=== PATIENT | female | born 1950 | race Caucasian/White ===

== ENCOUNTER → 2017-06-05 | Outpatient (CLI) | payer BC | END | disposition home or self-care (01) | LOC: C.PAPS 10:52 | PROVIDERS: ATTEND Obstetrics & Gynecology | DX: Z01.419 Encounter for gynecological examination (general) (routine) without abnormal findings (principal) ==

== ENCOUNTER → 2017-07-12 | Outpatient (CLI) | payer BC ==
[2017-07-12 18:49] LABS: URINE APPEARANCE CLOUDY (CLEAR); URINE BILIRUBIN NEG (NEG); URINE COLOR YELLOW; URINE NITRITE NEG (NEG); URINE SPECIFIC GRAVITY 1.021 (1.000-1.030); UROBILINOGEN NEG (NEG)
[2017-07-12 19:00] LABS: MANUAL MICROSCOPIC REQUIRED? NO; REVIEW REQ? NO
== END | disposition home or self-care (01) ==
LOC: C.LAB 17:37
PROVIDERS: ATTEND Obstetrics & Gynecology
DX: R39.9 Unspecified symptoms and signs involving the genitourinary system (principal); A49.8 Other bacterial infections of unspecified site

== ENCOUNTER → 2017-08-21 | Outpatient (CLI) | payer BC ==
[2017-08-21 13:03] LABS: MANUAL MICROSCOPIC REQUIRED? YES; REVIEW REQ? NO; URINE COLOR ORANGE
[2017-08-21 13:04] LABS: URINE SPECIFIC GRAVITY 1.014 (1.000-1.030)
[2017-08-21 13:12] LABS: SULFASALICYLIC ACID NEG (NEG); URINE APPEARANCE CLEAR (CLEAR)
[2017-08-21 13:32] LABS: URINE BACTERIA 1+ (NEG); URINE RBC 0-4 /hpf (0-4); URINE WBC >30 /hpf (0-5)
== END | disposition home or self-care (01) ==
LOC: C.LAB1850 11:22
PROVIDERS: ATTEND Obstetrics & Gynecology
DX: R39.9 Unspecified symptoms and signs involving the genitourinary system (principal)

== ENCOUNTER → 2017-09-20 | Outpatient (CLI) | payer BC ==
[2017-09-20 12:51] LABS: CHOLESTEROL/HDL RATIO 4.3; THYROID STIMULATING HORMONE 2.28 uIu/ml (0.300-4.500)
== END | disposition home or self-care (01) ==
LOC: C.LAB1850 11:26
PROVIDERS: ATTEND Physician Assistant
DX: Z00.00 Encounter for general adult medical examination without abnormal findings (principal); E78.5 Hyperlipidemia, unspecified; E03.9 Hypothyroidism, unspecified

== ENCOUNTER → 2017-11-17 | Outpatient (CLI) | payer OTHER ==
--- NOTE | 2017-11-17 15:08 | MAMMOGRAPHY REPORT ---
BILATERAL DIGITAL SCREENING MAMMOGRAM TOMOSYNTHESIS WITH CAD: 11/17/2017 CLINICAL HISTORY: Routine screening. Patient has no complaints. TECHNIQUE: Breast tomosynthesis in addition to standard 2D mammography was performed. Current study was also evaluated with a Computer Aided Detection (CAD) system. COMPARISON: Comparison is made to exams dated: 10/07/2016 mammogram, 07/14/2015 mammogram, 03/19/2013 ma mmogram, 07/27/2011 mammogram, 09/04/2009 mammogram - [facility], and 06/05/2008. BREAST COMPOSITION: There are scattered areas of fibroglandular density in both breasts. FINDINGS: No suspicious masses, calcifications, or areas of architectural distortion are noted in ei ther breast. There has been no significant interval change compared to prior exams. A biopsy marker clip is again noted within the left central breast from prior benign stereotactic biopsy of grouped c alcifications. Other scattered bilateral benign-appearing calcifications are not significantly parnell ed. Small circumscribed benign-appearing masses are again noted bilaterally, best seen on the tomosy nthesis images, which are considered benign given the multiplicity and bilaterality and likely repres ent cysts. IMPRESSION: ACR BI-RADS CATEGORY 2: BENIGN There is no mammographic evidence of malignancy. A 1 year screening mammogram is recommended. The pa tient will receive written notification of the results. Approximately 10% of breast cancers are not detected with mammography. A negative mammographic report should not delay biopsy if a clinically suggestive mass is present. Fernanda Tang M.D. /:11/17/2017 13:54:45 Gastroenterology Professor: Annmarie NGUYỄN(R)(M), [facility] letter sent: Normal 1/2 BI-RADS Code: ACR BI-RADS Category 2: Benign
== END | disposition home or self-care (01) ==
LOC: C.MAMM 13:06
PROVIDERS: ATTEND Obstetrics & Gynecology
DX: Z12.31 Encounter for screening mammogram for malignant neoplasm of breast (principal)

== ENCOUNTER → 2017-11-30 | Outpatient (CLI) | payer OTHER | END | disposition home or self-care (01) | LOC: C.LAB1850 10:54 | PROVIDERS: ATTEND Internal Medicine Endocrinology, Diabetes & Metabolism | DX: E11.9 Type 2 diabetes mellitus without complications (principal) ==

== ENCOUNTER → 2017-12-06 | Outpatient (CLI) | payer OTHER | END | disposition home or self-care (01) | LOC: C.LABSPEC 17:30 | PROVIDERS: ATTEND Urology | DX: R30.0 Dysuria (principal); R31.29 Other microscopic hematuria ==

== ENCOUNTER → 2017-12-18 | Outpatient (CLI) | payer OTHER ==
[~2017-12-18] MED LIST: ASPCH81X PO; LEVO100T7 PO; LOSA1TAB PO; METF-384 PO; MULT-1092 PO; VITAMIN D2 PO; WHEAPOW13 PO
[2017-12-18 12:07] LABS: HEMOGLOBIN 15.4 g/dL (12.0-16.0); MEAN CELL VOLUME 90.7 fL (80-100); MEAN CORPUSCULAR HEMOGLOBIN 31.8 pg (25-34); MEAN PLATELET VOLUME 12.5 fL (7.4-10.4); PLATELET COUNT 244 K/uL (130-400); RED CELL DISTRIBUTION WIDTH SD 43.3 fL (36.4-46.3); WHITE BLOOD COUNT 6.59 K/uL (4.8-10.8)
[2017-12-18 12:22] LABS: ALBUMIN 3.8 gm/dl (3.4-5.0); ALT/SGPT 26 U/L (12-78); BLOOD UREA NITROGEN 25 mg/dl (7-18); CALCIUM 9.9 mg/dl (8.5-10.1); CARBON DIOXIDE 25 mmol/L (21-32); CREATININE 0.67 mg/dl (0.60-1.20); GLUCOSE 148 mg/dl (70-99); POTASSIUM 4.4 mmol/L (3.5-5.1); SODIUM 137 mmol/L (136-145)
[2017-12-18 12:25] LABS: ALKALINE PHOSPHATASE 72 U/L (45-117); AST/SGOT 16 U/L (15-37); TOTAL PROTEIN 7.4 gm/dl (6.4-8.2)
[2017-12-18 12:38] LABS: HEMOGLOBIN A1C 6.2 % (4.5-5.6)
== END | disposition home or self-care (01) ==
LOC: C.LAB1850 09:41
PROVIDERS: ATTEND Urology
DX: E11.9 Type 2 diabetes mellitus without complications (principal); R30.0 Dysuria; R31.29 Other microscopic hematuria

== ENCOUNTER → 2017-12-25 | Outpatient (CLI) | payer OTHER ==
[~2017-12-25] MED LIST changes: +OPTIRAY 320 IV PRN
--- NOTE | 2017-12-25 09:50 | DIAGNOSTIC IMAGING REPORT ---
CT OF THE ABDOMEN AND PELVIS WITH AND WITHOUT CONTRAST HEMATURIA PROTOCOL CLINICAL HISTORY: Microscopic hematuria. Dysuria. COMPARISON STUDY: None. TECHNIQUE: Unenhanced and split bolus phase imaging of the abdomen and pelvis was performed. Injection of 93 cc Optiray 320 IV was uneventful. A dose lowering technique was utilized adhering to the principles of ALARA. CT DOSE: 1530.28 mGycm FINDINGS: Lung bases are unremarkable. The liver, spleen, adrenal glands and pancreas are normal. There is no biliary or pancreatic ductal dilatation. There is no peripancreatic or pericholecystic infiltration. There is no abdominal or pelvic lymphadenopathy. There is colonic diverticulosis without evidence for acute diverticulitis. No suspicious osseous lesions are present. An apparent 3.7 cm round left uterine lesion likely reflects a fibroid. There is a suspected smaller right uterine fibroid. No renal, ureteral or bladder calculi are present. There is no hydronephrosis or hydroureter. No upper tract urothelial lesions are identified. There are no solid renal lesions. Bladder is incompletely opacified but no discrete bladder mass is identified. Mild bladder wall thickening is accentuated by underdistention. IMPRESSION: 1. No CT findings to explain hematuria. No urinary calculi or upper tract urothelial lesions. No hydronephrosis. 2. Incomplete opacification of the bladder but no discrete bladder mass identified. 3. Colonic diverticulosis without evidence for acute diverticulitis. 4. Several suspected uterine fibroids. Electronically signed by: Khari Tsai M.D. 12/25/2017 9:49 AM Dictated Date/Time: 12/25/2017 9:11 AM
== END | disposition home or self-care (01) ==
LOC: C.CTS 08:30
PROVIDERS: ATTEND Urology
DX: R30.0 Dysuria (principal); R31.29 Other microscopic hematuria

== ENCOUNTER → 2017-12-27 | Outpatient (CLI) | payer OTHER ==
[~2017-12-27] MED LIST changes: -OPTIRAY 320 IV PRN
[2017-12-27 12:33] LABS: BLOOD UREA NITROGEN 25 mg/dl (7-18); CREATININE 0.73 mg/dl (0.60-1.20)
== END | disposition home or self-care (01) ==
LOC: C.LAB1850 10:16
PROVIDERS: ATTEND Internal Medicine Endocrinology, Diabetes & Metabolism
DX: R31.29 Other microscopic hematuria (principal)

== ENCOUNTER → 2018-01-08 | Day surgery (SDC) | payer BC, OTHER ==
[2017-12-27 12:00] VITALS: Ht 170.2 cm; Wt 80.9 kg
[~2018-01-08] VITALS: Ht 170.2 cm; Wt 80.9 kg
[~2018-01-08] MED LIST changes: +LIDOCAINE HCL 2% 2 ML VIAL (20MG/ML) ONE; +MIDAZOLAM HCL 1 MG/ML 2ML VIAL ONE; +PROPOFOL IV EMULSION 10 MG/ML 20 ML VIAL IV ONE; +SODIUM CHLORIDE 0.9% 500ML 500 ML IV ONE
--- NOTE | 2018-01-08 13:58 | Endo History and Physical ---
History & Physical Date of Service: Jan 08, 2018. Chief Complaint: Screening Referring Physician: Dr. Martin History of Present Illness 67 yo CF who presents for screening colonoscopy. Past Surgical History Hx Cardiac Surgery: No Hx Internal Defibrillator: No Hx Pacemaker: No Hx Abdominal Surgery: No Hx of Implantable Prosthesis: No Hx Post-Op Nausea and Vomiting: No Hx Cancer Surgery: No Hx Thoracic Surgery: No Hx Orthopedic: No Hx Urinary Tract Surgery: No Family History IBD Social History Smoking Status: Former Smoker Hx Substance Use: No Hx Alcohol Use: Yes ("A COUPLE OF GLASSES OF WINE WEEKLY") Allergies Coded Allergies: NO KNOWN DRUG ALLERGIES (Verified Allergy, Unknown, ., 12/27/17) Current Medications Reported Home Medications Medications Dose Route/Sig Max Daily Dose Days Date Category Benefiber (Wheat Dextrin) 1 Pow Pow 2 Tbs PO DAILY 12/27/17 Reported Centrum Silver 50+Women (Multiple Vitamins W/ Minerals) 1 Tab Tab 1 Tab PO DAILY 12/27/17 Reported Aspirin Chewable (Aspirin) 81 Mg Chew 81 Mg PO DAILY 12/27/17 Reported [Vitamin D2] 1.25 Mg PO WK 12/27/17 Reported Cozaar (Losartan Potassium) 25 Mg Tab 25 Mg PO QPM 12/27/17 Reported Glucophage (Metformin Hcl) 1,000 Mg Tab 1,000 Mg PO BID 12/27/17 Reported Levothyroxine Sodium 100 Mcg Tab 1 Tab PO QAM 12/27/17 Reported Vital Signs Weight (Kilograms): 80.91 Height (Feet): 5 Height (Inches): 7 Date Time Temp Pulse Resp B/P (MAP) Pulse Ox O2 Delivery O2 Flow Rate FiO2 01/08/18 13:30 36.4 70 18 168/93 (118) 100 Room Air Physical Exam General Appearance: WD/WN, no apparent distress Respiratory/Chest: Auscultation: breath sounds normal Cardiovascular: Heart Auscultation: RRR Abdomen: Bowel Sounds: normal Inspection & Palpation: soft, non-distended, no tenderness, guarding & rebound Assessment and Plan Assessment: 67 yo CF who presents for screening colonoscopy. Plan: Proceed with colonoscopy.
--- NOTE | 2018-01-08 14:41 | Discharge Instructions ---
Endoscopy Patient Instructions Date / Procedure(s) Performed Jan 08, 2018. Colonoscopy Allergy Information Coded Allergies: NO KNOWN DRUG ALLERGIES (Verified Allergy, Unknown, ., 12/27/17) Discharge Date / Findings Jan 08, 2018. Diverticulosis Internal hemorrhoids Medication Instructions Stopped Medication(s): Patient was told to stop her metformin on Monday. OK to resume all medications today as prescribed Reported Home Medications Medications Dose Route/Sig Max Daily Dose Days Date Category Benefiber (Wheat Dextrin) 1 Pow Pow 2 Tbs PO DAILY 12/27/17 Reported Centrum Silver 50+Women (Multiple Vitamins W/ Minerals) 1 Tab Tab 1 Tab PO DAILY 12/27/17 Reported Aspirin Chewable (Aspirin) 81 Mg Chew 81 Mg PO DAILY 12/27/17 Reported [Vitamin D2] 1.25 Mg PO WK 12/27/17 Reported Cozaar (Losartan Potassium) 25 Mg Tab 25 Mg PO QPM 12/27/17 Reported Glucophage (Metformin Hcl) 1,000 Mg Tab 1,000 Mg PO BID 12/27/17 Reported Levothyroxine Sodium 100 Mcg Tab 1 Tab PO QAM 12/27/17 Reported Provider Instructions Activity Restrictions - No exercising or heavy lifting for 24 hours. - Do not drink alcohol the day of the procedure. - Do not drive a car or operate machinery until the day after the procedure. - Do not make any important decisions or sign important papers in 24 hours after the procedure. Following Day: - Return to full activity which may include returning to work/school. Diet Start your diet with liquids and light foods (jello, soup, juice, toast). Then eat your usual diet if not nauseated. Treatment For Common After Affects For mild abdominal pain, bloating, or excessive gas: - Rest - Eat lightly - Lie on right side Follow-Up Information Follow-up with Dr. Martin as scheduled Anesthesia Information What You Should Know You have had a procedure that required some medicine to reduce anxiety and discomfort. This treatment is called moderate sedation. After receiving the treatment, you may be sleepy, but you will be able to breathe on your own. The effects of the treatment may last for several hours. Follow these instructions along with Activity/Diet recommendations noted above: * Do NOT do anything where dizziness or clumsiness would be dangerous. * Rest quietly at home today, then you can be up and about tomorrow. * Have a responsible person stay with you the rest of today. * You may have had an I.V. today. If so, you may take the dressing off later today. Recommendations Call your doctor if: * Trouble breathing * Continuous vomiting for more than 24 hours * Temperature above 101 degrees * Severe abdominal pain or bloating * Pain not relieved by pain medicine ordered * There is increased drainage or redness from any incision * A large amount of rectal bleeding greater than 2-3 tablespoons. (If you had a polyp/s removed or have hemorrhoids, a small amount of blood - from the rectum is to be expected.) * You have any unanswered questions or concerns. IN THE EVENT OF A SERIOUS EMERGENCY, GO TO THE NEAREST EMERGENCY ROOM Your discharge instructions were prepared by provider Vish Orozco. Patient Instructions Signature Page Annmarie Maurice Patient (or Guardian) Signature/Date: I have read and understand the instructions given to me by my caregivers. Caregiver/RN/Doctor Signature/Date: The above-named patient and/or guardian has received patient instructions on this date. + Original Patient Signature Page (only) stays with chart. Please make copy for patient.
--- NOTE | 2018-01-08 14:49 | GI REPORT ---
Procedure Date: 01/08/2018 1:42 PM Procedure: Colonoscopy Indications: Screening for colorectal malignant neoplasm Medicines: Monitored Anesthesia Care Complications: No immediate complications. Estimated Blood Loss: Estimated blood loss: none. Procedure: Pre-Anesthesia Assessment: - Prior to the procedure, a History and Physical was performed, and patient medications and allergies were reviewed. The patient's tolerance of previous anesthesia was also reviewed. The risks and benefits of the procedure and the sedation options and risks were discussed with the patient. All questions were answered, and informed consent was obtained. Prior Anticoagulants: The patient has taken aspirin, last dose was day of procedure. ASA Grade Assessment: II - A patient with mild systemic disease. After reviewing the risks and benefits, the patient was deemed in satisfactory condition to undergo the procedure. After I obtained informed consent, the scope was passed under direct vision. Throughout the procedure, the patient's blood pressure, pulse, and oxygen saturations were monitored continuously. The scope was introduced through the anus and advanced to the terminal ileum. The colonoscopy was performed without difficulty. The patient tolerated the procedure well. The quality of the bowel preparation was good. The terminal ileum, ileocecal valve, appendiceal orifice, and rectum were photographed. Findings: The perianal and digital rectal examinations were normal. Multiple small-mouthed diverticula were found in the sigmoid colon and descending colon. Non-bleeding internal hemorrhoids were found during retroflexion. The hemorrhoids were small. Impression: - Diverticulosis in the sigmoid colon and in the descending colon. - Non-bleeding internal hemorrhoids. - No specimens collected. Recommendation: - Resume previous diet. - Continue present medications. - Repeat colonoscopy in 10 years for surveillance. - Return to primary care physician as previously scheduled. Vish Orozco DO 01/08/2018 2:48:38 PM This report has been signed electronically. Note Initiated On: 01/08/2018 1:42 PM I attest to the content of the Intraoperative Record and orders documented therein, exceptions below
[2018-01-08 14:57] VITALS: BP 147/74; PULSE 62; O2SAT 100
--- NOTE | 2018-01-08 15:05 | Anesthesiology Progress Note ---
Anesthesia Post Op Note Date & Time Jan 08, 2018 at 15:04 Vital Signs Pain Intensity: 0 Vital Signs Past 12 Hours Date Time Temp Pulse Resp B/P (MAP) Pulse Ox O2 Delivery O2 Flow Rate FiO2 01/08/18 14:42 66 16 134/86 (102) 98 Room Air 01/08/18 14:27 68 16 124/67 (86) 96 Room Air 01/08/18 13:30 36.4 70 18 168/93 (118) 100 Room Air Notes Mental Status: alert / awake / arousable, participated in evaluation Pt Amnestic to Procedure: Yes Nausea / Vomiting: adequately controlled Pain: adequately controlled Airway Patency, RR, SpO2: stable & adequate BP & HR: stable & adequate Hydration State: stable & adequate Anesthetic Complications: no major complications apparent
== END | disposition home or self-care (01) ==
LOC: C.GI 12:55
PROVIDERS: ATTEND Internal Medicine
DX: Z12.11 Encounter for screening for malignant neoplasm of colon (principal); K57.30 Diverticulosis of large intestine without perforation or abscess without bleeding; K64.8 Other hemorrhoids; E11.9 Type 2 diabetes mellitus without complications; E03.9 Hypothyroidism, unspecified; I10 Essential (primary) hypertension; E78.5 Hyperlipidemia, unspecified; I48.91 Unspecified atrial fibrillation; Z87.891 Personal history of nicotine dependence; Z79.82 Long term (current) use of aspirin; Z79.84 Long term (current) use of oral hypoglycemic drugs

== ENCOUNTER → 2018-02-22 | Outpatient (CLI) | payer OTHER ==
[~2018-02-22] MED LIST changes: -LIDOCAINE HCL 2% 2 ML VIAL (20MG/ML) ONE; -MIDAZOLAM HCL 1 MG/ML 2ML VIAL ONE; -PROPOFOL IV EMULSION 10 MG/ML 20 ML VIAL IV ONE; -SODIUM CHLORIDE 0.9% 500ML 500 ML IV ONE
[2018-02-22 11:01] LABS: ALBUMIN 3.8 gm/dl (3.4-5.0); ALT/SGPT 27 U/L (12-78); AST/SGOT 15 U/L (15-37); BLOOD UREA NITROGEN 27 mg/dl (7-18); CALCIUM 10.1 mg/dl (8.5-10.1); CARBON DIOXIDE 25 mmol/L (21-32); CHOLESTEROL 116 mg/dl (0-200); CREATININE 0.72 mg/dl (0.60-1.20); GLUCOSE 137 mg/dl (70-99); POTASSIUM 4.6 mmol/L (3.5-5.1); SODIUM 136 mmol/L (136-145)
[2018-02-22 11:04] LABS: ALKALINE PHOSPHATASE 78 U/L (45-117); LDL CHOLESTEROL CALCULATED 57 mg/dl; TOTAL PROTEIN 7.4 gm/dl (6.4-8.2)
== END | disposition home or self-care (01) ==
LOC: C.LAB1850 09:56
PROVIDERS: ATTEND Internal Medicine
DX: E78.5 Hyperlipidemia, unspecified (principal); E11.9 Type 2 diabetes mellitus without complications

== ENCOUNTER → 2018-02-26 | Outpatient (CLI) | payer OTHER | END | disposition home or self-care (01) | LOC: C.LAB1850 15:42 | PROVIDERS: ATTEND Internal Medicine Endocrinology, Diabetes & Metabolism | DX: E03.9 Hypothyroidism, unspecified (principal) ==

== ENCOUNTER → 2018-06-20 | Outpatient (CLI) | payer OTHER ==
[2018-06-20 10:02] LABS: HEMATOCRIT 42.8 % (37-47); HEMOGLOBIN 14.9 g/dL (12.0-16.0); MEAN CELL VOLUME 90.9 fL (80-100); MEAN CORPUSCULAR HEMOGLOBIN 31.6 pg (25-34); MEAN CORPUSCULAR HGB CONC 34.8 g/dl (32-36); MEAN PLATELET VOLUME 12.6 fL (7.4-10.4); PLATELET COUNT 224 K/uL (130-400); RED CELL DISTRIBUTION WIDTH CV 13.7 % (11.5-14.5); RED CELL DISTRIBUTION WIDTH SD 45.6 fL (36.4-46.3); WHITE BLOOD COUNT 7.27 K/uL (4.8-10.8)
[2018-06-20 10:25] LABS: HEMOGLOBIN A1C 5.6 % (4.5-5.6)
[2018-06-20 10:53] LABS: ALBUMIN 3.9 gm/dl (3.4-5.0); ALKALINE PHOSPHATASE 65 U/L (45-117); ALT/SGPT 24 U/L (12-78); AST/SGOT 16 U/L (15-37); BLOOD UREA NITROGEN 31 mg/dl (7-18); CALCIUM 9.6 mg/dl (8.5-10.1); CARBON DIOXIDE 24 mmol/L (21-32); CHOLESTEROL 127 mg/dl (0-200); CREATININE 0.71 mg/dl (0.60-1.20); GLUCOSE 91 mg/dl (70-99); LDL CHOLESTEROL CALCULATED 60 mg/dl; POTASSIUM 4.3 mmol/L (3.5-5.1); SODIUM 136 mmol/L (136-145); TOTAL PROTEIN 7.7 gm/dl (6.4-8.2)
== END | disposition home or self-care (01) ==
LOC: C.LAB1850 09:06
PROVIDERS: ATTEND Internal Medicine
DX: Z00.00 Encounter for general adult medical examination without abnormal findings (principal); E03.9 Hypothyroidism, unspecified; E11.9 Type 2 diabetes mellitus without complications; E78.5 Hyperlipidemia, unspecified

== ENCOUNTER 2023-06-01 10:21 | Inpatient (IN) ==
--- NOTE | 2023-06-01 10:55 | Emergency Department Note ---
History of Present Illness General Chief complaint: Wound Stated complaint: WOUND ON BACK Time Seen by Provider: 06/01/23 10:42 Source: patient Mode of arrival: ambulatory Limitations: no limitations History of Present Illness Maximum Pain Intensity: 2 This patient 73-year-old female history of breast cancer with chemo last 3 weeks ago comes in after having issues with the wound. She is currently in [facility] where she is getting skilled wound care they were concerned about her wounds they sent her here she does not have any systemic complaints has been off for a month and a half. She is on antibiotics but is not sure which one no fever. No numbness or weakness. No chest pain or shortness of breath. She did have a mastectomy on the left side and does have a port on the right. She is on no blood thinners. Home Medications Medication Instructions Recorded Confirmed Type cholecalciferol (vitamin D3) 50 2,000 units PO .COMPLEX #1 tab 11/25/19 06/01/23 Rx mcg (2,000 unit) tablet cyanocobalamin (vitamin B-12) 1,000 mcg PO DAILY #30 caps 11/25/19 06/01/23 Rx 1,000 mcg capsule telmisartan 80 mg tablet 80 mg PO DAILY 09/12/22 06/01/23 History carvedilol 12.5 mg tablet 12.5 mg PO BID #180 tabs 09/16/22 06/01/23 Rx blood-glucose meter (Accu-Chek #1 ea 09/26/22 04/23/23 Rx Guide Glucose Meter) blood sugar diagnostic (Accu-Chek #100 ea 11/14/22 03/17/23 Rx Guide test strips) torsemide 10 mg tablet 10 mg PO DAILY #30 tabs 11/28/22 06/01/23 Rx empagliflozin 10 mg tablet 10 mg PO DAILY #90 tabs 01/12/23 06/01/23 Rx (Jardiance) lancets (Accu-Chek Fastclix Lancet #100 ea 02/10/23 04/23/23 Rx Drum) diphenoxylate-atropine 2.5 2 tab PO QID PRN diarrhea #60 tabs 04/23/23 06/01/23 Rx mg-0.025 mg tablet (Lomotil) levothyroxine 150 mcg tablet 150 mcg PO DAILY #90 tabs 05/22/23 06/01/23 Rx amlodipine 5 mg tablet 5 mg PO BID #60 tabs 05/24/23 06/01/23 Rx metformin 500 mg tablet,extended 1,000 mg PO BID #360 tabs 05/24/23 06/01/23 Rx release 24 hr alendronate 70 mg tablet See Rx Instructions .Route 05/25/23 06/01/23 Rx .COMPLEX #12 tabs atorvastatin 10 mg tablet 10 mg PO HS 06/01/23 06/01/23 History Allergies Allergy/AdvReac Type Severity Reaction Status Date / Time No Known Drug Allergies Allergy Unknown Verified 03/17/23 11:02 lactose AdvReac Verified 06/01/23 12:15 Past Med/Surg History Medical History Chronic Kidney Disease History of hyperthyroidism HTN (hypertension) Hypothyroidism Left knee DJD Osteoporosis Surgical History H/O mastectomy 01/30/23 History of tonsillectomy S/P breast biopsy S/P breast lumpectomy S/P cataract surgery Family History Mother Breast cancer Pure hypercholesterolemia Grandmother Liver cancer Father , Age 55 Acute myocardial infarction Pure hypercholesterolemia Myocardial infarction Denies family history of Ovarian cancer Prostate cancer Colorectal cancer Social History Smoking Status: Former smoker Age Quit Using Tobacco: 32; Second Hand Exposure: No; Do You Dip or Chew Tobacco: No; Hx Alcohol Use: Yes (Occasional glass of wine) Alcohol type: wine Alcohol Intake Frequency: 4 or More x per/Week Hx Substance Use: No Preferred Language: [place] Communication Ability: Effective Visual Impairment: Partially Limited Hearing Ability: Normal marital status: Single Current Living Situation: Alone current occupational status: retired current occupation: [employer] How many Children do You have: 0 Feels Safe at Home: Yes Childhood Exposure to Second-Hand Smoke: No caffeine: Yes (tea and coffee) Dental Care, Regularly: Yes Physical Activity Frequency: 5-6 Times per Week Physical Activity Frequency Comment: stopped at this moment due to new medication Seatbelt Use: always Sunscreen Use: No (doesn't go out in sun ) Review of Systems A total of 10 systems reviewed and were otherwise negative Physical Exam Vital Signs Vital Signs - 24 hr 06/01/23 10:37 06/01/23 10:52 06/01/23 11:07 Temperature 35.8 C L Temperature Source Temporal Artery Scan Pulse Rate 68 Pulse Rate [Apical] 64 Pulse Rhythm Regular Respiratory Rate 20 18 Respiratory Effort / Characteristics Non-Labored Spontaneous Respiratory Depth Normal Blood Pressure 121/61 Blood Pressure [Right Arm] 141/78 H Blood Pressure Mean 81 Blood Pressure Mean [Right Arm] 99 Pulse Oximetry 97 99 Oxygen Delivery Method Room Air Room Air Sepsis Recent Fever Within 48 Hours No Sepsis New/Unexplained Change in Mental Status No Sepsis Action Taken by Nursing No Action Required 06/01/23 12:28 06/01/23 12:30 Temperature Temperature Source Pulse Rate 63 Pulse Rate [Apical] 63 Pulse Rhythm Respiratory Rate 14 Respiratory Effort / Characteristics Respiratory Depth Blood Pressure Blood Pressure [Right Arm] 120/71 Blood Pressure Mean Blood Pressure Mean [Right Arm] 87 Pulse Oximetry 98 Oxygen Delivery Method Room Air Sepsis Recent Fever Within 48 Hours Sepsis New/Unexplained Change in Mental Status Sepsis Action Taken by Nursing General: Well developed well nourished older female who appears in no acute distress, breathing comfortably on room air. Normal speech HEENT: Normal cephalic atraumatic. Pupils are equal round and reactive to light. Extraocular movements are intact. Oropharynx is pink with moist mucous membranes. No swelling of the mouth lips or tongue. Neck: Supple with a midline trachea. No meningeal signs or stiffness, no JVD or bruits. No Stridor. Chest: Clear to auscultation bilaterally. No wheezes or rhonchi. No increased work of breathing. A port in right chest Heart: Regular rate and rhythm without murmurs or gallops. Abdomen: Soft nontender, nondistended without rebound guarding or rigidity. Rectal:( performed in the presence of female nurse continuous absorption process operator): There is a moderate to large decubitus ulcer which appears about a centimeter deep. There is no purulence, its not significantly red. Extremities: No cyanosis clubbing or edema. No calf tenderness or assymetry Spine/Back. Non tender to palpation. No CVA tenderness Skin: Good turgor without rashes. Neurologic exam: Cranial nerves two through 12 are intact. Motor and sensation are intact and symmetrical throughout. Course Administered Medications Daptomycin 225 mg/ Syringe 4.5 mls @ 2.25 mls/min IV Q24H NILDA; Protocol Stop: 06/08/23 13:59 Last Admin: 06/01/23 15:06 Dose: 2.25 mls/min Documented By: ENMANUEL Insulin Aspart (Insulin Aspart Per Unit Charge) 0 units SC ACHS NILDA; Protocol Stop: 07/01/23 12:59 Last Admin: 06/01/23 15:03 Dose: 6 units Documented By: ENMANUEL Co-signed By: LAUREANO Discontinued Medications Cefepime HCl 2,000 mg/ Syringe 20 mls @ 5 mls/min IV NOW STA; Protocol Stop: 06/01/23 12:10 Last Admin: 06/01/23 12:38 Dose: 5 mls/min Documented By: ENMANUEL Sodium Chloride (Nss 1000ml) 1,000 mls @ 999 mls/hr IV .Q1H1M ONE Stop: 06/01/23 13:07 Last Infusion: 06/01/23 14:10 Dose: 0 mls/hr Documented By: Admin: 06/01/23 12:27 Dose: 999 mls/hr Documented By: ENMANUEL Metronidazole (Flagyl) 500 mg in 100 mls @ 100 mls/hr IV NOW STA; Protocol Stop: 06/01/23 14:51 Last Admin: 06/01/23 15:05 Dose: 100 mls/hr Documented By: ENMANUEL Insulin Glargine (Lantus Per Unit Charge) 10 units SQ ONE ONE; Protocol Stop: 06/01/23 13:16 Last Admin: 06/01/23 15:05 Dose: 10 units Documented By: ENMANUEL Co-signed By: LAUREANO Insulin Human Regular (Novolin-R Insulin Per Unit Charge) 5 units IV NOW STA Stop: 06/01/23 12:27 Last Admin: 06/01/23 12:46 Dose: 5 units Documented By: ENMANUEL Co-signed By: MAUREEN Ioversol (Optiray 320 100ml) 93 ml IV ONCE ONE Stop: 06/01/23 14:29 Last Admin: 06/01/23 14:28 Dose: 93 ml Documented By: JANKI Medical Decision Making Differential Diagnosis Decubitus ulcer, sepsis, electrolyte or metabolic abnormality, complication related to cancer Medical Records Attestation: I reviewed the patient's medical records. Home Medications Current Medication List: was personally reviewed by me Laboratory Data Attestation: I reviewed the patient's lab results. 06/01/23 11:06 06/01/23 14:44 Lab Results 06/01/23 06/01/23 06/01/23 Range/Units 11:06 11:06 11:06 WBC 14.32 H (4.8-10.8) K/ul RBC 2.61 L (4.20-5.40) M/uL Hgb 8.1 L (12.0-16.0) g/dl Hct 23.5 L (37.0-47.0) % MCV 90.0 (80.0-100.0) fL MCH 31.0 (25.0-34.0) pg MCHC 34.5 (32.0-36.0) g/dL RDW Std Deviation 51.5 H (36.4-46.3) fL RDW Coeff of Donny 15.8 H (11.5-14.5) % Plt Count 324 (130-400) K/uL MPV 11.4 (9.4-12.4) fL Immature Gran % (Auto) 1.0 % Neut % (Auto) 92.5 % Lymph % (Auto) 3.3 % [place] % (Auto) 3.1 % Eos % (Auto) 0.0 % Baso % (Auto) 0.1 % Neut # (Auto) 13.26 H (1.40-6.50) K/uL Lymph # (Auto) 0.47 L (1.2-3.4) K/uL [place] # (Auto) 0.44 (0.11-0.59) K/uL Eos # (Auto) 0.00 (0-0.50) K/uL Baso # (Auto) 0.01 (0-0.2) K/uL Immature Gran # (Auto) 0.14 (0.01-0.20) K/uL ESR (0-30) mm/hr Sodium 124 L (136-145) mmol/L Potassium 5.9 H (3.5-5.1) mmol/L Chloride 97 L (98-107) mmol/L Carbon Dioxide 21 (21-32) mmol/L Anion Gap 6 (3-11) BUN 41 H (6-23) mg/dl Creatinine 1.58 H (0.6-1.2) mg/dl Est Cr Clr Drug Dosing Not Reportable Est GFR ( Amer) 37.8 ml/min Est GFR (Non-Af Amer) 32.6 ml/min BUN/Creatinine Ratio 25.9 H (10-20) Glucose 375 H* (70-99(Fasting)) mg/dl Osmolality (280-300) mOsm/kg Lactate 1.3 (0.4-2.0) mmol/L Calcium 8.2 L (8.6-10.3) mg/dl Magnesium 1.2 L (1.7-2.4) mg/dl Total Bilirubin 0.3 (0.2-1.0) mg/dl Direct Bilirubin 0.1 (0-0.2) mg/dl AST 11 L (13-39) U/L ALT 19 (7-52) U/L Alkaline Phosphatase 104 (34-104) U/L Troponin I High Sens 9.0 (0-14) pg/ml Total Protein 6.1 (6.0-8.3) gm/dl Albumin 3.0 L (3.4-5.0) gm/dl Procalcitonin (0-0.5) ng/ml SARS-CoV-2, RNA, NAAT (NEGATIVE) 06/01/23 06/01/23 06/01/23 Range/Units 11:06 11:06 11:06 WBC (4.8-10.8) K/ul RBC (4.20-5.40) M/uL Hgb (12.0-16.0) g/dl Hct (37.0-47.0) % MCV (80.0-100.0) fL MCH (25.0-34.0) pg MCHC (32.0-36.0) g/dL RDW Std Deviation (36.4-46.3) fL RDW Coeff of Donny (11.5-14.5) % Plt Count (130-400) K/uL MPV (9.4-12.4) fL Immature Gran % (Auto) % Neut % (Auto) % Lymph % (Auto) % [place] % (Auto) % Eos % (Auto) % Baso % (Auto) % Neut # (Auto) (1.40-6.50) K/uL Lymph # (Auto) (1.2-3.4) K/uL [place] # (Auto) (0.11-0.59) K/uL Eos # (Auto) (0-0.50) K/uL Baso # (Auto) (0-0.2) K/uL Immature Gran # (Auto) (0.01-0.20) K/uL ESR 55 H (0-30) mm/hr Sodium (136-145) mmol/L Potassium (3.5-5.1) mmol/L Chloride (98-107) mmol/L Carbon Dioxide (21-32) mmol/L Anion Gap (3-11) BUN (6-23) mg/dl Creatinine (0.6-1.2) mg/dl Est Cr Clr Drug Dosing Est GFR ( Amer) ml/min Est GFR (Non-Af Amer) ml/min BUN/Creatinine Ratio (10-20) Glucose (70-99(Fasting)) mg/dl Osmolality 292 (280-300) mOsm/kg Lactate (0.4-2.0) mmol/L Calcium (8.6-10.3) mg/dl Magnesium (1.7-2.4) mg/dl Total Bilirubin (0.2-1.0) mg/dl Direct Bilirubin (0-0.2) mg/dl AST (13-39) U/L ALT (7-52) U/L Alkaline Phosphatase (34-104) U/L Troponin I High Sens (0-14) pg/ml Total Protein (6.0-8.3) gm/dl Albumin (3.4-5.0) gm/dl Procalcitonin 0.12 (0-0.5) ng/ml SARS-CoV-2, RNA, NAAT (NEGATIVE) 06/01/23 Range/Units 12:33 WBC (4.8-10.8) K/ul RBC (4.20-5.40) M/uL Hgb (12.0-16.0) g/dl Hct (37.0-47.0) % MCV (80.0-100.0) fL MCH (25.0-34.0) pg MCHC (32.0-36.0) g/dL RDW Std Deviation (36.4-46.3) fL RDW Coeff of Donny (11.5-14.5) % Plt Count (130-400) K/uL MPV (9.4-12.4) fL Immature Gran % (Auto) % Neut % (Auto) % Lymph % (Auto) % [place] % (Auto) % Eos % (Auto) % Baso % (Auto) % Neut # (Auto) (1.40-6.50) K/uL Lymph # (Auto) (1.2-3.4) K/uL [place] # (Auto) (0.11-0.59) K/uL Eos # (Auto) (0-0.50) K/uL Baso # (Auto) (0-0.2) K/uL Immature Gran # (Auto) (0.01-0.20) K/uL ESR (0-30) mm/hr Sodium (136-145) mmol/L Potassium (3.5-5.1) mmol/L Chloride (98-107) mmol/L Carbon Dioxide (21-32) mmol/L Anion Gap (3-11) BUN (6-23) mg/dl Creatinine (0.6-1.2) mg/dl Est Cr Clr Drug Dosing Est GFR ( Amer) ml/min Est GFR (Non-Af Amer) ml/min BUN/Creatinine Ratio (10-20) Glucose (70-99(Fasting)) mg/dl Osmolality (280-300) mOsm/kg Lactate (0.4-2.0) mmol/L Calcium (8.6-10.3) mg/dl Magnesium (1.7-2.4) mg/dl Total Bilirubin (0.2-1.0) mg/dl Direct Bilirubin (0-0.2) mg/dl AST (13-39) U/L ALT (7-52) U/L Alkaline Phosphatase (34-104) U/L Troponin I High Sens (0-14) pg/ml Total Protein (6.0-8.3) gm/dl Albumin (3.4-5.0) gm/dl Procalcitonin (0-0.5) ng/ml SARS-CoV-2, RNA, NAAT NEGATIVE (NEGATIVE) Imaging Data Attestation: I personally reviewed and interpreted this imaging study as follows: My Impression: Chest x-rayno acute infiltrate, failure, pneumothorax seen Radiologist's Impression: Chest X-Ray 06/01/23 10:52 XR chest 1V portable HISTORY: Sepsis COMPARISON: Chest 04/23/2023. FINDINGS: No pneumothorax. No pleural effusions. There are low lung volumes. A f ew bibasilar linear densities favor subsegmental atelectasis or scarring. Otherwise, no focal lung consolidations to suggest a pneumonia. No evidence for pulmonary edema. The cardiac silhouette is top normal in size. A right jugular Port-A-Cath terminates in the SVC. There are surgical clips within the left axilla/chest wall. There are healing left lower lateral rib fractures. IMPRESSION: 1. Healing left lateral rib fractures. No pneumothorax. 2. Bibasilar linear densities are nonspecific but favor subsegmental atelectasis or scarring. ACT 112: Negative or not required by law. Electronically signed by: Owen Cabral M.D. 06/01/2023 11:28 AM ECG Data Attestation: I personally reviewed and interpreted this ECG as follows: Indication: + weakness Rate (beats per minute): 65 Rhythm: + normal sinus ECG Intervals/blocks: + Normal QRS, + Normal QT and + Normal ND ECG [place]: + Normal ECG ST segments: + Normal ST segments ECG Findings: + LVH; no PACs or no PVCs Comparison ECG Date: from (04/23/23) Change: the following changes noted (ST and T waves are improved) MDM Narrative This patient comes in described above. She was placed on a residential monitor in room B9. She is here for treatment and evaluation of the decubitus ulcer. Her a port was accessed blood work was obtained including blood cultures she was reassessed frequently. Her decubitus ulcer is moderate to large it appears fairly deep but not significantly red and there is no purulence. Blood work was obtained including blood cultures lactic acid was normal however white count is elevated at 14. She does have baseline anemia with a hemoglobin of 8.1 sodium was low at 124 oh and some this may be pseudohyponatremia secondary to blood sugar of 375 she does not appear to be acidotic or in DKA but her BUN and creatinine are also elevated at 41 and 1.58 she is likely dehydrated she was given normal saline 1 L normal saline in addition to IV cefepime 2 g for antibiotic coverage. COVID testing was negative. I do think she needs to be admitted for further treatment evaluation of her decubitus ulcer as well as her metabolic derangements. I have discussed the case at length with the [facility] hospitalists, Dr. Carpio and Luis M Carrion. The patient will be admitted/observed Continuous cardiac monitoring: Orders placed in EMR for continuous cardiac monitoring: Upon my evaluation patient was noted be in normal sinus rhythm with a rate of 65 Impression & Plan Acute hyponatremia, Decubitus ulcer, Hyperglycemia, Acute dehydration, Acute renal insufficiency, Lab test negative for COVID-19 virus Discharge Plan Visit Data Chief Complaint: Wound Stated Complaint: WOUND ON BACK ED Provider: Musa Burrell Discharge Problem: Acute hyponatremia, Decubitus ulcer, Hyperglycemia, Acute dehydration, Acute renal insufficiency, Lab test negative for COVID-19 virus Discharge Instructions Interventions: ED Discharge Assessment Last Done: 06/01/23 15:11
--- NOTE | 2023-06-01 11:29 | XRay Report ---
XR chest 1V portable HISTORY: Sepsis COMPARISON: Chest 04/23/2023. FINDINGS: No pneumothorax. No pleural effusions. There are low lung volumes. A few bibasilar linear d ensities favor subsegmental atelectasis or scarring. Otherwise, no focal lung consolidations to sugge st a pneumonia. No evidence for pulmonary edema. The cardiac silhouette is top normal in size. A righ t jugular Port-A-Cath terminates in the SVC. There are surgical clips within the left axilla/chest wa ll. There are healing left lower lateral rib fractures. IMPRESSION: 1. Healing left lateral rib fractures. No pneumothorax. 2. Bibasilar linear densities are nonspecific but favor subsegmental atelectasis or scarring. ACT 112: Negative or not required by law. Electronically signed by: Owen Cabral M.D. 06/01/2023 11:28 AM
[2023-06-01 11:49] LABS: Hematocrit (blood only) 23.5 % (37.0-47.0); Hemoglobin 8.1 g/dl (12.0-16.0); Mean Corpuscular Hgb Conc 34.5 g/dL (32.0-36.0); Mean Platelet Volume 11.4 fL (9.4-12.4); Platelet Count 324 K/uL (130-400); RDW Coefficient of Variation 15.8 % (11.5-14.5); RDW Standard Deviation 51.5 fL (36.4-46.3); Red Blood Count 2.61 M/uL (4.20-5.40); White Blood Count 14.32 K/ul (4.8-10.8)
[2023-06-01 12:03] LABS: Alanine Aminotransferase 19 U/L (7-52); Alkaline Phosphatase 104 U/L (34-104); Anion Gap 6 (3-11); Aspartate Aminotransferase 11 U/L (13-39); BUN Creatinine Ratio 25.9 (10-20); Bilirubin Direct 0.1 mg/dl (0-0.2); Bilirubin,Total 0.3 mg/dl (0.2-1.0); Blood Urea Nitrogen 41 mg/dl (6-23); Calcium 8.2 mg/dl (8.6-10.3); Carbon Dioxide 21 mmol/L (21-32); Chloride 97 mmol/L (98-107); Est GFR (African American) 37.8 ml/min; Est GFR (Non-African American) 32.6 ml/min; Glucose 375 mg/dl (70-99(Fasting)); Magnesium 1.2 mg/dl (1.7-2.4); Potassium 5.9 mmol/L (3.5-5.1); Sodium 124 mmol/L (136-145); Total Protein 6.1 gm/dl (6.0-8.3)
[2023-06-01] MEDS ORDERED: SODIUM CHLORIDE 0.9% 1000ML 1,000 ML IV ONE (12:07)
[2023-06-01] MEDS ORDERED: CEFEPIME 2,000 MG in SYRINGE 0 ML IV STA (12:07)
[2023-06-01 12:14] LABS: Basophils # (auto) 0.01 K/uL (0-0.2); Basophils % (auto) 0.1 %; Immature Granulocytes # (auto) 0.14 K/uL (0.01-0.20); Lymphocytes # (auto) 0.47 K/uL (1.2-3.4); Lymphocytes % (auto) 3.3 %; Monocytes # (auto) 0.44 K/uL (0.11-0.59); Monocytes % (auto) 3.1 %; Neutrophils # (auto) 13.26 K/uL (1.40-6.50); Neutrophils % (auto) 92.5 %
[2023-06-01] MEDS ORDERED: NovoLIN-R INSULIN PER UNIT CHARGE IV STA (12:26)
--- NOTE | 2023-06-01 12:53 | History & Physical Report ---
Date of Service June 01, 2023 Assessment & Plan (1) Hyperkalemia: Plan: -Admit to the PCU on tele -Currently stable -Found to be hyperkalemic at 5.9 in the ED -Likely multifactorial including mild PAM and continued KCL ER supplementation at [facility] with last dose this am -No acute ECG changes in the ED -Was give 1L NSS in the ED and 5 units IV insulin on admission -Will hold potassium chloride today for now -Continue to monitor on tele -Will repeat STAT CMP, Mag, and phos after initial treatment in the ED and on admission -SQ heparin for DVT PPX -DMII diet, No free water due to hyponatremia -AM CBC, CMP, Mag (2) Hyponatremia: Plan: -Corrected sodium of 128 in the ED, was noted to be similar per labs from [facility] Yesterday -Patient is asymptomatic -Unsure of the exact etiology at this time, per her MAR from [facility] she has not had a dose of Torsemide since 05/26. She appears slightly dehydrated on exam and her appetite has been poor since starting chemotherapy so malnutrition and dehydration are likely contributing. She is high risk for SIADH with he r active cancer, recent chemotherapy, sacral ulcer, and possible UTI -S/P 1L NSS in the ED -Will obtain serum and urine osmolality, urine sodium and urine potassium for further evaluation -Hold diuretics and further IV fluids for now -Free water restriction added to diet order and explained to nursing staff and patient. She can have liquids with electrolytes -Will monitor repeat labs this afternoon and will determine the need for trending labs based on results -Monitor daily renal function and electrolytes (3) Sacral decubitus ulcer: Plan: -Patient with large and deep sacral decubitus ulcer which has been present for the past month -Ulcer is draining pus on exam -Culture results from [facility] as per HPI -Had been on Augmentin and Flagyl -Will continue with Cefepime, Daptomycin, and flagyl for now -Will obtain repeat wound culture, obtain CT of the abd/pelvis w/IV con, and consult general surgery for evaluation -Follow blood and wound cultures -Turn and position q2h (4) PAM (acute kidney injury): Plan: -Cr today is 1.58, baseline appears near 1.1-1.2 -Likely due to dehydration, infections, and possibly chemotherapy -Obtaining CT of the abd/pelvis w/IV con as we need to obtain more details regarding her sacral ulcer, presence of any abscess, and bone involvement -Avoid Nephrotoxic agents -Hold Telmisartan for now -Monitor daily renal function and electrolytes (5) UTI (urinary tract infection): Plan: -Patient was being treated for possible UTI at [facility], no UA or urine cultures available at this time -Will repeat UA and urine culture on admission -Continue Cefepime for now (6) Hypomagnesemia: Plan: -Mag at 1.2 today -Has been a chronic issue for her -Likely due to malnutrition, diuretic use, and recent bout of diarrheal illness -Waiting for repeat labs to replete as we need to stabilize her potassium first -Continue to monitor on tele -Monitor am renal function and electrolytes (7) Breast cancer: Plan: -S/P left total mastectomy in January of this year -Follows with Dr. Escoto -Had been on weekly Paclitaxel and trastuzumab therapy but has been on a 3 week break due to clinical decline -Patient will stop Paclitaxel but continue trastuzumab per her discussions with Dr. Escoto yesterday -If she has a prolonged admission would consult Dr. Ecsoto to follow to help with coordination of care on discharge as next treatment is scheduled for next (8) HTN (hypertension): Plan: -Stable -Can continue amlodipine and carvedilol but will hold Telmisartan and torsemide for now (9) Hypothyroidism: Plan: -Continue levothyroxine (10) Diabetes type 2, controlled: Plan: -Noted to be hyperglycemic at 375 on arrival -Per [facility] JAN, metformin had been held since last week due to Diarrhea, patient was still on Jardiance -S/P 5 units IV insulin for hyperkalemia on admission -Will hold oral agents -Monitor BSg q4h until glucose and electrolytes are stable -Start 5 units lantus BID and CF of 50 q4h for now -Pharmacy glycemic consult placed -DMII diet (11) Dyslipidemia: Plan: -Continue statin Plan The patient was discussed with Dr. Carpio at the time of the admission History of Present Illness Chief Complaint: Abnormal labs Primary Care Provider: Luna Adamson PA-C Annmarie is a 73 year old female resident of [facility] with a PMH significant for left invasive ductal carcinoma S/P left mastectomy currently on Paclitaxel and trastuzumab therapy , atrial fibrillation in the setting of hyperthyroidism S/P thyroid ablation, hypothyroidism, HTN, and DM II who presented to the [facility] ED via EMS on 06/01 due to abnormal outpatient labs. In the ED the patient was noted to be hypothermic at 35.8C but otherwise stable. Labs were significant for a leukocytosis of 14 with left shift of 13, hgb of 8.1, lymphopenia of 0.47, cr of 1.58 (baseline is near 1.1-1.2), BUN of 41, glucose of 375, corrected sodium of 128, potassium of 5.9, chloride of 97, mag of 1.2. Chest xray was read as "1. Healing left lateral rib fractures. No pneumothorax. 2. Bibasilar linear densities are nonspecific but favor subsegmental atelectasis or scarring.". Prior to admission the patient was given 1L NSS and a dose of cefepime. At the time of the exam the exam the patient was sitting in bed in no acute distress. She states that she was moved into the longterm facility at [facility] last as she was requiring more assistance than was provided at the assisted living section. Prior to the move she had been dealing with frequent diarrhea due to her chemotherapy, this has resolved since last . She states that she had a visit with Dr. Escoto yesterday to discuss further treatment plans. She will no longer be taking the Paclitaxel as the side effects have been too severe. She will continue taking weekly trastuzumab with her next appointment scheduled for next . She tells me that she was started on antibiotics at [facility] both for her sacral wound and for a possible UTI, she is unsure of the antibiotics she has been on recently. She states that she was sent to the ED both for her worsening sacral wound and for her abnormal labs this am. She wishes to be a full code. Per her transfer documentation from [facility], the patient was given one dose of Ceftriaxone on 05/29, has been on Augmentin and Flagyl since 05/30, the description states that these antibiotics are for UTI and her Sacral wound. Her last dose of torsemide and telmisartan was given on 05/26. The patient has also been on Potassium Chloride ER tabs, 20 mg daily with her last dose being this am. Wound cultures were obtained at [facility], collection date of 05/27 with report date of 05/31. Per the provided records the patient's wound has grown Staph Aureus, Bacteroides Fragilis, and Clostridium Perfringens. Please refer to Dr. Carpio's attestation for any changes to the treatment Allergies Allergy/AdvReac Type Severity Reaction Status Date / Time No Known Drug Allergies Allergy Unknown Verified 03/17/23 11:02 lactose AdvReac Verified 06/01/23 12:15 Home Medications Medication Instructions Recorded Confirmed Type cholecalciferol (vitamin D3) 50 2,000 units PO .COMPLEX #1 tab 11/25/19 06/01/23 Rx mcg (2,000 unit) tablet cyanocobalamin (vitamin B-12) 1,000 mcg PO DAILY #30 caps 11/25/19 06/01/23 Rx 1,000 mcg capsule telmisartan 80 mg tablet 80 mg PO DAILY 09/12/22 06/01/23 History carvedilol 12.5 mg tablet 12.5 mg PO BID #180 tabs 09/16/22 06/01/23 Rx blood-glucose meter (Accu-Chek #1 ea 09/26/22 04/23/23 Rx Guide Glucose Meter) blood sugar diagnostic (Accu-Chek #100 ea 11/14/22 03/17/23 Rx Guide test strips) torsemide 10 mg tablet 10 mg PO DAILY #30 tabs 11/28/22 06/01/23 Rx empagliflozin 10 mg tablet 10 mg PO DAILY #90 tabs 01/12/23 06/01/23 Rx (Jardiance) lancets (Accu-Chek Fastclix Lancet #100 ea 02/10/23 04/23/23 Rx Drum) diphenoxylate-atropine 2.5 2 tab PO QID PRN diarrhea #60 tabs 04/23/23 06/01/23 Rx mg-0.025 mg tablet (Lomotil) levothyroxine 150 mcg tablet 150 mcg PO DAILY #90 tabs 05/22/23 06/01/23 Rx amlodipine 5 mg tablet 5 mg PO BID #60 tabs 05/24/23 06/01/23 Rx metformin 500 mg tablet,extended 1,000 mg PO BID #360 tabs 05/24/23 06/01/23 Rx release 24 hr alendronate 70 mg tablet See Rx Instructions .Route 05/25/23 06/01/23 Rx .COMPLEX #12 tabs atorvastatin 10 mg tablet 10 mg PO HS 06/01/23 06/01/23 History Past Med/Surg History Medical History Chronic Kidney Disease History of hyperthyroidism HTN (hypertension) Hypothyroidism Left knee DJD Osteoporosis Surgical History H/O mastectomy 01/30/23 History of tonsillectomy S/P breast biopsy S/P breast lumpectomy S/P cataract surgery Family History Mother Breast cancer Pure hypercholesterolemia Grandmother Liver cancer Father , Age 55 Acute myocardial infarction Pure hypercholesterolemia Myocardial infarction Denies family history of Ovarian cancer Prostate cancer Colorectal cancer Social History Smoking Status: Former smoker Age Quit Using Tobacco: 32; Second Hand Exposure: No; Do You Dip or Chew Tobacco: No; Hx Alcohol Use: Yes Alcohol type: wine Alcohol Intake Frequency: 4 or More x per/Week Hx Substance Use: No Preferred Language: [place] Citizen Communication Ability: Effective Visual Impairment: Partially Limited Hearing Ability: Normal Neonatal Intensive Care Nurse Required: No Beliefs That Will Affect Care: Spiritual marital status: Single Current Living Situation: Care Home current occupational status: retired current occupation: [employer] How many Children do You have: 0 Other Information That Helps Us Care for You: No Feels Safe at Home: Yes Safety Concerns: Feels Safe At This Time Childhood Exposure to Second-Hand Smoke: No caffeine: Yes (tea and coffee) Dental Care, Regularly: Yes Physical Activity Frequency: 5-6 Times per Week Physical Activity Frequency Comment: stopped at this moment due to new medication Seatbelt Use: always Sunscreen Use: No (doesn't go out in sun ) Assistive Devices: Cane Physical Exam Physical Exam: Physical Exam: General: In no acute distress, stated age, chronically ill-appearing but non-toxic HEENT: Normocephalic, atraumatic, no scleral icterus, pupils around round, symmetrical, and reactive to light, moist mucus membranes, trachea midline, no thyromegaly Chest/Pulm: No respiratory distress, symmetrical chest expansion, clear breath sounds throughout Cardiac: RRR, no murmurs noted Abdomen: Negative for ascites and bruising, normoactive bowel sounds, soft, non-tender to palpation throughout Musculoskeletal: Symmetrical and without signs of acute trauma, upper and lower extremities with full ROM, no atrophy, spasticity, or flaccidity Extremities: Radial, dorsalis pedis, and posterior tibial pulses are intact and symmetrical, no edema noted in the BL LE's Skin: patient with an approximately 4cm x 4 cm circular sacral ulcer with surrounding erythema and pustulous drainage Neuro: Alert and oriented to person, place, month, year, and president, no focal defects, no tremors noted Psych: No acute distress, calm and cooperative during the exam Results & Data Results & Data Vital Signs (Past 12 Hours) Vital Signs Temp Pulse Pulse Resp BP BP Pulse Ox 06/01/23 12:30 63 06/01/23 12:28 63 14 120/71 98 06/01/23 11:07 64 18 141/78 H 99 06/01/23 10:52 06/01/23 10:37 35.8 C L 68 20 121/61 97 O2 Del Method 06/01/23 12:30 06/01/23 12:28 Room Air 06/01/23 11:07 06/01/23 10:52 Room Air 06/01/23 10:37 Room Air Laboratory Results Abnormal lab results 06/01/23 06/01/23 Range/Units 11:06 11:06 WBC 14.32 H (4.8-10.8) K/ul RBC 2.61 L (4.20-5.40) M/uL Hgb 8.1 L (12.0-16.0) g/dl Hct 23.5 L (37.0-47.0) % RDW Std Deviation 51.5 H (36.4-46.3) fL RDW Coeff of Donny 15.8 H (11.5-14.5) % Neut # (Auto) 13.26 H (1.40-6.50) K/uL Lymph # (Auto) 0.47 L (1.2-3.4) K/uL Sodium 124 L (136-145) mmol/L Potassium 5.9 H (3.5-5.1) mmol/L Chloride 97 L (98-107) mmol/L BUN 41 H (6-23) mg/dl Creatinine 1.58 H (0.6-1.2) mg/dl BUN/Creatinine Ratio 25.9 H (10-20) Glucose 375 H* (70-99(Fasting)) mg/dl Calcium 8.2 L (8.6-10.3) mg/dl Magnesium 1.2 L (1.7-2.4) mg/dl AST 11 L (13-39) U/L Albumin 3.0 L (3.4-5.0) gm/dl Diagnostic Findings Chest X-Ray 06/01/23 10:52 XR chest 1V portable HISTORY: Sepsis COMPARISON: Chest 04/23/2023. FINDINGS: No pneumothorax. No pleural effusions. There are low lung volumes. A few bibasilar linear densities favor subsegmental atelectasis or scarring. Otherwise, no focal lung consolidations to suggest a pneumonia. No evidence for pulmonary edema. The cardiac silhouette is top normal in size. A right jugular Port-A-Cath terminates in the SVC. There are surgical clips within the left axilla/chest wall. There are healing left lower lateral rib fractures. IMPRESSION: 1. Healing left lateral rib fractures. No pneumothorax. 2. Bibasilar linear densities are nonspecific but favor subsegmental atelectasis or scarring. ACT 112: Negative or not required by law. Electronically signed by: Owen Cabral M.D. 06/01/2023 11:28 AM ECG Additional Comments: Normal sinus rhythm Minimal voltage criteria for LVH, may be normal variant ( R in aVL ) Borderline ECG When compared with ECG of 23-APR-2023 07:08, ST no longer depressed in Anterior leads T wave inversion no longer evident in Anterior leads Code Status & VTE Plan Code Status Full code VTE Prophylaxis Plan VTE Prophylaxis will be ordered: Yes Supervising Physician Co-Signing Physician Notes I personally saw and examined the patient. I verified all jackson points and agree with Luis M Carrion PA-C with the following exceptions and/or additions: 73 year old female presents to the ER due to abnormal outpatient labs with sacral ulcer. O/E A&Ox3, no acute distress, Chest CTAB, HS RRR, no murmurs, Abdo SNT, 3cm circumference unstageable sacral ulcer without surrounding erythema A/P Hyperkalemia - suspect due to APM, potassium supplementation. Suspect will resolve with just holding supplementation Hyponatremia - serum osm, urine osm/Na, free water restrict PAM - suspect mainly pre-renal, continue to trend with IV fluids, agree with holding telmisartan Unstageable pressure sacral ulcer - CT without abscess, no surrounding cellulitis on exam but getting worse with some pus therefore will treat with broad spectrum IV antibiotics (daptomycin, cefepime, metronidazole) pending rep eat wound cultures, consult wound care nurse to consider wound vac, consult surgery to consider debridement. Otherwise as above PG Care Time/CCT Total # of Minutes Spent Total Time Spent with Patient: Total time spent is greater than 50% in coordination of care (as documented) at patient's floor/unit and/or counseling patient: C[place] [address] INT INP/OBS CARE 3/75MIN Patient Type Established Medical Decision Making High Complexity Diagnoses Hyperkalemia E87.5 Hyponatremia E87.1 Sacral decubitus ulcer L89.159 PAM (acute kidney injury) N17.9 UTI (urinary tract infection) N39.0 Hypomagnesemia E83.42 Breast cancer C50.919 HTN (hypertension) I10 Hypothyroidism E03.9 Diabetes type 2, controlled E11.9 Dyslipidemia E78.5
[2023-06-01] MEDS ORDERED: CARBOHYDRATES FOR HYPOGLYCEMIA PO PRN (12:54)
[2023-06-01] MEDS ORDERED: PHARMACY GLYCEMIC MGMT CONSULT PRN (12:54)
[2023-06-01] MEDS ORDERED: GLUCAGON FOR INJ 1 MG VIAL SQ PRN (12:54)
[2023-06-01] MEDS ORDERED: DEXTROSE 50% 50 ML SYRINGE IV PRN (12:54)
[2023-06-01] MEDS ORDERED: GLUCOSE 40% GEL 15 GM TUBE PO PRN (12:54)
[2023-06-01] MEDS ORDERED: GLUCOSE 10 TAB/TUBE PO PRN (12:54)
--- NOTE | 2023-06-01 12:57 | Electrocardiogram Report ---
Test Reason : Blood Pressure : / mmHG Vent. Rate : 063 BPM Atrial Rate : 063 BPM P-R Int : 182 ms QRS Dur : 086 ms QT Int : 396 ms P-R-T Axes : 006 -07 024 degrees QTc Int : 405 ms Normal sinus rhythm Left ventricular hypertrophy Borderline ECG When compared with ECG of 23-APR-2023 07:08, ST no longer depressed in Anterior leads T wave inversion no longer evident in Anterior leads Confirmed by Canelo Pascual ([id number]) on 06/01/2023 12:56:28 PM Referred By: Confirmed By:Canelo Pascual
[2023-06-01] MEDS ORDERED: LANTUS PER UNIT CHARGE SQ ONE (13:15)
--- NOTE | 2023-06-01 13:31 | Pharmacy Report ---
Pharmacy Glycemic Short Note 2 - Date of Service June 01, 2023 - Glycemic Short BSG Results (Last 24 hours): 06/01/23 11:06 Glucose 375 H* 01/25/23 06/01/23 14:27 14:16 POC Glucose 300 H Hemoglobin A1c 5.8 H OUTPATIENT ANTIDIABETIC REGIMEN: * Metformin 1g PO BID * Jardiance 10mg PO daily ASSESSMENT: * 73 yo female, resident of [facility], PMH left invasive ductal carcinoma S/P left mastectomy currently on Paclitaxel and trastuzumab therapy, AFib, hyperthyroidism S/P thyroid ablation, hypothyroidism, HTN, and DM II who presented to the [facility] ED via EMS on 06/01 due to abnormal outpatient labs. * BSG 375mg/dl on admission, given 5 units of regular insulin IV, BSG down to 300mg/dl after, starting NovoLog and Lantus in ED. * Pt is maintained on oral antidiabetic agents as an outpatient * Oral agents are not recommended for inpatient use d/t drug interactions, changing PO intake, and difficulty titrating for acute hyper/hypoglycemia. ADA recommends re-initiating outpatient oral agents 1-2 days prior to discharge if/when appropriate if they were held on admission. * Will hold oral agents for admission and utilize SQ basal bolus insulin regimen which is the recommended regimen for inpatient glycemic control. * Will initiate weight based insulin dosing for insulin kamille patient and titrate based on BSG trends. PLAN FOR INPATIENT GLYCEMIC CONTROL: * Hold outpatient oral diabetes medications * Basal insulin * Lantus 10 units SQ x 1 now, 10 units HS for BSG > 180mg/dl, further dosing in AM * Bolus insulin * NovoLog per scale ACHS or Q6hrs while NPO * Goal Range: Low 110 mg/dL - High 140 mg/dL * Correction Factor: 30 mg/dL/unit * Nutritional / Prandial insulin per carb ratio of 1 unit per 10 grams CHO consumed
[2023-06-01] MEDS ORDERED: metroNIDAZOLE 500 MG/100 ML BAG IV STA (13:52)
[2023-06-01] MEDS ORDERED: OPTIRAY 320 100ml IV ONE (14:28)
[2023-06-01] MEDS: INSULIN ASPART PER UNIT CHARGE SC SCH ×3 (15:03→21:40)
--- NOTE | 2023-06-01 15:04 | CT Scan Report ---
ABDOMEN AND PELVIS CT WITH IV CONTRAST CT DOSE: 1076.59 mGy.cm HISTORY: Follow-up study in a patient with history of reported cubitus ulcer large sacral ulcer, nee d to monitor depth/severity TECHNIQUE: Multiaxial CT images of the abdomen and pelvis were performed following the IV administrat ion of 93 cc of Optiray, A dose lowering technique was utilized adhering to the principles of ALARA. COMPARISON STUDY: None FINDINGS: Partially imaged catheter is in the SVC. Coronary artery calcifications. Mild right hemidia phragmatic elevation. Subsegmental bibasilar atelectasis. No pneumatosis or pneumoperitoneum. Unremar kable spleen. Mildly atrophic pancreas with a few scattered coarse calcifications. 5 mm cystic focus of the pancreatic tail is likely benign. Thickening of the adrenal glands suggestive of hyperplasia. Nonspecific wall thickening of the gallbladder. Trace pericholecystic edema. Patent portal vein. Nonspecific mild cortical thinning of the kidneys. No hydronephrosis. Subcentimeter hypodensity of th e inferior pole right kidney, too small to characterize. The urinary bladder is distended measuring u p to 16 cm. Findings suggestive of fibroid uterus. Atherosclerosis of the aorta without aneurysm. No pathologically enlarged lymph nodes are seen. Tiny hiatal hernia suggested. Small bowel air-fluid levels within the mid to lower abdomen measuring up to 3 cm. Colonic diverticulosis. Moderate fecal retention of the cecum and ascending colon. Possib le soft tissue prominence versus stool within the cecum. Narrowing of the terminal ileum. Normal appe ndix. Midline dependent sacral ulcer measures up to approximately 2 cm in length. The depth is approx imately 7 mm from the dorsal cortex of the sacrum. No osseous erosion is identified. Superior endplat e compression at L4 is favored to be chronic. Lumbar levoscoliosis. IMPRESSION: 1. Small sacral decubitus ulcer. No fluid collection or evidence of osteomyelitis. 2. Nonspecific gallbladder wall thickening. Findings could be correlated with right upper quadrant ul trasound. 3. Soft tissue fullness of the cecum may be secondary to intraluminal stool. Findings could be correl ated with colonoscopy to exclude an underlying lesion. 4. Borderline dilated small bowel loops are likely physiologic. 5. Colonic diverticulosis. 6. Additional findings as above. ACT 112: Negative or not required by law. The above report was generated using voice recognition software. It may contain grammatical, syntax o r spelling errors. Electronically signed by: Mariano Shi M.D. 06/01/2023 3:01 PM
[2023-06-01] MEDS: DAPTOmycin 225 MG in SYRINGE 0 ML IV SCH (15:06)
[2023-06-01 15:24] LABS: Albumin Globulin Ratio 0.9 (0.9-2); Albumin Level 2.5 gm/dl (3.4-5.0); BUN Creatinine Ratio 29.5 (10-20); Bilirubin,Total 0.2 mg/dl (0.2-1.0); C Reactive Protein 2.22 mg/dl (0-0.5); Calcium 7.7 mg/dl (8.6-10.3); Creatinine Clr Calc Pharmacy 42.3 ml/min; Est GFR (African American) 48.2 ml/min; Est GFR (Non-African American) 41.6 ml/min; Globulin 2.7 gm/dl (2.5-4.0); Magnesium 1.1 mg/dl (1.7-2.4); Phosphorus 2.1 mg/dl (2.5-4.9); Potassium 5.1 mmol/L (3.5-5.1); Total Protein 5.2 gm/dl (6.0-8.3)
--- NOTE | 2023-06-01 16:20 | Surgery Consultation ---
Date of Consultation June 01, 2023 Assessment & Plan (1) Decubitus ulcer: 73 year-old female with worsening sacral decubitus ulcer presented to ED with abnormal labs and worsening wound [facility]. There is no evidence of abscess or fluid collection on CT scan or examination. There is some fibrinous tissue at wound base but no necrotic tissue. This can likely be treated with dressings +/- chemical debridement. No surgical debridement needed at this time. Would recommend antibiotics, await cultures, and wound care nurse evaluation. Needs air mattress and frequent repositioning turning every 2 hours to off load. We will continue to follow along. Dr. sanderson has seen and examined patient, agrees with above. History of Present Illness Reason for Consultation: Sacral wound Requesting Physician: Luis M Carrion PA-C Attending Physician: Yo Carpio MD History of Present Illness Annmarie is a 73 year old female resident of [facility] with a PMH significant for left invasive ductal carcinoma S/P left mastectomy currently on Paclitaxel and trastuzumab therapy , atrial fibrillation in the setting of hyperthyroidism S/P thyroid ablation, hypothyroidism, HTN, and DM II who presented to the [facility] ED via EMS due to abnormal outpatient labs and worsening sacral wound. She states she has had this wound for about 3 weeks now. States she was unsure how extensive it was. Has some associated discomfort. Was having diarrhea from her chemotherapy however this has since been discontinued. She is unaware of any fevers and denies of any chills. Mild nausea. No vomiting. States she has been on antibiotics for about 3 days but is uncertain of which ones. Allergies Allergy/AdvReac Type Severity Reaction Status Date / Time No Known Drug Allergies Allergy Unknown Verified 03/17/23 11:02 lactose AdvReac Verified 06/01/23 12:15 Home Medications Medication Instructions Recorded Confirmed Type cholecalciferol (vitamin D3) 50 2,000 units PO .COMPLEX #1 tab 11/25/19 06/01/23 Rx mcg (2,000 unit) tablet cyanocobalamin (vitamin B-12) 1,000 mcg PO DAILY #30 caps 11/25/19 06/01/23 Rx 1,000 mcg capsule telmisartan 80 mg tablet 80 mg PO DAILY 09/12/22 06/01/23 History carvedilol 12.5 mg tablet 12.5 mg PO BID #180 tabs 09/16/22 06/01/23 Rx blood-glucose meter (Accu-Chek #1 ea 09/26/22 04/23/23 Rx Guide Glucose Meter) blood sugar diagnostic (Accu-Chek #100 ea 11/14/22 03/17/23 Rx Guide test strips) torsemide 10 mg tablet 10 mg PO DAILY #30 tabs 11/28/22 06/01/23 Rx empagliflozin 10 mg tablet 10 mg PO DAILY #90 tabs 01/12/23 06/01/23 Rx (Jardiance) lancets (Accu-Chek Fastclix Lancet #100 ea 02/10/23 04/23/23 Rx Drum) diphenoxylate-atropine 2.5 2 tab PO QID PRN diarrhea #60 tabs 04/23/23 06/01/23 Rx mg-0.025 mg tablet (Lomotil) levothyroxine 150 mcg tablet 150 mcg PO DAILY #90 tabs 05/22/23 06/01/23 Rx amlodipine 5 mg tablet 5 mg PO BID #60 tabs 05/24/23 06/01/23 Rx metformin 500 mg tablet,extended 1,000 mg PO BID #360 tabs 05/24/23 06/01/23 Rx release 24 hr alendronate 70 mg tablet See Rx Instructions .Route 05/25/23 06/01/23 Rx .COMPLEX #12 tabs atorvastatin 10 mg tablet 10 mg PO HS 06/01/23 06/01/23 History Patient History Medical History Chronic Kidney Disease History of hyperthyroidism HTN (hypertension) Hypothyroidism Left knee DJD Osteoporosis Surgical History H/O mastectomy 01/30/23 History of tonsillectomy S/P breast biopsy S/P breast lumpectomy S/P cataract surgery Family History Mother Breast cancer Pure hypercholesterolemia Grandmother Liver cancer Father , Age 55 Acute myocardial infarction Pure hypercholesterolemia Myocardial infarction Denies family history of Ovarian cancer Prostate cancer Colorectal cancer Social History Smoking Status: Former smoker Age Quit Using Tobacco: 32; Second Hand Exposure: No; Do You Dip or Chew Tobacco: No; Hx Alcohol Use: Yes Alcohol type: wine Alcohol Intake Frequency: 4 or More x per/Week Hx Substance Use: No Preferred Language: Macedonian Communication Ability: Effective Visual Impairment: Partially Limited Hearing Ability: Normal Flap Maker Required: No Beliefs That Will Affect Care: None marital status: Single Current Living Situation: [facility] current occupational status: retired current occupation: [employer] How many Children do You have: 0 Other Information That Helps Us Care for You: No Feels Safe at Home: Yes Safety Concerns: Feels Safe At This Time Childhood Exposure to Second-Hand Smoke: No caffeine: Yes (tea and coffee) Dental Care, Regularly: Yes Physical Activity Frequency: 5-6 Times per Week Physical Activity Frequency Comment: stopped at this moment due to new medication Seatbelt Use: always Sunscreen Use: No (doesn't go out in sun ) Assistive Devices: Glasses, Walker and Wheelchair Physical Exam Constitutional: WD/WN, vitals as above cooperative and comfortable; no acute distress, not ill appearing and not diaphoretic Respiratory: normal respiratory effort; no respiratory distress Gastrointestinal (Abdomen): Sacral wound measuring about 4 x 4 cm with moist fibrinous tissue and one area of dry thick fibrinous tissue that was removed with scissors. THere is no necrotic tissue. No bone exposed. Surrounding erythema present. No palpable abscess/fluctuance. There is some healthy granulation tissue at base. Skin: no rashes, warm and dry Psychiatric: Orientation: alert and oriented x 3 Results & Data Vital Signs (Past 12 Hours) Vital Signs Temp Pulse Pulse Resp BP BP Pulse Ox 06/01/23 12:30 63 06/01/23 12:28 63 14 120/71 98 06/01/23 11:07 64 18 141/78 H 99 06/01/23 10:52 06/01/23 10:37 35.8 C L 68 20 121/61 97 O2 Del Method 06/01/23 12:30 06/01/23 12:28 Room Air 06/01/23 11:07 06/01/23 10:52 Room Air 06/01/23 10:37 Room Air Laboratory Results 06/01/23 06/01/23 06/01/23 Range/Units 14:44 14:16 12:33 WBC (4.8-10.8) K/ul RBC (4.20-5.40) M/uL Hgb (12.0-16.0) g/dl Hct (37.0-47.0) % MCV (80.0-100.0) fL MCH (25.0-34.0) pg MCHC (32.0-36.0) g/dL RDW Std Deviation (36.4-46.3) fL RDW Coeff of Donny (11.5-14.5) % Plt Count (130-400) K/uL MPV (9.4-12.4) fL Immature Gran % (Auto) % Neut % (Auto) % Lymph % (Auto) % Phillips % (Auto) % Eos % (Auto) % Baso % (Auto) % Neut # (Auto) (1.40-6.50) K/uL Lymph # (Auto) (1.2-3.4) K/uL Phillips # (Auto) (0.11-0.59) K/uL Eos # (Auto) (0-0.50) K/uL Baso # (Auto) (0-0.2) K/uL Immature Gran # (Auto) (0.01-0.20) K/uL ESR (0-30) mm/hr Sodium 125 L (136-145) mmol/L Potassium 5.1 (3.5-5.1) mmol/L Chloride 100 (98-107) mmol/L Carbon Dioxide 20 L (21-32) mmol/L Anion Gap 5 (3-11) BUN 38 H (6-23) mg/dl Creatinine 1.29 H (0.6-1.2) mg/dl Est Cr Clr Drug Dosing 42.3 Est GFR ( Amer) 48.2 ml/min Est GFR (Non-Af Amer) 41.6 ml/min BUN/Creatinine Ratio 29.5 H (10-20) Glucose 266 H (70-99(Fasting)) mg/dl POC Glucose 300 H (70-99) mg/dl Osmolality (280-300) mOsm/kg Lactate (0.4-2.0) mmol/L Calcium 7.7 L (8.6-10.3) mg/dl Phosphorus 2.1 L (2.5-4.9) mg/dl Magnesium 1.1 L (1.7-2.4) mg/dl Total Bilirubin 0.2 (0.2-1.0) mg/dl Direct Bilirubin (0-0.2) mg/dl AST 10 L (13-39) U/L ALT 17 (7-52) U/L Alkaline Phosphatase 87 (34-104) U/L Troponin I High Sens (0-14) pg/ml C-Reactive Protein 2.22 H (0-0.5) mg/dl Total Protein 5.2 L (6.0-8.3) gm/dl Albumin 2.5 L (3.4-5.0) gm/dl Globulin 2.7 (2.5-4.0) gm/dl Albumin/Globulin Ratio 0.9 (0.9-2) Procalcitonin (0-0.5) ng/ml SARS-CoV-2, RNA, NAAT NEGATIVE (NEGATIVE) 06/01/23 06/01/23 06/01/23 Range/Units 11:06 11:06 11:06 WBC (4.8-10.8) K/ul RBC (4.20-5.40) M/uL Hgb (12.0-16.0) g/dl Hct (37.0-47.0) % MCV (80.0-100.0) fL MCH (25.0-34.0) pg MCHC (32.0-36.0) g/dL RDW Std Deviation (36.4-46.3) fL RDW Coeff of Donny (11.5-14.5) % Plt Count (130-400) K/uL MPV (9.4-12.4) fL Immature Gran % (Auto) % Neut % (Auto) % Lymph % (Auto) % Phillips % (Auto) % Eos % (Auto) % Baso % (Auto) % Neut # (Auto) (1.40-6.50) K/uL Lymph # (Auto) (1.2-3.4) K/uL Phillips # (Auto) (0.11-0.59) K/uL Eos # (Auto) (0-0.50) K/uL Baso # (Auto) (0-0.2) K/uL Immature Gran # (Auto) (0.01-0.20) K/uL ESR 55 H (0-30) mm/hr Sodium (136-145) mmol/L Potassium (3.5-5.1) mmol/L Chloride (98-107) mmol/L Carbon Dioxide (21-32) mmol/L Anion Gap (3-11) BUN (6-23) mg/dl Creatinine (0.6-1.2) mg/dl Est Cr Clr Drug Dosing Est GFR ( Amer) ml/min Est GFR (Non-Af Amer) ml/min BUN/Creatinine Ratio (10-20) Glucose (70-99(Fasting)) mg/dl POC Glucose (70-99) mg/dl Osmolality 292 (280-300) mOsm/kg Lactate (0.4-2.0) mmol/L Calcium (8.6-10.3) mg/dl Phosphorus (2.5-4.9) mg/dl Magnesium (1.7-2.4) mg/dl Total Bilirubin (0.2-1.0) mg/dl Direct Bilirubin (0-0.2) mg/dl AST (13-39) U/L ALT (7-52) U/L Alkaline Phosphatase (34-104) U/L Troponin I High Sens (0-14) pg/ml C-Reactive Protein (0-0.5) mg/dl Total Protein (6.0-8.3) gm/dl Albumin (3.4-5.0) gm/dl Globulin (2.5-4.0) gm/dl Albumin/Globulin Ratio (0.9-2) Procalcitonin 0.12 (0-0.5) ng/ml SARS-CoV-2, RNA, NAAT (NEGATIVE) 06/01/23 06/01/23 06/01/23 Range/Units 11:06 11:06 11:06 WBC 14.32 H (4.8-10.8) K/ul RBC 2.61 L (4.20-5.40) M/uL Hgb 8.1 L (12.0-16.0) g/dl Hct 23.5 L (37.0-47.0) % MCV 90.0 (80.0-100.0) fL MCH 31.0 (25.0-34.0) pg MCHC 34.5 (32.0-36.0) g/dL RDW Std Deviation 51.5 H (36.4-46.3) fL RDW Coeff of Donny 15.8 H (11.5-14.5) % Plt Count 324 (130-400) K/uL MPV 11.4 (9.4-12.4) fL Immature Gran % (Auto) 1.0 % Neut % (Auto) 92.5 % Lymph % (Auto) 3.3 % Phillips % (Auto) 3.1 % Eos % (Auto) 0.0 % Baso % (Auto) 0.1 % Neut # (Auto) 13.26 H (1.40-6.50) K/uL Lymph # (Auto) 0.47 L (1.2-3.4) K/uL Phillips # (Auto) 0.44 (0.11-0.59) K/uL Eos # (Auto) 0.00 (0-0.50) K/uL Baso # (Auto) 0.01 (0-0.2) K/uL Immature Gran # (Auto) 0.14 (0.01-0.20) K/uL ESR (0-30) mm/hr Sodium 124 L (136-145) mmol/L Potassium 5.9 H (3.5-5.1) mmol/L Chloride 97 L (98-107) mmol/L Carbon Dioxide 21 (21-32) mmol/L Anion Gap 6 (3-11) BUN 41 H (6-23) mg/dl Creatinine 1.58 H (0.6-1.2) mg/dl Est Cr Clr Drug Dosing Not Reportable Est GFR ( Amer) 37.8 ml/min Est GFR (Non-Af Amer) 32.6 ml/min BUN/Creatinine Ratio 25.9 H (10-20) Glucose 375 H* (70-99(Fasting)) mg/dl POC Glucose (70-99) mg/dl Osmolality (280-300) mOsm/kg Lactate 1.3 (0.4-2.0) mmol/L Calcium 8.2 L (8.6-10.3) mg/dl Phosphorus (2.5-4.9) mg/dl Magnesium 1.2 L (1.7-2.4) mg/dl Total Bilirubin 0.3 (0.2-1.0) mg/dl Direct Bilirubin 0.1 (0-0.2) mg/dl AST 11 L (13-39) U/L ALT 19 (7-52) U/L Alkaline Phosphatase 104 (34-104) U/L Troponin I High Sens 9.0 (0-14) pg/ml C-Reactive Protein (0-0.5) mg/dl Total Protein 6.1 (6.0-8.3) gm/dl Albumin 3.0 L (3.4-5.0) gm/dl Globulin (2.5-4.0) gm/dl Albumin/Globulin Ratio (0.9-2) Procalcitonin (0-0.5) ng/ml SARS-CoV-2, RNA, NAAT (NEGATIVE) Diagnostic Findings ABDOMEN AND PELVIS CT WITH IV CONTRAST CT DOSE: 1076.59 mGy.cm HISTORY: Follow-up study in a patient with history of reported cubitus ulcer large sacral ulcer, need to monitor depth/severity TECHNIQUE: Multiaxial CT images of the abdomen and pelvis were performed following the IV administration of 93 cc of Optiray, A dose lowering technique was utilized adhering to the principles of ALARA. COMPARISON STUDY: None FINDINGS: Partially imaged catheter is in the SVC. Coronary artery calcifications. Mild right hemidiaphragmatic elevation. Subsegmental bibasilar atelectasis. No pneumatosis or pneumoperitoneum. Unremarkable spleen. Mildly atrophic pancreas with a few scattered coarse calcifications. 5 mm cystic focus of the pancreatic tail is likely benign. Thickening of the adrenal glands suggestive of hyperplasia. Nonspecific wall thickening of the gallbladder. Trace pericholecystic edema. Patent portal vein. Nonspecific mild cortical thinning of the kidneys. No hydronephrosis. Subcentimeter hypodensity of the inferior pole right kidney, too small to characterize. The urinary bladder is distended measuring up to 16 cm. Findings suggestive of fibroid uterus. Atherosclerosis of the aorta without aneurysm. No pathologically enlarged lymph nodes are seen. Tiny hiatal hernia suggested. Small bowel air-fluid levels within the mid to lower abdomen measuring up to 3 cm. Colonic diverticulosis. Moderate fecal retention of the cecum and ascending colon. Possible soft tissue prominence versus stool within the cecum. Narrowing of the terminal ileum. Normal appendix. Midline dependent sacral ulcer measures up to approximately 2 cm in length. The depth is approximately 7 mm from the dorsal cortex of the sacrum. No osseous erosion is identified. Superior endplate compression at L4 is favored to be chronic. Lumbar levoscoliosis. IMPRESSION: 1. Small sacral decubitus ulcer. No fluid collection or evidence of osteomyelitis. 2. Nonspecific gallbladder wall thickening. Findings could be correlated with right upper quadrant ultrasound. 3. Soft tissue fullness of the cecum may be secondary to intraluminal stool. Findings could be correlated with colonoscopy to exclude an underlying lesion. 4. Borderline dilated small bowel loops are likely physiologic. 5. Colonic diverticulosis. 6. Additional findings as above. (1) Decubitus ulcer Laterality: unspecified laterality Pressure injury location: buttock Pressure injury stage: unspecified pressure injury stage Qualified Code(s): L89.309 - Pressure ulcer of unspecified buttock, unspecified stage
[2023-06-01 17:11] LABS: Potassium Random Urine 27.3 mmol/L
[2023-06-01] MEDS: MAGNESIUM SULFATE / D5W 1 GM/100 ML BAG IV SCH ×3 (17:30→21:41)
[2023-06-01 17:35] LABS: Appearance Urine Clear (Clear); Bacteria Urine Automated Negative (Negative); Bilirubin Urine Negative (Negative); Blood Urine Negative (Negative); Color Urine Yellow; Glucose Urine UA 3+ (Negative); Ketones Urine Negative (Negative); Leukocyte Esterase Urine Negative (Negative); Nitrite Urine Negative (Negative); Protein Urine Trace (Negative); RBC Urine Automated 0-4 /hpf (0-4); Specific Gravity Urine 1.029 (1.000-1.030); Urobilinogen Urine Negative (Negative); pH Urine 5.5 (4.5-7.5)
[2023-06-01] MEDS ORDERED: ONDANSETRON INJ 2 MG/ML 2 ML VIAL ONE (18:13)
[2023-06-01] MEDS: ONDANSETRON INJ 2 MG/ML 2 ML VIAL IV PRN (18:20)
[2023-06-01] MEDS ORDERED: LACTATED RINGER'S 1,000 ML IV SCH (20:15)
[2023-06-01 20:32] LABS: Magnesium 1.9 mg/dl (1.7-2.4)
[2023-06-01 20:40] LABS: BUN Creatinine Ratio 25.2 (10-20); Calcium 8.1 mg/dl (8.6-10.3); Creatinine Clr Calc Pharmacy 38.2 ml/min; Est GFR (African American) 42.6 ml/min; Est GFR (Non-African American) 36.8 ml/min
[2023-06-01] MEDS ORDERED: INSULIN ASPART PER UNIT CHARGE SC SCH (21:00)
[2023-06-01] MEDS: LANTUS PER UNIT CHARGE SC SCH (21:40)
[2023-06-01] MEDS: carvediloL 12.5 MG TAB PO SCH (21:41)
[2023-06-01] MEDS: amLODIPine BESYLATE 5 MG TAB PO SCH (21:41)
[2023-06-01] MEDS: SODIUM CHLORIDE 0.9% 1000ML 1,000 ML IV SCH (21:41)
[2023-06-01] MEDS: PANTOprazole 40 MG in SYRINGE 0 ML IV SCH (21:45)
[2023-06-02] MEDS: MAGNESIUM SULFATE / D5W 1 GM/100 ML BAG IV SCH ×2 (00:52→01:58)
[2023-06-02] MEDS: metroNIDAZOLE 500 MG/100 ML BAG IV SCH ×4 (00:53→22:58)
[2023-06-02] MEDS ORDERED: CEFEPIME 2,000 MG/20 ML VIAL ONE (01:49)
[2023-06-02] MEDS: INSULIN ASPART PER UNIT CHARGE SC SCH ×6 (01:58→20:42)
[2023-06-02] MEDS: CEFEPIME 2,000 MG in SYRINGE 0 ML IV SCH ×2 (01:59→14:22)
[2023-06-02] MEDS: HEPARIN SOD 5,000 UNIT/0.5 ML VIAL SQ SCH ×3 (03:27→20:25)
[2023-06-02] MEDS: ATORVASTATIN 10 MG TAB PO SCH ×2 (03:27→20:20)
[2023-06-02] MEDS ORDERED: Nursing to Pharmacy Communication SCH (03:30)
[2023-06-02 05:44] LABS: Albumin Level 2.4 gm/dl (3.4-5.0); BUN Creatinine Ratio 25.4 (10-20); Bilirubin,Total 0.3 mg/dl (0.2-1.0); Calcium 7.9 mg/dl (8.6-10.3); Creatinine Clr Calc Pharmacy 44.7 ml/min; Est GFR (African American) 51.6 ml/min; Est GFR (Non-African American) 44.5 ml/min; Globulin 2.5 gm/dl (2.5-4.0); Magnesium 2.1 mg/dl (1.7-2.4); Potassium 4.8 mmol/L (3.5-5.1); Total Protein 4.9 gm/dl (6.0-8.3)
[2023-06-02 05:56] LABS: Prothrombin Time 11.1 Seconds (9.0-12.0)
[2023-06-02 06:01] LABS: Ferritin 265.6 ng/ml (8-388)
[2023-06-02 06:04] LABS: Folate (Folic Acid),Ser orPlas 3.46 ng/ml (>5.38)
[2023-06-02 06:05] LABS: Vitamin B12 > 1500 pg/ml (180-914)
[2023-06-02] MEDS: LEVOTHYROXINE SODIUM 150 MCG TABLET PO SCH (07:54)
[2023-06-02] MEDS: carvediloL 12.5 MG TAB PO SCH ×2 (09:21→20:20)
[2023-06-02] MEDS: CYANOCOBALAMIN (B-12) 500 MCG TABLET PO SCH (09:24)
[2023-06-02] MEDS: amLODIPine BESYLATE 5 MG TAB PO SCH ×2 (09:25→20:21)
[2023-06-02 09:47] LABS: Hematocrit (blood only) 20.2 % (37.0-47.0); Mean Corpuscular Hemoglobin 31.3 pg (25.0-34.0); Mean Corpuscular Hgb Conc 34.7 g/dL (32.0-36.0); Mean Corpuscular Volume 90.2 fL (80.0-100.0); Mean Platelet Volume 11.5 fL (9.4-12.4); Platelet Count 290 K/uL (130-400); RDW Coefficient of Variation 15.6 % (11.5-14.5); RDW Standard Deviation 50.2 fL (36.4-46.3); Red Blood Count 2.24 M/uL (4.20-5.40); White Blood Count 13.36 K/ul (4.8-10.8)
[2023-06-02] MEDS ORDERED: NovoLIN-R INSULIN PER UNIT CHARGE ONE (09:47)
[2023-06-02 09:48] LABS: Echinocytes 1+; Immature Granulocytes # (auto) 0.26 K/uL (0.01-0.20); Immature Granulocytes % (auto) 1.9 %; Lymphocytes # (auto) 0.73 K/uL (1.2-3.4); Lymphocytes % (auto) 5.5 %; Monocytes # (auto) 0.73 K/uL (0.11-0.59); Monocytes % (auto) 5.5 %; Neutrophils # (auto) 11.64 K/uL (1.40-6.50); Neutrophils % (auto) 87.1 %; Ovalocytes 1+; Reticulocytes # 0.07 10^6/uL (0.02-0.10)
[2023-06-02] MEDS: SODIUM CHLORIDE 0.9% 1000ML 1,000 ML IV SCH (10:48)
[2023-06-02] MEDS: PANTOprazole 40 MG in SYRINGE 0 ML IV SCH (12:18)
[2023-06-02] MEDS: DAPTOmycin 225 MG in SYRINGE 0 ML IV SCH (14:22)
--- NOTE | 2023-06-02 16:37 | Surgery Progress Note ---
Date of Service June 02, 2023 Assessment & Plan (1) Decubitus ulcer: Plan: 73 year-old female with worsening sacral decubitus ulcer presented to ED with abnormal labs and worsening wound from [facility]. There is no evidence of abscess or fluid collection on CT scan or examination. There is some fibrinous tissue at wound base but no necrotic tissue. This can likely be treated with dressings +/- chemical debridement. No surgical debridement needed at this time. Would recommend antibiotics, await cultures, and wound care nurse evaluation. Needs air mattress and frequent repositioning turning every 2 hours to off load. Will follow along periperally , please call with any questions/concerns. Admission and Anticipated Discharge Date Admission Date: June 01, 2023 Subjective feeling better today not having much pain at site of wound no fevers or chills Physical Exam 2 Constitutional: WD/WN, vitals as above cooperative and comfortable; no acute distress and not ill appearing Gastrointestinal (Abdomen): Sacral wound: 4 cm x 4 cm wound with fibrinous tissue present and some healthy granulation tissue seen at wound base. no signs of surrounding cellulitis or fluctuance to suggest abscess. no tunneling on exam. Psychiatric: Orientation: alert and oriented x 3 Results & Data Vital Signs (Past 12 Hours) Vital Signs Temp Pulse Pulse Resp BP BP Pulse Ox 06/02/23 14:30 62 06/02/23 10:30 36.8 C 73 18 125/61 99 06/02/23 10:30 69 06/02/23 09:00 69 19 06/02/23 09:00 135/71 06/02/23 08:00 63 16 06/02/23 08:00 124/68 06/02/23 07:00 53 L 11 L 06/02/23 07:00 109/62 06/02/23 06:00 52 L 14 06/02/23 06:00 111/61 06/02/23 05:00 53 L 12 06/02/23 05:00 106/63 06/02/23 08:25 36.8 C 67 20 124/68 99 06/02/23 05:00 54 L 15 111/61 94 06/02/23 05:16 52 L O2 Del Method 06/02/23 14:30 06/02/23 10:30 Room Air 06/02/23 10:30 06/02/23 09:00 06/02/23 09:00 06/02/23 08:00 06/02/23 08:00 06/02/23 07:00 06/02/23 07:00 06/02/23 06:00 06/02/23 06:00 06/02/23 05:00 06/02/23 05:00 06/02/23 08:25 Room Air 06/02/23 05:00 06/02/23 05:16 Laboratory Results 06/02/23 06/02/23 06/02/23 Range/Units 16:30 11:31 07:48 WBC (4.8-10.8) K/ul RBC (4.20-5.40) M/uL Hgb (12.0-16.0) g/dl Hct (37.0-47.0) % MCV (80.0-100.0) fL MCH (25.0-34.0) pg MCHC (32.0-36.0) g/dL RDW Std Deviation (36.4-46.3) fL RDW Coeff of Donny (11.5-14.5) % Plt Count (130-400) K/uL MPV (9.4-12.4) fL Immature Gran % (Auto) % Neut % (Auto) % Lymph % (Auto) % Richardson % (Auto) % Eos % (Auto) % Baso % (Auto) % Reticulocyte % (Auto) (0.5-2.0) % Neut # (Auto) (1.40-6.50) K/uL Lymph # (Auto) (1.2-3.4) K/uL Richardson # (Auto) (0.11-0.59) K/uL Eos # (Auto) (0-0.50) K/uL Baso # (Auto) (0-0.2) K/uL Reticulocyte # (0.02-0.10) 10^6/uL Immature Gran # (Auto) (0.01-0.20) K/uL Ovalocytes Echinocytes PT (9.0-12.0) Seconds INR (0.9-1.1) Sodium (136-145) mmol/L Potassium (3.5-5.1) mmol/L Chloride (98-107) mmol/L Carbon Dioxide (21-32) mmol/L Anion Gap (3-11) BUN (6-23) mg/dl Creatinine (0.6-1.2) mg/dl Est Cr Clr Drug Dosing ml/min Est GFR ( Amer) ml/min Est GFR (Non-Af Amer) ml/min BUN/Creatinine Ratio (10-20) Glucose (70-99(Fasting)) mg/dl POC Glucose 149 H 147 H 120 H (70-99) mg/dl Calcium (8.6-10.3) mg/dl Phosphorus (2.5-4.9) mg/dl Magnesium (1.7-2.4) mg/dl Iron (35-150) mcg/dl TIBC (250-450) mcg/dl Unsaturated IBC (155-355) mcg/dl Transferrin % Sat (15-50) % Ferritin (8-388) ng/ml Total Bilirubin (0.2-1.0) mg/dl AST (13-39) U/L ALT (7-52) U/L Alkaline Phosphatase (34-104) U/L Total Protein (6.0-8.3) gm/dl Albumin (3.4-5.0) gm/dl Globulin (2.5-4.0) gm/dl Albumin/Globulin Ratio (0.9-2) Vitamin B12 (180-914) pg/ml Folate (>5.38) ng/ml Urine Color Urine Appearance (Clear) Urine pH (4.5-7.5) Ur Specific [place] (1.000-1.030) Urine Protein (Negative) Urine Glucose (UA) (Negative) Urine Ketones (Negative) Urine Blood (Negative) Urine Nitrite (Negative) Urine Bilirubin (Negative) Urine Urobilinogen (Negative) Ur Leukocyte Esterase (Negative) Urine WBC (Auto) (0-5) /hpf Urine RBC (Auto) (0-4) /hpf U Hyaline Cast (Auto) (0-5) /lpf U Epithel Cells (Auto) (0-5) /lpf Urine Bacteria (Auto) (Negative) Urine Osmolality (500-800) mOsm/kg Ur Random Sodium mmol/L Ur Random Potassium mmol/L Nasal Screen MRSA (PCR) (Negative) Hepatitis C Ab (EIA) 06/02/23 06/02/23 06/02/23 Range/Units 04:37 04:37 04:37 WBC (4.8-10.8) K/ul RBC (4.20-5.40) M/uL Hgb (12.0-16.0) g/dl Hct (37.0-47.0) % MCV (80.0-100.0) fL MCH (25.0-34.0) pg MCHC (32.0-36.0) g/dL RDW Std Deviation (36.4-46.3) fL RDW Coeff of Donny (11.5-14.5) % Plt Count (130-400) K/uL MPV (9.4-12.4) fL Immature Gran % (Auto) % Neut % (Auto) % Lymph % (Auto) % Richardson % (Auto) % Eos % (Auto) % Baso % (Auto) % Reticulocyte % (Auto) (0.5-2.0) % Neut # (Auto) (1.40-6.50) K/uL Lymph # (Auto) (1.2-3.4) K/uL Richardson # (Auto) (0.11-0.59) K/uL Eos # (Auto) (0-0.50) K/uL Baso # (Auto) (0-0.2) K/uL Reticulocyte # (0.02-0.10) 10^6/uL Immature Gran # (Auto) (0.01-0.20) K/uL Ovalocytes Echinocytes PT 11.1 (9.0-12.0) Seconds INR 1.0 (0.9-1.1) Sodium 130 L (136-145) mmol/L Potassium 4.8 (3.5-5.1) mmol/L Chloride 106 (98-107) mmol/L Carbon Dioxide 21 (21-32) mmol/L Anion Gap 3 (3-11) BUN 31 H (6-23) mg/dl Creatinine 1.22 H (0.6-1.2) mg/dl Est Cr Clr Drug Dosing 44.7 ml/min Est GFR ( Amer) 51.6 ml/min Est GFR (Non-Af Amer) 44.5 ml/min BUN/Creatinine Ratio 25.4 H (10-20) Glucose 126 H (70-99(Fasting)) mg/dl POC Glucose (70-99) mg/dl Calcium 7.9 L (8.6-10.3) mg/dl Phosphorus (2.5-4.9) mg/dl Magnesium 2.1 (1.7-2.4) mg/dl Iron 51 (35-150) mcg/dl TIBC 161 L (250-450) mcg/dl Unsaturated IBC 110 L (155-355) mcg/dl Transferrin % Sat 32 (15-50) % Ferritin 265.6 (8-388) ng/ml Total Bilirubin 0.3 (0.2-1.0) mg/dl AST 11 L (13-39) U/L ALT 16 (7-52) U/L Alkaline Phosphatase 73 (34-104) U/L Total Protein 4.9 L (6.0-8.3) gm/dl Albumin 2.4 L (3.4-5.0) gm/dl Globulin 2.5 (2.5-4.0) gm/dl Albumin/Globulin Ratio 1.0 (0.9-2) Vitamin B12 > 1500 H (180-914) pg/ml Folate 3.46 L (>5.38) ng/ml Urine Color Urine Appearance (Clear) Urine pH (4.5-7.5) Ur Specific [place] (1.000-1.030) Urine Protein (Negative) Urine Glucose (UA) (Negative) Urine Ketones (Negative) Urine Blood (Negative) Urine Nitrite (Negative) Urine Bilirubin (Negative) Urine Urobilinogen (Negative) Ur Leukocyte Esterase (Negative) Urine WBC (Auto) (0-5) /hpf Urine RBC (Auto) (0-4) /hpf U Hyaline Cast (Auto) (0-5) /lpf U Epithel Cells (Auto) (0-5) /lpf Urine Bacteria (Auto) (Negative) Urine Osmolality (500-800) mOsm/kg Ur Random Sodium mmol/L Ur Random Potassium mmol/L Nasal Screen MRSA (PCR) (Negative) Hepatitis C Ab (EIA) 06/02/23 06/02/23 06/02/23 Range/Units 04:37 03:35 01:57 WBC 13.36 H (4.8-10.8) K/ul RBC 2.24 L (4.20-5.40) M/uL Hgb 7.0 L (12.0-16.0) g/dl Hct 20.2 L* (37.0-47.0) % MCV 90.2 (80.0-100.0) fL MCH 31.3 (25.0-34.0) pg MCHC 34.7 (32.0-36.0) g/dL RDW Std Deviation 50.2 H (36.4-46.3) fL RDW Coeff of Donny 15.6 H (11.5-14.5) % Plt Count 290 (130-400) K/uL MPV 11.5 (9.4-12.4) fL Immature Gran % (Auto) 1.9 % Neut % (Auto) 87.1 % Lymph % (Auto) 5.5 % Richardson % (Auto) 5.5 % Eos % (Auto) 0.0 % Baso % (Auto) 0.0 % Reticulocyte % (Auto) 3.0 H (0.5-2.0) % Neut # (Auto) 11.64 H (1.40-6.50) K/uL Lymph # (Auto) 0.73 L (1.2-3.4) K/uL Richardson # (Auto) 0.73 H (0.11-0.59) K/uL Eos # (Auto) 0.00 (0-0.50) K/uL Baso # (Auto) 0.00 (0-0.2) K/uL Reticulocyte # 0.07 (0.02-0.10) 10^6/uL Immature Gran # (Auto) 0.26 H (0.01-0.20) K/uL Ovalocytes 1+ Echinocytes 1+ PT (9.0-12.0) Seconds INR (0.9-1.1) Sodium (136-145) mmol/L Potassium (3.5-5.1) mmol/L Chloride (98-107) mmol/L Carbon Dioxide (21-32) mmol/L Anion Gap (3-11) BUN (6-23) mg/dl Creatinine (0.6-1.2) mg/dl Est Cr Clr Drug Dosing ml/min Est GFR ( Amer) ml/min Est GFR (Non-Af Amer) ml/min BUN/Creatinine Ratio (10-20) Glucose (70-99(Fasting)) mg/dl POC Glucose 120 H 116 H (70-99) mg/dl Calcium (8.6-10.3) mg/dl Phosphorus (2.5-4.9) mg/dl Magnesium (1.7-2.4) mg/dl Iron (35-150) mcg/dl TIBC (250-450) mcg/dl Unsaturated IBC (155-355) mcg/dl Transferrin % Sat (15-50) % Ferritin (8-388) ng/ml Total Bilirubin (0.2-1.0) mg/dl AST (13-39) U/L ALT (7-52) U/L Alkaline Phosphatase (34-104) U/L Total Protein (6.0-8.3) gm/dl Albumin (3.4-5.0) gm/dl Globulin (2.5-4.0) gm/dl Albumin/Globulin Ratio (0.9-2) Vitamin B12 (180-914) pg/ml Folate (>5.38) ng/ml Urine Color Urine Appearance (Clear) Urine pH (4.5-7.5) Ur Specific [place] (1.000-1.030) Urine Protein (Negative) Urine Glucose (UA) (Negative) Urine Ketones (Negative) Urine Blood (Negative) Urine Nitrite (Negative) Urine Bilirubin (Negative) Urine Urobilinogen (Negative) Ur Leukocyte Esterase (Negative) Urine WBC (Auto) (0-5) /hpf Urine RBC (Auto) (0-4) /hpf U Hyaline Cast (Auto) (0-5) /lpf U Epithel Cells (Auto) (0-5) /lpf Urine Bacteria (Auto) (Negative) Urine Osmolality (500-800) mOsm/kg Ur Random Sodium mmol/L Ur Random Potassium mmol/L Nasal Screen MRSA (PCR) (Negative) Hepatitis C Ab (EIA) 06/01/23 06/01/23 06/01/23 Range/Units 22:00 21:40 19:58 WBC (4.8-10.8) K/ul RBC (4.20-5.40) M/uL Hgb (12.0-16.0) g/dl Hct (37.0-47.0) % MCV (80.0-100.0) fL MCH (25.0-34.0) pg MCHC (32.0-36.0) g/dL RDW Std Deviation (36.4-46.3) fL RDW Coeff of Donny (11.5-14.5) % Plt Count (130-400) K/uL MPV (9.4-12.4) fL Immature Gran % (Auto) % Neut % (Auto) % Lymph % (Auto) % Richardson % (Auto) % Eos % (Auto) % Baso % (Auto) % Reticulocyte % (Auto) (0.5-2.0) % Neut # (Auto) (1.40-6.50) K/uL Lymph # (Auto) (1.2-3.4) K/uL Richardson # (Auto) (0.11-0.59) K/uL Eos # (Auto) (0-0.50) K/uL Baso # (Auto) (0-0.2) K/uL Reticulocyte # (0.02-0.10) 10^6/uL Immature Gran # (Auto) (0.01-0.20) K/uL Ovalocytes Echinocytes PT (9.0-12.0) Seconds INR (0.9-1.1) Sodium 128 L (136-145) mmol/L Potassium 5.0 (3.5-5.1) mmol/L Chloride 102 (98-107) mmol/L Carbon Dioxide 21 (21-32) mmol/L Anion Gap 5 (3-11) BUN 36 H (6-23) mg/dl Creatinine 1.43 H (0.6-1.2) mg/dl Est Cr Clr Drug Dosing 38.2 ml/min Est GFR ( Amer) 42.6 ml/min Est GFR (Non-Af Amer) 36.8 ml/min BUN/Creatinine Ratio 25.2 H (10-20) Glucose 138 H (70-99(Fasting)) mg/dl POC Glucose 109 H (70-99) mg/dl Calcium 8.1 L (8.6-10.3) mg/dl Phosphorus (2.5-4.9) mg/dl Magnesium (1.7-2.4) mg/dl Iron (35-150) mcg/dl TIBC (250-450) mcg/dl Unsaturated IBC (155-355) mcg/dl Transferrin % Sat (15-50) % Ferritin (8-388) ng/ml Total Bilirubin (0.2-1.0) mg/dl AST (13-39) U/L ALT (7-52) U/L Alkaline Phosphatase (34-104) U/L Total Protein (6.0-8.3) gm/dl Albumin (3.4-5.0) gm/dl Globulin (2.5-4.0) gm/dl Albumin/Globulin Ratio (0.9-2) Vitamin B12 (180-914) pg/ml Folate (>5.38) ng/ml Urine Color Urine Appearance (Clear) Urine pH (4.5-7.5) Ur Specific [place] (1.000-1.030) Urine Protein (Negative) Urine Glucose (UA) (Negative) Urine Ketones (Negative) Urine Blood (Negative) Urine Nitrite (Negative) Urine Bilirubin (Negative) Urine Urobilinogen (Negative) Ur Leukocyte Esterase (Negative) Urine WBC (Auto) (0-5) /hpf Urine RBC (Auto) (0-4) /hpf U Hyaline Cast (Auto) (0-5) /lpf U Epithel Cells (Auto) (0-5) /lpf Urine Bacteria (Auto) (Negative) Urine Osmolality (500-800) mOsm/kg Ur Random Sodium mmol/L Ur Random Potassium mmol/L Nasal Screen MRSA (PCR) Negative (Negative) Hepatitis C Ab (EIA) 06/01/23 06/01/23 06/01/23 Range/Units 19:58 17:06 16:27 WBC (4.8-10.8) K/ul RBC (4.20-5.40) M/uL Hgb (12.0-16.0) g/dl Hct (37.0-47.0) % MCV (80.0-100.0) fL MCH (25.0-34.0) pg MCHC (32.0-36.0) g/dL RDW Std Deviation (36.4-46.3) fL RDW Coeff of Donny (11.5-14.5) % Plt Count (130-400) K/uL MPV (9.4-12.4) fL Immature Gran % (Auto) % Neut % (Auto) % Lymph % (Auto) % Richardson % (Auto) % Eos % (Auto) % Baso % (Auto) % Reticulocyte % (Auto) (0.5-2.0) % Neut # (Auto) (1.40-6.50) K/uL Lymph # (Auto) (1.2-3.4) K/uL Richardson # (Auto) (0.11-0.59) K/uL Eos # (Auto) (0-0.50) K/uL Baso # (Auto) (0-0.2) K/uL Reticulocyte # (0.02-0.10) 10^6/uL Immature Gran # (Auto) (0.01-0.20) K/uL Ovalocytes Echinocytes PT (9.0-12.0) Seconds INR (0.9-1.1) Sodium (136-145) mmol/L Potassium (3.5-5.1) mmol/L Chloride (98-107) mmol/L Carbon Dioxide (21-32) mmol/L Anion Gap (3-11) BUN (6-23) mg/dl Creatinine (0.6-1.2) mg/dl Est Cr Clr Drug Dosing ml/min Est GFR ( Amer) ml/min Est GFR (Non-Af Amer) ml/min BUN/Creatinine Ratio (10-20) Glucose (70-99(Fasting)) mg/dl POC Glucose 216 H (70-99) mg/dl Calcium (8.6-10.3) mg/dl Phosphorus 2.0 L (2.5-4.9) mg/dl Magnesium 1.9 (1.7-2.4) mg/dl Iron (35-150) mcg/dl TIBC (250-450) mcg/dl Unsaturated IBC (155-355) mcg/dl Transferrin % Sat (15-50) % Ferritin (8-388) ng/ml Total Bilirubin (0.2-1.0) mg/dl AST (13-39) U/L ALT (7-52) U/L Alkaline Phosphatase (34-104) U/L Total Protein (6.0-8.3) gm/dl Albumin (3.4-5.0) gm/dl Globulin (2.5-4.0) gm/dl Albumin/Globulin Ratio (0.9-2) Vitamin B12 (180-914) pg/ml Folate (>5.38) ng/ml Urine Color Yellow Urine Appearance Clear (Clear) Urine pH 5.5 (4.5-7.5) Ur Specific [place] 1.029 (1.000-1.030) Urine Protein Trace H (Negative) Urine Glucose (UA) 3+ H (Negative) Urine Ketones Negative (Negative) Urine Blood Negative (Negative) Urine Nitrite Negative (Negative) Urine Bilirubin Negative (Negative) Urine Urobilinogen Negative (Negative) Ur Leukocyte Esterase Negative (Negative) Urine WBC (Auto) 1-5 (0-5) /hpf Urine RBC (Auto) 0-4 (0-4) /hpf U Hyaline Cast (Auto) 1-5 (0-5) /lpf U Epithel Cells (Auto) 5-10 H (0-5) /lpf Urine Bacteria (Auto) Negative (Negative) Urine Osmolality (500-800) mOsm/kg Ur Random Sodium mmol/L Ur Random Potassium mmol/L Nasal Screen MRSA (PCR) (Negative) Hepatitis C Ab (EIA) 06/01/23 06/01/23 06/01/23 Range/Units 16:27 16:27 11:06 WBC (4.8-10.8) K/ul RBC (4.20-5.40) M/uL Hgb (12.0-16.0) g/dl Hct (37.0-47.0) % MCV (80.0-100.0) fL MCH (25.0-34.0) pg MCHC (32.0-36.0) g/dL RDW Std Deviation (36.4-46.3) fL RDW Coeff of Donny (11.5-14.5) % Plt Count (130-400) K/uL MPV (9.4-12.4) fL Immature Gran % (Auto) % Neut % (Auto) % Lymph % (Auto) % Richardson % (Auto) % Eos % (Auto) % Baso % (Auto) % Reticulocyte % (Auto) (0.5-2.0) % Neut # (Auto) (1.40-6.50) K/uL Lymph # (Auto) (1.2-3.4) K/uL Richardson # (Auto) (0.11-0.59) K/uL Eos # (Auto) (0-0.50) K/uL Baso # (Auto) (0-0.2) K/uL Reticulocyte # (0.02-0.10) 10^6/uL Immature Gran # (Auto) (0.01-0.20) K/uL Ovalocytes Echinocytes PT (9.0-12.0) Seconds INR (0.9-1.1) Sodium (136-145) mmol/L Potassium (3.5-5.1) mmol/L Chloride (98-107) mmol/L Carbon Dioxide (21-32) mmol/L Anion Gap (3-11) BUN (6-23) mg/dl Creatinine (0.6-1.2) mg/dl Est Cr Clr Drug Dosing ml/min Est GFR ( Amer) ml/min Est GFR (Non-Af Amer) ml/min BUN/Creatinine Ratio (10-20) Glucose (70-99(Fasting)) mg/dl POC Glucose (70-99) mg/dl Calcium (8.6-10.3) mg/dl Phosphorus (2.5-4.9) mg/dl Magnesium (1.7-2.4) mg/dl Iron (35-150) mcg/dl TIBC (250-450) mcg/dl Unsaturated IBC (155-355) mcg/dl Transferrin % Sat (15-50) % Ferritin (8-388) ng/ml Total Bilirubin (0.2-1.0) mg/dl AST (13-39) U/L ALT (7-52) U/L Alkaline Phosphatase (34-104) U/L Total Protein (6.0-8.3) gm/dl Albumin (3.4-5.0) gm/dl Globulin (2.5-4.0) gm/dl Albumin/Globulin Ratio (0.9-2) Vitamin B12 (180-914) pg/ml Folate (>5.38) ng/ml Urine Color Urine Appearance (Clear) Urine pH (4.5-7.5) Ur Specific [place] (1.000-1.030) Urine Protein (Negative) Urine Glucose (UA) (Negative) Urine Ketones (Negative) Urine Blood (Negative) Urine Nitrite (Negative) Urine Bilirubin (Negative) Urine Urobilinogen (Negative) Ur Leukocyte Esterase (Negative) Urine WBC (Auto) (0-5) /hpf Urine RBC (Auto) (0-4) /hpf U Hyaline Cast (Auto) (0-5) /lpf U Epithel Cells (Auto) (0-5) /lpf Urine Bacteria (Auto) (Negative) Urine Osmolality 398 L (500-800) mOsm/kg Ur Random Sodium 24 mmol/L Ur Random Potassium 27.3 mmol/L Nasal Screen MRSA (PCR) (Negative) Hepatitis C Ab (EIA) Pending (1) Decubitus ulcer Laterality: unspecified laterality Pressure injury location: buttock Pressure injury stage: unspecified pressure injury stage Qualified Code(s): L89.309 - Pressure ulcer of unspecified buttock, unspecified stage
[2023-06-02] MEDS: LANTUS PER UNIT CHARGE SC SCH (20:39)
--- NOTE | 2023-06-02 22:08 | Hospitalist Progress Note ---
Date of Service June 02, 2023 Assessment & Plan (1) Hyperkalemia: Plan: -Admit to the PCU on tele -Currently stable -Found to be hyperkalemic at 5.9 in the ED -Now improved -Likely multifactorial including mild PAM and continued KCL ER supplementation at [facility] with last dose this am -No acute ECG changes in the ED -Will hold potassium chloride for now. -Continue to monitor on tele -SQ heparin for DVT PPX -DMII diet, No free water due to hyponatremia -AM CBC, CMP, Mag (2) Hyponatremia: Plan: -Corrected sodium of 128 in the ED, was noted to be similar per labs from [facility] Yesterday -Patient is asymptomatic -Sodium continues to improved. -Unsure of the exact etiology at this time, per her MAR from [facility] she has not had a dose of Torsemide since 05/26. She appears slightly dehydrated on exam and her appetite has been poor since starting chemotherapy so malnutrition and dehydration are likely contributing. She is high risk for SIADH with he r active cancer, recent chemotherapy, sacral ulcer, and possible UTI -Hold diuretics and further IV fluids for now -Free water restriction added to diet order and explained to nursing staff and patient. She can have liquids with electrolytes -Monitor daily renal function and electrolytes (3) Sacral decubitus ulcer: Plan: -Patient with large and deep sacral decubitus ulcer which has been present for the past month -Ulcer is draining pus on exam -Culture results from [facility] as per HPI -Had been on Augmentin and Flagyl -Will continue with Cefepime, Daptomycin, and flagyl for now -Will obtain repeat wound culture, obtain CT of the abd/pelvis w/IV con, and consult general surgery for evaluation -Follow blood and wound cultures -Turn and position q2h (4) PAM (acute kidney injury): Plan: -Cr today is 1.58, baseline appears near 1.1-1.2 -Likely due to dehydration, infections, and possibly chemotherapy -Obtaining CT of the abd/pelvis w/IV con as we need to obtain more details regarding her sacral ulcer, presence of any abscess, and bone involvement -Avoid Nephrotoxic agents -Hold Telmisartan for now -Monitor daily renal function and electrolytes (5) UTI (urinary tract infection): Plan: -Patient was being treated for possible UTI at [facility], no UA or urine cultures available at this time -Will repeat UA and urine culture on admission -Continue Cefepime for now (6) Hypomagnesemia: Plan: -Mag at 1.2 today -Has been a chronic issue for her -Likely due to malnutrition, diuretic use, and recent bout of diarrheal illness -Waiting for repeat labs to replete as we need to stabilize her potassium first -Continue to monitor on tele -Monitor am renal function and electrolytes (7) Breast cancer: Plan: -S/P left total mastectomy in January of this year -Follows with Dr. Escoto -Had been on weekly Paclitaxel and trastuzumab therapy but has been on a 3 week break due to clinical decline -Patient will stop Paclitaxel but continue trastuzumab per her discussions with Dr. Escoto yesterday -If she has a prolonged admission would consult Dr. Escoto to follow to help with coordination of care on discharge as next treatment is scheduled for next (8) HTN (hypertension): Plan: -Stable -Can continue amlodipine and carvedilol but will hold Telmisartan and torsemide for now (9) Hypothyroidism: Plan: -Continue levothyroxine (10) Diabetes type 2, controlled: Plan: -Noted to be hyperglycemic at 375 on arrival -Per Jan, metformin had been held since last week due to Diarrhea, patient was still on Jardiance -S/P 5 units IV insulin for hyperkalemia on admission -Will hold oral agents -Monitor BSg q4h until glucose and electrolytes are stable -Start 5 units lantus BID and CF of 50 q4h for now -Pharmacy glycemic consult placed -DMII diet (11) Dyslipidemia: Plan: -Continue statin Plan The patient was discussed with Dr. Carpio at the time of the admission Admission and Anticipated Discharge Date Admission Date: June 01, 2023 Subjective 73 yo female reports no new symptoms. Review of Systems Review of Systems: All systems reviewed & are unremarkable except as noted in HPI & below Physical Exam Physical Exam: General: In no acute distress, stated age, chronically ill-appearing but non- toxic HEENT: Normocephalic, atraumatic, no scleral icterus, pupils around round, symmetrical, and reactive to light, moist mucus membranes, trachea midline, no thyromegaly Chest/Pulm: No respiratory distress, symmetrical chest expansion, clear breath sounds throughout Cardiac: RRR, no murmurs noted Abdomen: Negative for ascites and bruising, normoactive bowel sounds, soft, non-tender to palpation throughout Musculoskeletal: Symmetrical and without signs of acute trauma, upper and lower extremities with full ROM, no atrophy, spasticity, or flaccidity Extremities: Radial, dorsalis pedis, and posterior tibial pulses are intact and symmetrical, no edema noted in the BL LE's Skin: patient with an approximately 4cm x 4 cm circular sacral ulcer with surrounding erythema and pustulous drainage Neuro: Alert and oriented to person, place, month, year, and president, no focal defects, no tremors noted Psych: No acute distress, calm and cooperative during the exam Results & Data Results & Data Vital Signs (Past 12 Hours) Vital Signs Temp Pulse Pulse Resp BP Pulse Ox O2 Del Method 06/02/23 19:45 Room Air 06/02/23 19:00 37.3 C 68 16 103/64 97 Room Air 06/02/23 16:00 36.6 C 60 18 121/73 97 Room Air 06/02/23 14:30 62 06/02/23 10:30 36.8 C 73 18 125/61 99 Room Air 06/02/23 10:30 69 PG Care Time/CCT Total # of Minutes Spent Total Time Spent with Patient: Total time spent is greater than 50% in coordination of care (as documented) at patient's floor/unit and/or counseling patient: Coding Level of Care Code 84857 SUB INP/OBS CARE 2/35MIN Diagnoses Hyperkalemia E87.5 Hyponatremia E87.1 Sacral decubitus ulcer L89.159 PAM (acute kidney injury) N17.9 UTI (urinary tract infection) N39.0 Hypomagnesemia E83.42 Breast cancer C50.919 HTN (hypertension) I10 Hypothyroidism E03.9 Diabetes type 2, controlled E11.9 Dyslipidemia E78.5
[2023-06-03] MEDS: CEFEPIME 2,000 MG in SYRINGE 0 ML IV SCH ×2 (02:01→13:37)
[2023-06-03] MEDS: LEVOTHYROXINE SODIUM 150 MCG TABLET PO SCH (04:40)
[2023-06-03 08:26] LABS: Eosinophils # (auto) 0.11 K/uL (0-0.50); Hemoglobin 7.1 g/dl (12.0-16.0); Immature Granulocytes # (auto) 0.06 K/uL (0.01-0.20); Immature Granulocytes % (auto) 0.5 %; Lymphocytes # (auto) 0.91 K/uL (1.2-3.4); Lymphocytes % (auto) 8.3 %; Mean Corpuscular Hemoglobin 30.2 pg (25.0-34.0); Mean Corpuscular Hgb Conc 33.8 g/dL (32.0-36.0); Mean Corpuscular Volume 89.4 fL (80.0-100.0); Mean Platelet Volume 11.2 fL (9.4-12.4); Monocytes # (auto) 0.79 K/uL (0.11-0.59); Monocytes % (auto) 7.2 %; Neutrophils # (auto) 9.09 K/uL (1.40-6.50); Platelet Count 273 K/uL (130-400); RDW Coefficient of Variation 16.1 % (11.5-14.5); RDW Standard Deviation 51.9 fL (36.4-46.3); Red Blood Count 2.35 M/uL (4.20-5.40); White Blood Count 10.96 K/ul (4.8-10.8)
[2023-06-03] MEDS: LANTUS PER UNIT CHARGE SC SCH (08:43)
[2023-06-03] MEDS: INSULIN ASPART PER UNIT CHARGE SC SCH ×4 (08:43→20:27)
[2023-06-03] MEDS: metroNIDAZOLE 500 MG/100 ML BAG IV SCH ×2 (08:43→15:16)
[2023-06-03] MEDS: CYANOCOBALAMIN (B-12) 500 MCG TABLET PO SCH (08:44)
[2023-06-03] MEDS: amLODIPine BESYLATE 5 MG TAB PO SCH ×2 (08:44→20:25)
[2023-06-03] MEDS: carvediloL 12.5 MG TAB PO SCH ×2 (08:44→20:26)
[2023-06-03 08:49] LABS: Albumin Globulin Ratio 0.9 (0.9-2); Albumin Level 2.3 gm/dl (3.4-5.0); Bilirubin,Total 0.3 mg/dl (0.2-1.0); Creatinine Clr Calc Pharmacy 44.7 ml/min; Est GFR (African American) 50.6 ml/min; Est GFR (Non-African American) 43.7 ml/min; Globulin 2.5 gm/dl (2.5-4.0); Magnesium 1.8 mg/dl (1.7-2.4); Phosphorus 2.3 mg/dl (2.5-4.9); Potassium 4.8 mmol/L (3.5-5.1); Prothrombin Time 10.9 Seconds (9.0-12.0); Total Protein 4.8 gm/dl (6.0-8.3)
[2023-06-03 09:01] LABS: Echinocytes 1+
[2023-06-03] MEDS: HEPARIN SOD 5,000 UNIT/0.5 ML VIAL SQ SCH ×2 (09:30→20:26)
[2023-06-03] MEDS: DAPTOmycin 225 MG in SYRINGE 0 ML IV SCH (13:37)
[2023-06-03] MEDS: PANTOprazole 40 MG in SYRINGE 0 ML IV SCH (13:50)
--- NOTE | 2023-06-03 13:54 | Pharmacy Report ---
Pharmacy Glycemic Short Note 2 - Date of Service June 03, 2023 - Glycemic Short BSG Results (Last 24 hours): 06/02/23 06/02/23 06/03/23 16:30 20:34 07:21 Glucose POC Glucose 149 H 128 H 143 H 06/03/23 06/03/23 07:41 11:12 Glucose 128 H POC Glucose 119 H OUTPATIENT ANTIDIABETIC REGIMEN: * Metformin 1g PO BID * Jardiance 10mg PO daily HbA1c: 5.8% (01/25/23) ASSESSMENT: 06/03/23: * BSGs well-controlled yesterday, w/ fasting BSG of 143 mg/dL this morning * No basal given yesterday, 10 units of bolus only * Will restart conservative basal dose (~0.1 unit/kg) * Do not anticipate any other changes to glycemic regimen 06/01/23: * 73 yo female, resident of [facility], H left invasive ductal carcinoma S/P left mastectomy currently on Paclitaxel and trastuzumab therapy, AFib, hyperthyroidism S/P thyroid ablation, hypothyroidism, HTN, and DM II who presented to the [facility] ED via EMS on 06/01 due to abnormal outpatient labs. * BSG 375mg/dl on admission, given 5 units of regular insulin IV, BSG down to 300mg/dl after, starting NovoLog and Lantus in ED. * Pt is maintained on oral antidiabetic agents as an outpatient * Oral agents are not recommended for inpatient use d/t drug interactions, changing PO intake, and difficulty titrating for acute hyper/hypoglycemia. ADA recommends re-initiating outpatient oral agents 1-2 days prior to discharge if/when appropriate if they were held on admission. * Will hold oral agents for admission and utilize SQ basal bolus insulin regimen which is the recommended regimen for inpatient glycemic control. * Will initiate weight based insulin dosing for insulin [place] patient and titrate based on BSG trends. PLAN FOR INPATIENT GLYCEMIC CONTROL: * Hold outpatient oral diabetes medications * Basal insulin * Lantus 8 units SC daily (~0.1 unit/kg) * Bolus insulin * NovoLog per scale ACHS or Q6hrs while NPO * Goal Range: Low 110 mg/dL - High 140 mg/dL * Correction Factor: 30 mg/dL/unit * Nutritional / Prandial insulin per carb ratio of 1 unit per 10 grams CHO consumed
[2023-06-03] MEDS: HEPARIN 100 UNIT/ML 5ML FLUSH FLUSH PRN (16:45)
[2023-06-03] MEDS: ATORVASTATIN 10 MG TAB PO SCH (20:26)
--- NOTE | 2023-06-03 22:45 | Hospitalist Progress Note ---
Date of Service June 03, 2023 Assessment & Plan (1) Hyperkalemia: Plan: -Admit to the PCU on tele -Currently stable -Found to be hyperkalemic at 5.9 in the ED -Now improved -Likely multifactorial including mild PAM and continued KCL ER supplementation at [facility] with last dose this am -No acute ECG changes in the ED -Will hold potassium chloride for now. -Continue to monitor on tele -SQ heparin for DVT PPX -DMII diet, No free water due to hyponatremia - (2) Hyponatremia: Plan: Improved. -Corrected sodium of 128 in the ED, was noted to be similar per labs from [facility] Yesterday -Patient is asymptomatic -Sodium continues to improved. -Unsure of the exact etiology at this time, per her MAR from [facility] she has not had a dose of Torsemide since 05/26. She appears slightly dehydrated on exam and her appetite has been poor since starting chemotherapy so malnutrition and dehydration are likely contributing. She is high risk for SIADH with he r active cancer, recent chemotherapy, sacral ulcer, and possible UTI -Hold diuretics and further IV fluids for now -Free water restriction added to diet order and explained to nursing staff and patient. She can have liquids with electrolytes -Monitor daily renal function and electrolytes (3) Sacral decubitus ulcer: Plan: -Patient with large and deep sacral decubitus ulcer which has been present for the past month -Ulcer is draining pus on exam -Culture results from [facility] as per HPI -Had been on Augmentin and Flagyl -Will continue with Cefepime, Daptomycin, and flagyl for now -Will obtain repeat wound culture, obtain CT of the abd/pelvis w/IV con, and consult general surgery for evaluation -Follow blood and wound cultures -Turn and position q2h Awaiting input from wound care. (4) PAM (acute kidney injury): Plan: -Cr today is 1.58, baseline appears near 1.1-1.2 -Likely due to dehydration, infections, and possibly chemotherapy -Obtaining CT of the abd/pelvis w/IV con as we need to obtain more details regarding her sacral ulcer, presence of any abscess, and bone involvement -Avoid Nephrotoxic agents -Hold Telmisartan for now -Monitor daily renal function and electrolytes (5) UTI (urinary tract infection): Plan: -Patient was being treated for possible UTI at [facility], no UA or urine cultures available at this time -Will repeat UA and urine culture on admission -Continue Cefepime for now (6) Hypomagnesemia: Plan: -Mag at 1.2 today -Has been a chronic issue for her -Likely due to malnutrition, diuretic use, and recent bout of diarrheal illness -Waiting for repeat labs to replete as we need to stabilize her potassium first -Continue to monitor on tele -Monitor am renal function and electrolytes (7) Breast cancer: Plan: -S/P left total mastectomy in January of this year -Follows with Dr. Escoto -Had been on weekly Paclitaxel and trastuzumab therapy but has been on a 3 week break due to clinical decline -Patient will stop Paclitaxel but continue trastuzumab per her discussions with Dr. Escoto yesterday -If she has a prolonged admission would consult Dr. Escoto to follow to help with coordination of care on discharge as next treatment is scheduled for (8) HTN (hypertension): Plan: -Stable -Can continue amlodipine and carvedilol but will hold Telmisartan and torsemide for now (9) Hypothyroidism: Plan: -Continue levothyroxine (10) Diabetes type 2, controlled: Plan: -Noted to be hyperglycemic at 375 on arrival -Per Jan, metformin had been held since last week due to Diarrhea, patient was still on Jardiance -S/P 5 units IV insulin for hyperkalemia on admission -Will hold oral agents -Monitor BSg q4h until glucose and electrolytes are stable -Start 5 units lantus BID and CF of 50 q4h for now -Pharmacy glycemic consult placed -DMII diet (11) Dyslipidemia: Plan: -Continue statin Admission and Anticipated Discharge Date Admission Date: June 01, 2023 Subjective 73 yo female reports no new symptoms. Review of Systems Review of Systems: All systems reviewed & are unremarkable except as noted in HPI & below Physical Exam Physical Exam: General: In no acute distress, stated age, chronically ill-appearing but non- toxic HEENT: Normocephalic, atraumatic, no scleral icterus, pupils around round, symmetrical, and reactive to light, moist mucus membranes, trachea midline, no thyromegaly Chest/Pulm: No respiratory distress, symmetrical chest expansion, clear breath sounds throughout Cardiac: RRR, no murmurs noted Abdomen: Negative for ascites and bruising, normoactive bowel sounds, soft, non-tender to palpation throughout Musculoskeletal: Symmetrical and without signs of acute trauma, upper and lower extremities with full ROM, no atrophy, spasticity, or flaccidity Extremities: Radial, dorsalis pedis, and posterior tibial pulses are intact and symmetrical, no edema noted in the BL LE's Neuro: Alert and oriented to person, place, month, year, and president, no focal defects, no tremors noted Psych: No acute distress, calm and cooperative during the exam Results & Data Results & Data Vital Signs (Past 12 Hours) Vital Signs Temp Pulse Pulse Resp BP Pulse Ox O2 Del Method 06/03/23 22:35 36.8 C 73 16 111/66 97 Room Air 06/03/23 20:30 Room Air 06/03/23 19:00 36.7 C 70 18 117/66 98 Room Air 06/03/23 15:49 37.4 C 70 18 122/68 98 Room Air 06/03/23 14:00 66 06/03/23 12:00 37.0 C 71 20 119/71 99 Room Air PG Care Time/CCT Total # of Minutes Spent Total Time Spent with Patient: Total time spent is greater than 50% in coordination of care (as documented) at patient's floor/unit and/or counseling patient: Coding Level of Care Code 45781 SUB INP/OBS CARE 2/35MIN Diagnoses Hyperkalemia E87.5 Hyponatremia E87.1 Sacral decubitus ulcer L89.159 PAM (acute kidney injury) N17.9 UTI (urinary tract infection) N39.0 Hypomagnesemia E83.42 Breast cancer C50.919 HTN (hypertension) I10 Hypothyroidism E03.9 Diabetes type 2, controlled E11.9 Dyslipidemia E78.5
[2023-06-04] MEDS: metroNIDAZOLE 500 MG/100 ML BAG IV SCH ×3 (00:06→15:18)
[2023-06-04] MEDS: CEFEPIME 2,000 MG in SYRINGE 0 ML IV SCH ×2 (01:06→13:00)
[2023-06-04] MEDS: LEVOTHYROXINE SODIUM 150 MCG TABLET PO SCH (05:51)
[2023-06-04 06:38] LABS: Hematocrit (blood only) 19.8 % (37.0-47.0); Hemoglobin 6.7 g/dl (12.0-16.0); Mean Corpuscular Hemoglobin 30.7 pg (25.0-34.0); Mean Corpuscular Hgb Conc 33.8 g/dL (32.0-36.0); Mean Corpuscular Volume 90.8 fL (80.0-100.0); Mean Platelet Volume 11.4 fL (9.4-12.4); Platelet Count 231 K/uL (130-400); RDW Coefficient of Variation 16.6 % (11.5-14.5); RDW Standard Deviation 54.8 fL (36.4-46.3); Red Blood Count 2.18 M/uL (4.20-5.40); White Blood Count 11.44 K/ul (4.8-10.8)
[2023-06-04 06:50] LABS: Albumin Level 2.2 gm/dl (3.4-5.0); BUN Creatinine Ratio 31.2 (10-20); Bilirubin,Total 0.3 mg/dl (0.2-1.0); Calcium 8.3 mg/dl (8.6-10.3); Creatinine Clr Calc Pharmacy 44.2 ml/min; Est GFR (African American) 50.1 ml/min; Est GFR (Non-African American) 43.2 ml/min; Globulin 2.2 gm/dl (2.5-4.0); Magnesium 1.6 mg/dl (1.7-2.4); Potassium 4.6 mmol/L (3.5-5.1); Total Protein 4.4 gm/dl (6.0-8.3)
[2023-06-04 07:10] LABS: Basophils # (auto) 0.01 K/uL (0-0.2); Basophils % (auto) 0.1 %; Echinocytes 1+; Eosinophils % (auto) 1.7 %; Immature Granulocytes # (auto) 0.08 K/uL (0.01-0.20); Immature Granulocytes % (auto) 0.7 %; Lymphocytes # (auto) 0.59 K/uL (1.2-3.4); Lymphocytes % (auto) 5.2 %; Monocytes # (auto) 0.68 K/uL (0.11-0.59); Monocytes % (auto) 5.9 %; Neutrophils # (auto) 9.88 K/uL (1.40-6.50); Neutrophils % (auto) 86.4 %
[2023-06-04] MEDS: CYANOCOBALAMIN (B-12) 500 MCG TABLET PO SCH (08:13)
[2023-06-04] MEDS: HEPARIN SOD 5,000 UNIT/0.5 ML VIAL SQ SCH ×2 (08:14→19:51)
[2023-06-04] MEDS: amLODIPine BESYLATE 5 MG TAB PO SCH ×2 (08:14→19:51)
[2023-06-04] MEDS: carvediloL 12.5 MG TAB PO SCH ×2 (08:14→19:50)
[2023-06-04] MEDS: LANTUS PER UNIT CHARGE SC SCH (08:22)
[2023-06-04] MEDS: INSULIN ASPART PER UNIT CHARGE SC SCH ×4 (08:22→21:09)
[2023-06-04] MEDS: PANTOprazole 40 MG in SYRINGE 0 ML IV SCH (11:56)
--- NOTE | 2023-06-04 12:20 | Hospitalist Progress Note ---
Date of Service June 04, 2023 Assessment & Plan (1) Hyperkalemia: Plan: -Admit to the PCU on tele -Currently stable -Found to be hyperkalemic at 5.9 in the ED -Now improved -Likely multifactorial including mild PAM and continued KCL ER supplementation at [facility] with last dose this am -No acute ECG changes in the ED -Will hold potassium chloride for now. -Continue to monitor on tele -SQ heparin for DVT PPX -DMII diet, No free water due to hyponatremia Anemia: will trasfuse 1 unit of PRBC> - (2) Hyponatremia: Plan: Improved. -Corrected sodium of 128 in the ED, was noted to be similar per labs from [facility] Yesterday -Patient is asymptomatic -Sodium continues to improved. -Unsure of the exact etiology at this time, per her MAR from [facility] she has not had a dose of Torsemide since 05/26. She appears slightly dehydrated on exam and her appetite has been poor since starting chemotherapy so malnutrition and dehydration are likely contributing. She is high risk for SIADH with he r active cancer, recent chemotherapy, sacral ulcer, and possible UTI -Hold diuretics and further IV fluids for now -Free water restriction added to diet order and explained to nursing staff and patient. She can have liquids with electrolytes -Monitor daily renal function and electrolytes (3) Sacral decubitus ulcer: Plan: -Patient with large and deep sacral decubitus ulcer which has been present for the past month -Ulcer is draining pus on exam -Culture results from [facility] as per HPI -Had been on Augmentin and Flagyl -Will continue with Cefepime, Daptomycin, and flagyl for now -Will obtain repeat wound culture, obtain CT of the abd/pelvis w/IV con, and consult general surgery for evaluation -Follow blood and wound cultures -Turn and position q2h Awaiting input from wound care. (4) PAM (acute kidney injury): Plan: -Cr today is 1.58, baseline appears near 1.1-1.2 -Likely due to dehydration, infections, and possibly chemotherapy -Obtaining CT of the abd/pelvis w/IV con as we need to obtain more details regarding her sacral ulcer, presence of any abscess, and bone involvement -Avoid Nephrotoxic agents -Hold Telmisartan for now -Monitor daily renal function and electrolytes (5) UTI (urinary tract infection): Plan: -Patient was being treated for possible UTI at [facility], no UA or urine cultures available at this time -Will repeat UA and urine culture on admission -Continue Cefepime for now (6) Hypomagnesemia: Plan: -Mag at 1.2 today -Has been a chronic issue for her -Likely due to malnutrition, diuretic use, and recent bout of diarrheal illness -Waiting for repeat labs to replete as we need to stabilize her potassium first -Continue to monitor on tele -Monitor am renal function and electrolytes (7) Breast cancer: Plan: -S/P left total mastectomy in January of this year -Follows with Dr. Escoto -Had been on weekly Paclitaxel and trastuzumab therapy but has been on a 3 week break due to clinical decline -Patient will stop Paclitaxel but continue trastuzumab per her discussions with Dr. Escoto yesterday -If she has a prolonged admission would consult Dr. Escoto to follow to help with coordination of care on discharge as next treatment is scheduled for next (8) HTN (hypertension): Plan: -Stable -Can continue amlodipine and carvedilol but will hold Telmisartan and torsemide for now (9) Hypothyroidism: Plan: -Continue levothyroxine (10) Diabetes type 2, controlled: Plan: -Noted to be hyperglycemic at 375 on arrival -[facility] metformin had been held since last week due to Diarrhea, patient was still on Jardiance -S/P 5 units IV insulin for hyperkalemia on admission -Will hold oral agents -Monitor BSg q4h until glucose and electrolytes are stable -Start 5 units lantus BID and CF of 50 q4h for now -Pharmacy glycemic consult placed -DMII diet (11) Dyslipidemia: Plan: -Continue statin Admission and Anticipated Discharge Date Admission Date: June 01, 2023 Subjective 73 yo female reports no new symptoms. Review of Systems Review of Systems: All systems reviewed & are unremarkable except as noted in HPI & below Physical Exam Physical Exam: General: In no acute distress, stated age, chronically ill-appearing but non- toxic HEENT: Normocephalic, atraumatic, no scleral icterus, pupils around round, symmetrical, and reactive to light, moist mucus membranes, trachea midline, no thyromegaly Chest/Pulm: No respiratory distress, symmetrical chest expansion, clear breath sounds throughout Cardiac: RRR, no murmurs noted Abdomen: Negative for ascites and bruising, normoactive bowel sounds, soft, non-tender to palpation throughout Musculoskeletal: Symmetrical and without signs of acute trauma, upper and lower extremities with full ROM, no atrophy, spasticity, or flaccidity Extremities: Radial, dorsalis pedis, and posterior tibial pulses are intact and symmetrical, no edema noted in the BL LE's Neuro: Alert and oriented to person, place, month, year, and president, no focal defects, no tremors noted Psych: No acute distress, calm and cooperative during the exam Results & Data Results & Data Vital Signs (Past 12 Hours) Vital Signs Temp Pulse Pulse Pulse Resp BP Pulse Ox 06/04/23 11:16 37 C 68 16 108/63 99 06/04/23 08:09 37 C 67 16 107/66 98 06/04/23 07:15 63 06/04/23 03:14 36.9 C 69 16 110/66 97 O2 Del Method 06/04/23 11:16 Room Air 06/04/23 08:09 Room Air 06/04/23 07:15 06/04/23 03:14 Room Air PG Care Time/CCT Total # of Minutes Spent Total Time Spent with Patient: Total time spent is greater than 50% in coordination of care (as documented) at patient's floor/unit and/or counseling patient: Coding Level of Care Code 81662 SUB INP/OBS CARE 2/35MIN Diagnoses Hyperkalemia E87.5 Hyponatremia E87.1 Sacral decubitus ulcer L89.159 PAM (acute kidney injury) N17.9 UTI (urinary tract infection) N39.0 Hypomagnesemia E83.42 Breast cancer C50.919 HTN (hypertension) I10 Hypothyroidism E03.9 Diabetes type 2, controlled E11.9 Dyslipidemia E78.5
[2023-06-04] MEDS: DAPTOmycin 225 MG in SYRINGE 0 ML IV SCH (13:00)
[2023-06-04] MEDS ORDERED: SODIUM CHLORIDE 0.9% 250 ML IV PRN (14:04)
[2023-06-04] MEDS: ATORVASTATIN 10 MG TAB PO SCH (19:50)
[2023-06-05] MEDS: metroNIDAZOLE 500 MG/100 ML BAG IV SCH ×3 (00:17→15:27)
[2023-06-05] MEDS: CEFEPIME 2,000 MG in SYRINGE 0 ML IV SCH ×2 (01:26→13:40)
[2023-06-05] MEDS: LEVOTHYROXINE SODIUM 150 MCG TABLET PO SCH (06:13)
[2023-06-05 07:38] LABS: Hematocrit (blood only) 23.1 % (37.0-47.0); Hemoglobin 7.9 g/dl (12.0-16.0); Mean Corpuscular Hemoglobin 30.4 pg (25.0-34.0); Mean Corpuscular Hgb Conc 34.2 g/dL (32.0-36.0); Mean Corpuscular Volume 88.8 fL (80.0-100.0); Mean Platelet Volume 11.5 fL (9.4-12.4); Platelet Count 208 K/uL (130-400); RDW Coefficient of Variation 16.4 % (11.5-14.5); RDW Standard Deviation 52.3 fL (36.4-46.3); White Blood Count 10.63 K/ul (4.8-10.8)
[2023-06-05 07:53] LABS: BUN Creatinine Ratio 39.8 (10-20); Calcium 8.4 mg/dl (8.6-10.3); Creatinine Clr Calc Pharmacy 54.2 ml/min; Est GFR (African American) 63.3 ml/min; Est GFR (Non-African American) 54.6 ml/min
[2023-06-05] MEDS: carvediloL 12.5 MG TAB PO SCH ×2 (08:31→20:52)
[2023-06-05] MEDS: CYANOCOBALAMIN (B-12) 500 MCG TABLET PO SCH (08:32)
[2023-06-05] MEDS: HEPARIN SOD 5,000 UNIT/0.5 ML VIAL SQ SCH ×2 (08:32→20:52)
[2023-06-05] MEDS: amLODIPine BESYLATE 5 MG TAB PO SCH ×2 (08:32→20:52)
[2023-06-05] MEDS: INSULIN ASPART PER UNIT CHARGE SC SCH ×4 (08:45→20:49)
[2023-06-05] MEDS: LANTUS PER UNIT CHARGE SC SCH (08:45)
[2023-06-05] MEDS: PANTOprazole 40 MG in SYRINGE 0 ML IV SCH (11:46)
[2023-06-05] MEDS: DAPTOmycin 225 MG in SYRINGE 0 ML IV SCH (13:40)
[2023-06-05] MEDS: ATORVASTATIN 10 MG TAB PO SCH (20:52)
--- NOTE | 2023-06-05 23:05 | Hospitalist Progress Note ---
Date of Service June 05, 2023 Assessment & Plan (1) Hyperkalemia: Plan: -Admit to the PCU on tele -Currently stable -Found to be hyperkalemic at 5.9 in the ED -Now improved -Likely multifactorial including mild PAM and continued KCL ER supplementation at [facility] with last dose this am -No acute ECG changes in the ED -Will hold potassium chloride for now. -Continue to monitor on tele -SQ heparin for DVT PPX -DMII diet, No free water due to hyponatremia Anemia: will trasfuse 1 unit of PRBC on 06/04 Hemoglobin appears stable on 06/05 will monitor (2) Hyponatremia: Plan: Improved. -Corrected sodium of 128 in the ED, was noted to be similar per labs from [facility] Yesterday -Patient is asymptomatic -Sodium continues to improved. -Unsure of the exact etiology at this time, per her MAR from [facility] she has not had a dose of Torsemide since 05/26. She appears slightly dehydrated on exam and her appetite has been poor since starting chemotherapy so malnutrition and dehydration are likely contributing. She is high risk for SIADH with he r active cancer, recent chemotherapy, sacral ulcer, and possible UTI -Hold diuretics and further IV fluids for now -Free water restriction added to diet order and explained to nursing staff and patient. She can have liquids with electrolytes -Monitor daily renal function and electrolytes (3) Sacral decubitus ulcer: Plan: -Patient with large and deep sacral decubitus ulcer which has been present for the past month -Ulcer is draining pus on exam -Culture results from [facility] as per HPI -Had been on Augmentin and Flagyl -Will continue with Cefepime, Daptomycin, and flagyl for now -Will obtain repeat wound culture, obtain CT of the abd/pelvis w/IV con, and consult general surgery for evaluation -Follow blood and wound cultures -Turn and position q2h Appreciate input from wound care. Patient does not want to try a wound vac given increased fall risk and needing to carry around pump. Patient will continue conservative wound care management at this time. (4) PAM (acute kidney injury): Plan: -Cr today is 1.58, baseline appears near 1.1-1.2 -Likely due to dehydration, infections, and possibly chemotherapy -Obtaining CT of the abd/pelvis w/IV con as we need to obtain more details regarding her sacral ulcer, presence of any abscess, and bone involvement -Avoid Nephrotoxic agents -Hold Telmisartan for now -Monitor daily renal function and electrolytes (5) UTI (urinary tract infection): Plan: -Patient was being treated for possible UTI at [facility], no UA or urine cultures available at this time -Will repeat UA and urine culture on admission -Continue Cefepime for now (6) Hypomagnesemia: Plan: -Mag at 1.2 today -Has been a chronic issue for her -Likely due to malnutrition, diuretic use, and recent bout of diarrheal illness -Waiting for repeat labs to replete as we need to stabilize her potassium first -Continue to monitor on tele -Monitor am renal function and electrolytes (7) Breast cancer: Plan: -S/P left total mastectomy in January of this year -Follows with Dr. Escoto -Had been on weekly Paclitaxel and trastuzumab therapy but has been on a 3 week break due to clinical decline -Patient will stop Paclitaxel but continue trastuzumab per her discussions with Dr. Escoto yesterday -If she has a prolonged admission would consult Dr. Escoto to follow to help with coordination of care on discharge as next treatment is scheduled for next (8) HTN (hypertension): Plan: -Stable -Can continue amlodipine and carvedilol but will hold Telmisartan and torsemide for now (9) Hypothyroidism: Plan: -Continue levothyroxine (10) Diabetes type 2, controlled: Plan: -Noted to be hyperglycemic at 375 on arrival -[facility] metformin had been held since last week due to Diarrhea, patient was still on Jardiance -S/P 5 units IV insulin for hyperkalemia on admission -Will hold oral agents -Monitor BSg q4h until glucose and electrolytes are stable -Start 5 units lantus BID and CF of 50 q4h for now -Pharmacy glycemic consult placed -DMII diet (11) Dyslipidemia: Plan: -Continue statin Admission and Anticipated Discharge Date Admission Date: June 01, 2023 Review of Systems Review of Systems: All systems reviewed & are unremarkable except as noted in HPI & below Physical Exam Physical Exam: General: In no acute distress, stated age, chronically ill-appearing but non- toxic HEENT: Normocephalic, atraumatic, no scleral icterus, pupils around round, symmetrical, and reactive to light, moist mucus membranes, trachea midline, no thyromegaly Chest/Pulm: No respiratory distress, symmetrical chest expansion, clear breath sounds throughout Cardiac: RRR, no murmurs noted Abdomen: Negative for ascites and bruising, normoactive bowel sounds, soft, non-tender to palpation throughout Musculoskeletal: Symmetrical and without signs of acute trauma, upper and lower extremities with full ROM, no atrophy, spasticity, or flaccidity Extremities: Radial, dorsalis pedis, and posterior tibial pulses are intact and symmetrical, no edema noted in the BL LE's Neuro: Alert and oriented to person, place, month, year, and president, no focal defects, no tremors noted Psych: No acute distress, calm and cooperative during the exam Results & Data Results & Data Vital Signs (Past 12 Hours) Vital Signs Temp Pulse Pulse Pulse Resp BP Pulse Ox 06/05/23 22:47 36.6 C 69 18 133/74 98 06/05/23 20:00 06/05/23 19:40 36.7 C 72 18 124/76 99 06/05/23 16:00 65 06/05/23 15:45 36.5 C 66 16 116/75 99 06/05/23 11:44 37.0 C 79 16 148/64 H 97 O2 Del Method 06/05/23 22:47 Room Air 06/05/23 20:00 Room Air 06/05/23 19:40 Room Air 06/05/23 16:00 06/05/23 15:45 Room Air 06/05/23 11:44 Room Air PG Care Time/CCT Total # of Minutes Spent Total Time Spent with Patient: Total time spent is greater than 50% in coordination of care (as documented) at patient's floor/unit and/or counseling patient: Coding Level of Care Code 70878 SUB INP/OBS CARE 2/35MIN Diagnoses Hyperkalemia E87.5 Hyponatremia E87.1 Sacral decubitus ulcer L89.159 PAM (acute kidney injury) N17.9 UTI (urinary tract infection) N39.0 Hypomagnesemia E83.42 Breast cancer C50.919 HTN (hypertension) I10 Hypothyroidism E03.9 Diabetes type 2, controlled E11.9 Dyslipidemia E78.5
[2023-06-06] MEDS: metroNIDAZOLE 500 MG/100 ML BAG IV SCH ×4 (00:13→22:55)
[2023-06-06] MEDS: CEFEPIME 2,000 MG in SYRINGE 0 ML IV SCH ×2 (01:51→14:52)
[2023-06-06] MEDS: LEVOTHYROXINE SODIUM 150 MCG TABLET PO SCH (06:17)
[2023-06-06 07:23] LABS: Hematocrit (blood only) 23.2 % (37.0-47.0); Hemoglobin 7.9 g/dl (12.0-16.0); Mean Corpuscular Hemoglobin 30.4 pg (25.0-34.0); Mean Corpuscular Hgb Conc 34.1 g/dL (32.0-36.0); Mean Corpuscular Volume 89.2 fL (80.0-100.0); Mean Platelet Volume 11.3 fL (9.4-12.4); Platelet Count 206 K/uL (130-400); RDW Coefficient of Variation 15.9 % (11.5-14.5); RDW Standard Deviation 51.1 fL (36.4-46.3); White Blood Count 9.34 K/ul (4.8-10.8)
[2023-06-06 07:36] LABS: BUN Creatinine Ratio 47.5 (10-20); Calcium 8.5 mg/dl (8.6-10.3); Est GFR (African American) 66.4 ml/min; Est GFR (Non-African American) 57.3 ml/min; Potassium 4.8 mmol/L (3.5-5.1)
[2023-06-06] MEDS: INSULIN ASPART PER UNIT CHARGE SC SCH ×4 (08:16→19:58)
[2023-06-06] MEDS: amLODIPine BESYLATE 5 MG TAB PO SCH ×2 (08:21→19:58)
[2023-06-06] MEDS: carvediloL 12.5 MG TAB PO SCH ×2 (08:22→19:57)
[2023-06-06] MEDS: CYANOCOBALAMIN (B-12) 500 MCG TABLET PO SCH (08:23)
[2023-06-06] MEDS: HEPARIN SOD 5,000 UNIT/0.5 ML VIAL SQ SCH ×2 (08:23→19:57)
[2023-06-06] MEDS: LANTUS PER UNIT CHARGE SC SCH (08:31)
[2023-06-06] MEDS: PANTOprazole 40 MG in SYRINGE 0 ML IV SCH (12:07)
--- NOTE | 2023-06-06 13:45 | Pharmacy Report ---
Pharmacy Glycemic Short Note 2 - Date of Service June 06, 2023 - Glycemic Short BSG Results (Last 24 hours): 06/05/23 06/05/23 06/06/23 16:15 20:13 06:47 Glucose 131 H POC Glucose 103 H 142 H 06/06/23 06/06/23 07:31 12:36 Glucose POC Glucose 136 H 151 H OUTPATIENT ANTIDIABETIC REGIMEN: * Metformin 1g PO BID * Jardiance 10mg PO daily HbA1c: 5.8% (01/25/23) ASSESSMENT: 06/06/23: * Fasting 136 mg/dL this morning, continue 8 units of basal qAM * Prandial BSGs remain within target range, will continue current regimen * Consider signing off tomorrow if BSGs remain stable 06/03/23: * BSGs well-controlled yesterday, w/ fasting BSG of 143 mg/dL this morning * No basal given yesterday, 10 units of bolus only * Will restart conservative basal dose (~0.1 unit/kg) * Do not anticipate any other changes to glycemic regimen 06/01/23: * 73 yo female, resident of [facility], [facility] left invasive ductal carcinoma S/P left mastectomy currently on Paclitaxel and trastuzumab therapy, AFib, hyperthyroidism S/P thyroid ablation, hypothyroidism, HTN, and DM II who presented to the [facility] [place] ED via EMS on 06/01 due to abnormal outpatient labs. * BSG 375mg/dl on admission, given 5 units of regular insulin IV, BSG down to 300mg/dl after, starting NovoLog and Lantus in ED. * Pt is maintained on oral antidiabetic agents as an outpatient * Oral agents are not recommended for inpatient use d/t drug interactions, changing PO intake, and difficulty titrating for acute hyper/hypoglycemia. ADA recommends re-initiating outpatient oral agents 1-2 days prior to discharge if/when appropriate if they were held on admission. * Will hold oral agents for admission and utilize SQ basal bolus insulin regimen which is the recommended regimen for inpatient glycemic control. * Will initiate weight based insulin dosing for insulin kamille patient and titrate based on BSG trends. PLAN FOR INPATIENT GLYCEMIC CONTROL: * Hold outpatient oral diabetes medications * Basal insulin * Lantus 8 units SC daily (~0.1 unit/kg) * Bolus insulin * NovoLog per scale ACHS or Q6hrs while NPO * Goal Range: Low 110 mg/dL - High 140 mg/dL * Correction Factor: 30 mg/dL/unit * Nutritional / Prandial insulin per carb ratio of 1 unit per 10 grams CHO consumed
[2023-06-06] MEDS: DAPTOmycin 225 MG in SYRINGE 0 ML IV SCH (14:50)
[2023-06-06] MEDS: ATORVASTATIN 10 MG TAB PO SCH (19:58)
--- NOTE | 2023-06-06 22:19 | Hospitalist Progress Note ---
Date of Service June 06, 2023 Assessment & Plan (1) Hyperkalemia: Plan: -Admit to the PCU on tele -Currently stable -Found to be hyperkalemic at 5.9 in the ED -Now improved -Likely multifactorial including mild PAM and continued KCL ER supplementation at [facility] with last dose this am -No acute ECG changes in the ED -Will hold potassium chloride for now. -Continue to monitor on tele -SQ heparin for DVT PPX -DMII diet, No free water due to hyponatremia Anemia: will trasfuse 1 unit of PRBC on 06/04 Hemoglobin appears stable on 06/05 will monitor Hemoglobin has been stable. (2) Hyponatremia: Plan: Improved. -Corrected sodium of 128 in the ED, was noted to be similar per labs from [facility] Yesterday -Patient is asymptomatic -Sodium continues to improved. -Unsure of the exact etiology at this time, per her MAR from [facility] she has not had a dose of Torsemide since 05/26. She appears slightly dehydrated on exam and her appetite has been poor since starting chemotherapy so malnutrition and dehydration are likely contributing. She is high risk for SIADH with he r active cancer, recent chemotherapy, sacral ulcer, and possible UTI -Hold diuretics and further IV fluids for now -Free water restriction added to diet order and explained to nursing staff and patient. She can have liquids with electrolytes -Monitor daily renal function and electrolytes (3) Sacral decubitus ulcer: Plan: -Patient with large and deep sacral decubitus ulcer which has been present for the past month -Ulcer is draining pus on exam -Culture results from [facility] as per HPI -Had been on Augmentin and Flagyl -Will continue with Cefepime, Daptomycin, and flagyl for now -Will obtain repeat wound culture, obtain CT of the abd/pelvis w/IV con, and consult general surgery for evaluation -Follow blood and wound cultures -Turn and position q2h Appreciate input from wound care. Patient does not want to try a wound vac given increased fall risk and needing to carry around pump. Patient will continue conservative wound care management at this time. (4) PAM (acute kidney injury): Plan: -Cr today is 1.58, baseline appears near 1.1-1.2 -Likely due to dehydration, infections, and possibly chemotherapy -Obtaining CT of the abd/pelvis w/IV con as we need to obtain more details regarding her sacral ulcer, presence of any abscess, and bone involvement -Avoid Nephrotoxic agents -Hold Telmisartan for now -Monitor daily renal function and electrolytes (5) UTI (urinary tract infection): Plan: -Patient was being treated for possible UTI at [facility], no UA or urine cultures available at this time -Will repeat UA and urine culture on admission -Continue Cefepime for now (6) Hypomagnesemia: Plan: -Mag at 1.2 today -Has been a chronic issue for her -Likely due to malnutrition, diuretic use, and recent bout of diarrheal illness -Waiting for repeat labs to replete as we need to stabilize her potassium first -Continue to monitor on tele -Monitor am renal function and electrolytes (7) Breast cancer: Plan: -S/P left total mastectomy in January of this year -Follows with Dr. Escoto -Had been on weekly Paclitaxel and trastuzumab therapy but has been on a 3 week break due to clinical decline -Patient will stop Paclitaxel but continue trastuzumab per her discussions with Dr. Escoto yesterday -If she has a prolonged admission would consult Dr. Escoto to follow to help with coordination of care on discharge as next treatment is scheduled for next (8) HTN (hypertension): Plan: -Stable -Can continue amlodipine and carvedilol but will hold Telmisartan and torsemide for now (9) Hypothyroidism: Plan: -Continue levothyroxine (10) Diabetes type 2, controlled: Plan: -Noted to be hyperglycemic at 375 on arrival -Per [facility] JAN, metformin had been held since last week due to Diarrhea, patient was still on Jardiance -S/P 5 units IV insulin for hyperkalemia on admission -Will hold oral agents -Monitor BSg q4h until glucose and electrolytes are stable -Start 5 units lantus BID and CF of 50 q4h for now -Pharmacy glycemic consult placed -DMII diet (11) Dyslipidemia: Plan: -Continue statin Admission and Anticipated Discharge Date Admission Date: June 01, 2023 Subjective 73 yo female reports feeling well. Patient has no new complaints. Review of Systems Review of Systems: All systems reviewed & are unremarkable except as noted in HPI & below Physical Exam Physical Exam: General: In no acute distress, stated age, chronically ill-appearing but non- toxic HEENT: Normocephalic, atraumatic, no scleral icterus, pupils around round, symmetrical, and reactive to light, moist mucus membranes, trachea midline, no thyromegaly Chest/Pulm: No respiratory distress, symmetrical chest expansion, clear breath sounds throughout Cardiac: RRR, no murmurs noted Abdomen: Negative for ascites and bruising, normoactive bowel sounds, soft, non-tender to palpation throughout Musculoskeletal: Symmetrical and without signs of acute trauma, upper and lower extremities with full ROM, no atrophy, spasticity, or flaccidity Extremities: Radial, dorsalis pedis, and posterior tibial pulses are intact and symmetrical, no edema noted in the BL LE's Neuro: Alert and oriented to person, place, month, year, and president, no focal defects, no tremors noted Psych: No acute distress, calm and cooperative during the exam Results & Data Results & Data Vital Signs (Past 12 Hours) Vital Signs Temp Pulse Pulse Pulse Resp BP Pulse Ox 06/06/23 20:00 06/06/23 19:53 36.5 C 68 18 134/76 99 06/06/23 16:34 70 06/06/23 16:00 65 06/06/23 15:10 36.7 C 63 18 110/67 100 06/06/23 11:36 36.7 C 61 19 114/67 98 O2 Del Method 06/06/23 20:00 Room Air 06/06/23 19:53 Room Air 06/06/23 16:34 06/06/23 16:00 06/06/23 15:10 Room Air 06/06/23 11:36 Room Air PG Care Time/CCT Total # of Minutes Spent Total Time Spent with Patient: Total time spent is greater than 50% in coordination of care (as documented) at patient's floor/unit and/or counseling patient: Coding Level of Care Code 32351 SUB INP/OBS CARE 2/35MIN Diagnoses Hyperkalemia E87.5 Hyponatremia E87.1 Sacral decubitus ulcer L89.159 PAM (acute kidney injury) N17.9 UTI (urinary tract infection) N39.0 Hypomagnesemia E83.42 Breast cancer C50.919 HTN (hypertension) I10 Hypothyroidism E03.9 Diabetes type 2, controlled E11.9 Dyslipidemia E78.5
[2023-06-07] MEDS: LEVOTHYROXINE SODIUM 150 MCG TABLET PO SCH (06:25)
[2023-06-07 07:14] LABS: Hematocrit (blood only) 22.1 % (37.0-47.0); Hemoglobin 7.5 g/dl (12.0-16.0); Mean Corpuscular Hgb Conc 33.9 g/dL (32.0-36.0); Mean Corpuscular Volume 91.3 fL (80.0-100.0); Mean Platelet Volume 11.4 fL (9.4-12.4); Platelet Count 212 K/uL (130-400); RDW Coefficient of Variation 17.1 % (11.5-14.5); RDW Standard Deviation 56.2 fL (36.4-46.3); Red Blood Count 2.42 M/uL (4.20-5.40)
[2023-06-07 07:35] LABS: BUN Creatinine Ratio 46.9 (10-20); C Reactive Protein 0.6 mg/dl (0-0.5); Calcium 8.4 mg/dl (8.6-10.3); Creatinine Clr Calc Pharmacy 57.9 ml/min; Est GFR (Non-African American) 59.5 ml/min; Potassium 4.7 mmol/L (3.5-5.1)
[2023-06-07] MEDS: INSULIN ASPART PER UNIT CHARGE SC SCH ×4 (08:33→19:57)
[2023-06-07] MEDS: LANTUS PER UNIT CHARGE SC SCH (08:34)
[2023-06-07] MEDS: metroNIDAZOLE 500 MG/100 ML BAG IV SCH ×3 (08:37→23:24)
[2023-06-07] MEDS: carvediloL 12.5 MG TAB PO SCH ×2 (08:38→19:51)
[2023-06-07] MEDS: amLODIPine BESYLATE 5 MG TAB PO SCH ×2 (08:38→19:51)
[2023-06-07] MEDS: CYANOCOBALAMIN (B-12) 500 MCG TABLET PO SCH (08:39)
[2023-06-07] MEDS: HEPARIN SOD 5,000 UNIT/0.5 ML VIAL SQ SCH ×2 (08:39→19:51)
[2023-06-07] MEDS: PANTOprazole 40 MG in SYRINGE 0 ML IV SCH (12:30)
[2023-06-07] MEDS: DAPTOmycin 225 MG in SYRINGE 0 ML IV SCH (15:13)
[2023-06-07] MEDS: CEFEPIME 2,000 MG in SYRINGE 0 ML IV SCH ×2 (15:13)
[2023-06-07] MEDS: ATORVASTATIN 10 MG TAB PO SCH (19:52)
--- NOTE | 2023-06-07 22:36 | Hospitalist Progress Note ---
Date of Service June 07, 2023 Assessment & Plan (1) Hyperkalemia: Plan: -Admit to the PCU on tele -Currently stable -Found to be hyperkalemic at 5.9 in the ED -Now improved -Likely multifactorial including mild PAM and continued KCL ER supplementation at [facility] with last dose this am -No acute ECG changes in the ED -Will hold potassium chloride for now. -Continue to monitor on tele -SQ heparin for DVT PPX -DMII diet, No free water due to hyponatremia Anemia: will trasfuse 1 unit of PRBC on 06/04 Hemoglobin appears stable on 06/05 will monitor Hemoglobin has been stable. (2) Hyponatremia: Plan: Improved. -Corrected sodium of 128 in the ED, was noted to be similar per labs from [facility] Yesterday -Patient is asymptomatic -Sodium continues to improved. -Unsure of the exact etiology at this time, per her MAR from [facility] she has not had a dose of Torsemide since 05/26. She appears slightly dehydrated on exam and her appetite has been poor since starting chemotherapy so malnutrition and dehydration are likely contributing. She is high risk for SIADH with he r active cancer, recent chemotherapy, sacral ulcer, and possible UTI -Hold diuretics and further IV fluids for now -Free water restriction added to diet order and explained to nursing staff and patient. She can have liquids with electrolytes -Monitor daily renal function and electrolytes (3) Sacral decubitus ulcer: Plan: Sacral decubitusStage III -Patient with large and deep sacral decubitus ulcer which has been present for the past month -Ulcer is draining pus on exam: on admission, however, no drainage noted on further exams. D/W wound care, does not appear to be infected, completed about 7 days of IV antibiotics, will hold further antibiotics. -Culture results from [facility] as per HPI -Had been on Augmentin and Flagyl -surgery reports no need for surgicasl intervention -continue wound care -Follow blood and wound cultures -Turn and position q2h Appreciate input from wound care. Patient does not want to try a wound vac given increased fall risk and needing to carry around pump. Patient will continue conservative wound care management at this time. (4) PAM (acute kidney injury): Plan: -Cr today is 1.58, baseline appears near 1.1-1.2 -Likely due to dehydration, infections, and possibly chemotherapy -Obtaining CT of the abd/pelvis w/IV con as we need to obtain more details regarding her sacral ulcer, presence of any abscess, and bone involvement : negative -Avoid Nephrotoxic agents -Hold Telmisartan for now -Monitor daily renal function and electrolytes (5) UTI (urinary tract infection): Plan: Possible sepsis in the setting of sacral decubitus and possible UTI in immunocompromised patient -Patient was being treated for possible UTI at [facility], no UA or urine cultures available at this time -Will repeat UA and urine culture on admission -will stop antibiotics on AM of 06/08 COmpleted about 7 days of inpatient antibbiotics (6) Hypomagnesemia: Plan: -improved -Has been a chronic issue for her -Likely due to malnutrition, diuretic use, and recent bout of diarrheal illness -Waiting for repeat labs to replete as we need to stabilize her potassium first -Continue to monitor on tele (7) Breast cancer: Plan: -S/P left total mastectomy in January of this year -Follows with Dr. Escoto -Had been on weekly Paclitaxel and trastuzumab therapy but has been on a 3 week break due to clinical decline -Patient will stop Paclitaxel but continue trastuzumab per her discussions with Dr. Escoto yesterday -If she has a prolonged admission would consult Dr. Escoto to follow to help with coordination of care on discharge as next treatment is scheduled for next (8) HTN (hypertension): Plan: -Stable -Can continue amlodipine and carvedilol but will hold Telmisartan and torsemide for now (9) Hypothyroidism: Plan: -Continue levothyroxine (10) Diabetes type 2, controlled: Plan: -Noted to be hyperglycemic at 375 on arrival -Per [facility] JAN, metformin had been held since last week due to Diarrhea, patient was still on Jardiance -S/P 5 units IV insulin for hyperkalemia on admission -Will hold oral agents -Monitor BSg q4h until glucose and electrolytes are stable -Start 5 units lantus BID and CF of 50 q4h for now -Pharmacy glycemic consult placed -DMII diet (11) Dyslipidemia: Plan: -Continue statin Plan Plan was to discharge back [facility] on 06/07, however patient was positive for COVID 19. Discharge held, patient is asymptomatic. Admission and Anticipated Discharge Date Admission Date: June 01, 2023 Subjective Patient reports no new symptoms. Review of Systems Review of Systems: All systems reviewed & are unremarkable except as noted in HPI & below Physical Exam Physical Exam: General:In no acute distress, stated age, chronically ill-appearing but non-toxic HEENT:Normocephalic, atraumatic, no scleral icterus, pupils around round, symmetrical, and reactive to light, moist mucus membranes, trachea midline, no thyromegaly Chest/Pulm:No respiratory distress, symmetrical chest expansion, clear breath sounds throughout Cardiac:RRR, no murmurs noted Abdomen:Negative for ascites and bruising, normoactive bowel sounds, soft, non-tender to palpation throughout Musculoskeletal:Symmetrical and without signs of acute trauma, upper and lower extremities with full ROM, no atrophy, spasticity, or flaccidity Extremities:Radial, dorsalis pedis, and posterior tibial pulses are intact and symmetrical, no edema noted in the BL LE's Neuro:Alert and oriented to person, place, month, year, and president, no focal defects, no tremors noted Psych:No acute distress, calm and cooperative during the exam Results & Data Results & Data Vital Signs (Past 12 Hours) Vital Signs Temp Pulse Pulse Pulse Resp BP Pulse Ox 06/07/23 20:00 06/07/23 19:49 36.8 C 68 18 115/69 95 06/07/23 15:49 36.7 C 68 17 132/80 97 06/07/23 16:02 68 06/07/23 15:12 99 06/07/23 10:39 60 110/64 99 O2 Del Method 06/07/23 20:00 Room Air 06/07/23 19:49 Room Air 06/07/23 15:49 Room Air 06/07/23 16:02 06/07/23 15:12 06/07/23 10:39 Room Air PG Care Time/CCT Total # of Minutes Spent Total Time Spent with Patient: Total time spent is greater than 50% in coordination of care (as documented) at patient's floor/unit and/or counseling patient: Coding Level of Care Code 23600 SUB INP/OBS CARE 2/35MIN Diagnoses Hyperkalemia E87.5 Hyponatremia E87.1 Sacral decubitus ulcer L89.159 PAM (acute kidney injury) N17.9 UTI (urinary tract infection) N39.0 Hypomagnesemia E83.42 Breast cancer C50.919 HTN (hypertension) I10 Hypothyroidism E03.9 Diabetes type 2, controlled E11.9 Dyslipidemia E78.5
[2023-06-08] MEDS: CEFEPIME 2,000 MG in SYRINGE 0 ML IV SCH (02:52)
[2023-06-08] MEDS: LEVOTHYROXINE SODIUM 150 MCG TABLET PO SCH (05:51)
--- NOTE | 2023-06-08 09:16 | Hospitalist Progress Note ---
Date of Service June 08, 2023 Assessment & Plan (1) Hyperkalemia: Plan: -Found to be hyperkalemic at 5.9 in the ED -Now improved -Likely multifactorial including mild PAM and continued KCL ER supplementation at [facility] with last dose day of admission - hypomagnesemia is improved -hyponatremia improved -Free water restriction added to diet order and explained to nursing staff and patient. She can have liquids with electrolytes Anemia: trasfused 1 unit of PRBC on 06/04 Hemoglobin appears stable on 06/05 (2) Diabetes type 2, controlled: Plan: -Noted to be hyperglycemic at 375 on arrival -Per [facility] JAN, metformin had been held since last week due to Diarrhea, patient was still on Jardiance -S/P 5 units IV insulin for hyperkalemia on admission -Will hold oral agents -Monitor BSg q4h until glucose and electrolytes are stable -Start 5 units lantus BID and CF of 50 q4h for now -Pharmacy glycemic consult placed -DMII diet (3) Sacral decubitus ulcer: Plan: Sacral decubitusStage III poa -Patient with large and deep sacral decubitus ulcer which has been present for the past month -Ulcer is draining purulnece on admission, however, no drainage noted on further exams. D/W wound care, does not appear to be infected, completed about 7 days of IV antibiotics -Culture results from [facility] as per HPI -Had been on Augmentin and Flagyl -surgery reports no need for surgical intervention -continue wound care Appreciate input from wound care. Patient does not want to try a wound vac given increased fall risk and needing to carry around pump. Patient will continue conservative wound care management at this time. (4) PAM (acute kidney injury): Plan: -Cr today is 1.58, baseline appears near 1.1-1.2 -Likely due to dehydration, infections, and possibly chemotherapy -Hold Telmisartan/Torsemide (5) UTI (urinary tract infection): Plan: Possible sepsis in the setting of sacral decubitus and possible UTI in immunocompromised patient -Patient was being treated for possible UTI at [facility], no UA or urine cultures available at this time -repeat UA and urine culture on admission -will stop antibiotics on AM of 8/3 Completed 7 days of inpatient antibiotics (6) Breast cancer: Plan: -S/P left total mastectomy in January of this year -Follows with Dr. Escoto -Had been on weekly Paclitaxel and trastuzumab therapy but has been on a 3 week break due to clinical decline -Patient will stop Paclitaxel but continue trastuzumab per her discussions with Dr. Escoto by previous provider -If she has a prolonged admission would consult Dr. Escoto to follow to help with coordination of care on discharge as next treatment is scheduled for next (7) HTN (hypertension): Plan: -Stable -Can continue amlodipine and carvedilol but will hold Telmisartan and torsemide for now Plan -SQ heparin for DVT PPX -DMII diet, No free water due to hyponatremia Plan was to [facility], however patient was positive for COVID 19. Discharge held, patient is asymptomatic. Admission and Anticipated Discharge Date Admission Date: June 01, 2023 Subjective pt is doing well, no symptoms from COVID with exception of some soft stools Physical Exam Physical Exam: Pt is awake and alert no cough or sob, lungs are clear cardiac is regular Results & Data Results & Data Vital Signs (Past 12 Hours) Vital Signs Temp Pulse Pulse Pulse Resp BP Pulse Ox 06/08/23 07:45 99.1 F 62 18 117/74 94 06/08/23 02:51 99.3 F 73 18 120/71 97 06/07/23 23:23 98.6 F 58 L 18 113/66 97 06/07/23 23:00 60 O2 Del Method 06/08/23 07:45 Room Air 06/08/23 02:51 Room Air 06/07/23 23:23 Room Air 06/07/23 23:00 PG Care Time/CCT Total # of Minutes Spent Total Time Spent with Patient: Total time spent is greater than 50% in coordination of care (as documented) at patient's floor/unit and/or counseling patient: Coding Level of Care Code 35010 SUB INP/OBS CARE 2/35MIN Diagnoses Hyperkalemia E87.5 Diabetes type 2, controlled E11.9 Sacral decubitus ulcer L89.159 PAM (acute kidney injury) N17.9 UTI (urinary tract infection) N39.0 Breast cancer C50.919 HTN (hypertension) I10
[2023-06-08] MEDS: INSULIN ASPART PER UNIT CHARGE SC SCH ×4 (09:42→21:45)
[2023-06-08] MEDS: LANTUS PER UNIT CHARGE SC SCH (09:43)
[2023-06-08] MEDS: carvediloL 12.5 MG TAB PO SCH ×2 (09:49→21:36)
[2023-06-08] MEDS: HEPARIN SOD 5,000 UNIT/0.5 ML VIAL SQ SCH ×2 (09:50→21:35)
[2023-06-08] MEDS: amLODIPine BESYLATE 5 MG TAB PO SCH ×2 (09:50→21:35)
[2023-06-08] MEDS: CYANOCOBALAMIN (B-12) 500 MCG TABLET PO SCH (09:50)
[2023-06-08] MEDS: PANTOprazole 40 MG in SYRINGE 0 ML IV SCH (13:20)
[2023-06-08] MEDS: ATORVASTATIN 10 MG TAB PO SCH (21:35)
[2023-06-08] MEDS: HEPARIN 100 UNIT/ML 5ML FLUSH FLUSH PRN (21:44)
[2023-06-09] MEDS: LEVOTHYROXINE SODIUM 150 MCG TABLET PO SCH (05:32)
[2023-06-09 06:40] LABS: Hematocrit (blood only) 21.4 % (37.0-47.0); Hemoglobin 7.2 g/dl (12.0-16.0); Mean Corpuscular Hemoglobin 31.3 pg (25.0-34.0); Mean Corpuscular Hgb Conc 33.6 g/dL (32.0-36.0); Mean Platelet Volume 11.6 fL (9.4-12.4); Platelet Count 205 K/uL (130-400); RDW Coefficient of Variation 17.4 % (11.5-14.5); RDW Standard Deviation 58.1 fL (36.4-46.3); White Blood Count 6.06 K/ul (4.8-10.8)
[2023-06-09 06:50] LABS: BUN Creatinine Ratio 39.4 (10-20); Calcium 8.2 mg/dl (8.6-10.3); Creatinine Clr Calc Pharmacy 49.8 ml/min; Est GFR (African American) 59.1 ml/min; Magnesium 1.7 mg/dl (1.7-2.4); Potassium 4.4 mmol/L (3.5-5.1)
[2023-06-09 07:34] LABS: Basophils # (auto) 0.02 K/uL (0-0.2); Basophils % (auto) 0.3 %; Eosinophils # (auto) 0.33 K/uL (0-0.50); Eosinophils % (auto) 5.4 %; Immature Granulocytes # (auto) 0.04 K/uL (0.01-0.20); Immature Granulocytes % (auto) 0.7 %; Lymphocytes # (auto) 1.12 K/uL (1.2-3.4); Lymphocytes % (auto) 18.5 %; Monocytes % (auto) 11.6 %; Neutrophils # (auto) 3.85 K/uL (1.40-6.50); Neutrophils % (auto) 63.5 %; Polychromasia 1+
--- NOTE | 2023-06-09 07:54 | Hospitalist Progress Note ---
Date of Service June 09, 2023 Assessment & Plan (1) Hyperkalemia: Plan: -Found to be hyperkalemic at 5.9 in the ED -Now improved -Likely multifactorial including mild PAM and continued KCL ER supplementation at [facility] with last dose day of admission - hypomagnesemia is improved -hyponatremia improved -Free water restriction added to diet order and explained to nursing staff and patient. She can have liquids with electrolytes Anemia: transfused 1 unit of PRBC on 06/04 Hemoglobin appears stable with slow downtrend but following without need for recurrent transfusion Iron checked and found to be stable as well as B12 and folic acid Pantoprazole transition to oral (2) Diabetes type 2, controlled: Plan: -Noted to be hyperglycemic at 375 on arrival -Per [facility] JAN, metformin had been held since last week due to Diarrhea, patient was still on Jardiance -S/P 5 units IV insulin for hyperkalemia on admission -Will hold oral agents -Monitor BSg q4h until glucose and electrolytes are stable -Start 5 units lantus BID and CF of 50 q4h for now -Pharmacy glycemic consult placed -DMII diet (3) Sacral decubitus ulcer: Plan: Sacral decubitusStage III poa -Patient with large and deep sacral decubitus ulcer which has been present for t he past month -Ulcer is draining purulnece on admission, however, no drainage noted on further exams. D/W wound care, does not appear to be infected, completed about 7 days of IV antibiotics -Culture results from [facility] as per HPI -Had been on Augmentin and Flagyl -surgery reports no need for surgical intervention -continue wound care Appreciate input from wound care. Patient does not want to try a wound vac given increased fall risk and needing to carry around pump. Patient will continue conservative wound care management at this time. (4) PAM (acute kidney injury): Plan: -Cr today is 1.58, baseline appears near 1.1-1.2 -Likely due to dehydration, infections, and possibly chemotherapy -Continue to hold Telmisartan/Torsemide (5) UTI (urinary tract infection): Plan: Possible sepsis in the setting of sacral decubitus and possible UTI in immunocompromised patient -Patient was being treated for possible UTI at [facility], no UA or urine cultures available at this time -repeat UA and urine culture on admission - stop antibiotics on AM of 06/08 Completed 7 days of inpatient antibiotics (6) Breast cancer: Plan: -S/P left total mastectomy in January of this year -Follows with Dr. Escoto -Had been on weekly Paclitaxel and trastuzumab therapy but has been on a 3 week break due to clinical decline -Patient will stop Paclitaxel but continue trastuzumab per her discussions with Dr. Escoto by previous provider -If she has a prolonged admission would consult Dr. Escoto to follow to help with coordination of care on discharge as next treatment is scheduled for next (7) HTN (hypertension): Plan: -Stable -Can continue amlodipine and carvedilol but will hold Telmisartan and torsemide Plan -SQ heparin for DVT PPX -DMII diet, No free water due to hyponatremia Plan was to discharge [facility] to [facility] on 06/07, however patient was positive for COVID 19. Discharge held, patient is asymptomatic. Admission and Anticipated Discharge Date Admission Date: June 01, 2023 Subjective pt is doing well, no symptoms from COVID with exception of some soft stools Physical Exam Physical Exam: Pt is awake and alert no cough or sob, lungs are clear cardiac is regular Results & Data Results & Data Vital Signs (Past 12 Hours) Vital Signs Temp Pulse Pulse Resp BP Pulse Ox O2 Del Method 06/09/23 07:14 60 06/09/23 03:17 98.1 F 57 L 18 110/65 97 Room Air 06/08/23 23:00 63 06/08/23 23:16 97.3 F L 63 18 121/61 99 Room Air 06/08/23 21:15 97.5 F L 65 18 120/72 99 Room Air PG Care Time/CCT Total # of Minutes Spent Total Time Spent with Patient: Total time spent is greater than 50% in coordination of care (as documented) at patient's floor/unit and/or counseling patient: Coding Level of Care Code 22335 SUB INP/OBS CARE 2/35MIN Diagnoses Hyperkalemia E87.5 Diabetes type 2, controlled E11.9 Sacral decubitus ulcer L89.159 PAM (acute kidney injury) N17.9 UTI (urinary tract infection) N39.0 Breast cancer C50.919 HTN (hypertension) I10
[2023-06-09] MEDS: INSULIN ASPART PER UNIT CHARGE SC SCH ×4 (09:20→20:14)
[2023-06-09] MEDS: LANTUS PER UNIT CHARGE SC SCH (09:21)
[2023-06-09] MEDS: CYANOCOBALAMIN (B-12) 500 MCG TABLET PO SCH (09:27)
[2023-06-09] MEDS: carvediloL 12.5 MG TAB PO SCH ×2 (09:28→20:52)
[2023-06-09] MEDS: amLODIPine BESYLATE 5 MG TAB PO SCH ×2 (09:28→20:52)
[2023-06-09] MEDS: HEPARIN SOD 5,000 UNIT/0.5 ML VIAL SQ SCH ×2 (09:29→20:52)
--- NOTE | 2023-06-09 09:47 | Pharmacy Report ---
Pharmacy Glycemic Short Note 2 - Date of Service June 09, 2023 - Glycemic Short BSG Results (Last 24 hours): 06/08/23 06/08/23 06/08/23 11:04 16:45 16:45 Glucose POC Glucose 148 H 58 L* 58 L* 06/08/23 06/08/23 06/08/23 17:08 17:11 17:54 Glucose POC Glucose 56 L* 62 L* 196 H 06/08/23 06/09/23 06/09/23 21:08 05:44 07:45 Glucose 119 H POC Glucose 205 H 144 H OUTPATIENT ANTIDIABETIC REGIMEN: * Metformin 1g PO BID * Jardiance 10mg PO daily HbA1c: 5.8% (01/25/23) ASSESSMENT: 06/09/23: * Stressors stable * Severe hypoglycemic event yesterday at dinner - unclear etiology. This same regimen has been controlling BSG's well x5 days prior, and this was a rather unexpected result. However, given severity, to prevent repeat hypoglycemia, will loosen Novolog parameters at lunch * AM fasting BSG in goal range - no change to Lantus 06/06/23: * Fasting 136 mg/dL this morning, continue 8 units of basal qAM * Prandial BSGs remain within target range, will continue current regimen * Consider signing off tomorrow if BSGs remain stable 06/03/23: * BSGs well-controlled yesterday, w/ fasting BSG of 143 mg/dL this morning * No basal given yesterday, 10 units of bolus only * Will restart conservative basal dose (~0.1 unit/kg) * Do not anticipate any other changes to glycemic regimen 06/01/23: * 73 yo female, resident of [facility], [facility] left invasive ductal carcinoma S/P left mastectomy currently on Paclitaxel and trastuzumab therapy, AFib, hyperthyroidism S/P thyroid ablation, hypothyroidism, HTN, and DM II who presented to the [facility] ED via EMS on 06/01 due to abnormal outpatient labs. * BSG 375mg/dl on admission, given 5 units of regular insulin IV, BSG down to 300mg/dl after, starting NovoLog and Lantus in ED. * Pt is maintained on oral antidiabetic agents as an outpatient * Oral agents are not recommended for inpatient use d/t drug interactions, changing PO intake, and difficulty titrating for acute hyper/hypoglycemia. ADA recommends re-initiating outpatient oral agents 1-2 days prior to discharge if/when appropriate if they were held on admission. * Will hold oral agents for admission and utilize SQ basal bolus insulin regimen which is the recommended regimen for inpatient glycemic control. * Will initiate weight based insulin dosing for insulin kamille patient and titrate based on BSG trends. PLAN FOR INPATIENT GLYCEMIC CONTROL: * Hold outpatient diabetes medications * Basal insulin * Lantus 8 units SC daily (~0.1 unit/kg) * Bolus insulin * NovoLog per scale ACHS or Q6hrs while NPO * Goal Range: Low 110 mg/dL - High 140 mg/dL * Correction Factor: 30 mg/dL/unit at breakfast, dinner, bedtime. 35 mg/dL/unit at lunch * Carb ratio: 10 g CHO/unit at breakfast, dinner, bedtime. 13 g CHO/unit at lunch
[2023-06-09] MEDS ORDERED: INSULIN ASPART PER UNIT CHARGE SC SCH (11:30)
[2023-06-09] MEDS: PANTOprazole 40 MG in SYRINGE 0 ML IV SCH (11:33)
[2023-06-09] MEDS: HEPARIN 100 UNIT/ML 5ML FLUSH FLUSH PRN (14:58)
[2023-06-09] MEDS: ATORVASTATIN 10 MG TAB PO SCH (20:52)
[2023-06-10] MEDS: HEPARIN 100 UNIT/ML 5ML FLUSH FLUSH PRN ×2 (00:43→20:46)
[2023-06-10 06:15] LABS: Hematocrit (blood only) 22.1 % (37.0-47.0); Hemoglobin 7.4 g/dl (12.0-16.0); Mean Corpuscular Hemoglobin 31.2 pg (25.0-34.0); Mean Corpuscular Hgb Conc 33.5 g/dL (32.0-36.0); Mean Corpuscular Volume 93.2 fL (80.0-100.0); Mean Platelet Volume 11.5 fL (9.4-12.4); Platelet Count 231 K/uL (130-400); RDW Coefficient of Variation 17.7 % (11.5-14.5); RDW Standard Deviation 59.8 fL (36.4-46.3); Red Blood Count 2.37 M/uL (4.20-5.40); White Blood Count 5.71 K/ul (4.8-10.8)
[2023-06-10 06:31] LABS: BUN Creatinine Ratio 45.5 (10-20); Calcium 8.4 mg/dl (8.6-10.3); Creatinine Clr Calc Pharmacy 49.3 ml/min; Est GFR (African American) 58.5 ml/min; Est GFR (Non-African American) 50.5 ml/min; Potassium 4.6 mmol/L (3.5-5.1)
[2023-06-10] MEDS: LEVOTHYROXINE SODIUM 150 MCG TABLET PO SCH (06:52)
[2023-06-10] MEDS: INSULIN ASPART PER UNIT CHARGE SC SCH ×4 (09:02→20:01)
[2023-06-10] MEDS: LANTUS PER UNIT CHARGE SC SCH (09:04)
[2023-06-10] MEDS: CYANOCOBALAMIN (B-12) 500 MCG TABLET PO SCH (09:11)
[2023-06-10] MEDS: amLODIPine BESYLATE 5 MG TAB PO SCH ×2 (09:12→21:38)
[2023-06-10] MEDS: carvediloL 12.5 MG TAB PO SCH ×2 (09:42→21:37)
[2023-06-10] MEDS: PANTOprazole 40 MG TAB PO SCH (09:42)
[2023-06-10] MEDS: HEPARIN SOD 5,000 UNIT/0.5 ML VIAL SQ SCH ×2 (09:43→21:38)
[2023-06-10] MEDS: ACETAMINOPHEN 325 MG TAB PO PRN ×2 (10:06→16:56)
[2023-06-10] MEDS: ONDANSETRON INJ 2 MG/ML 2 ML VIAL IV PRN ×2 (11:55→20:46)
--- NOTE | 2023-06-10 16:51 | Hospitalist Progress Note ---
Date of Service June 10, 2023 Assessment & Plan (1) Hyperkalemia: Plan: -Found to be hyperkalemic at 5.9 in the ED -Now improved -Likely multifactorial including mild PAM and continued KCL ER supplementation at [facility] with last dose day of admission - hypomagnesemia is improved -hyponatremia improved -Free water restriction added to diet order and explained to nursing staff and patient. She can have liquids with electrolytes Anemia: transfused 1 unit of PRBC on 06/04 Hemoglobin appears stable but low Iron checked and found to be stable as well as B12 and folic acid, Pantoprazole transition to oral (2) Diabetes type 2, controlled: Plan: -Noted to be hyperglycemic at 375 on arrival -Per [facility] JAN, metformin had been held since last week due to Diarrhea, patient was still on Jardiance -S/P 5 units IV insulin for hyperkalemia on admission -Will hold oral agents -Monitor BSg q4h until glucose and electrolytes are stable -Start 5 units lantus BID and CF of 50 q4h for now -Pharmacy glycemic consult placed -DMII diet (3) Sacral decubitus ulcer: Plan: Sacral decubitusStage III poa -Patient with large and deep sacral decubitus ulcer which has been present for the past month -Ulcer is draining purulnece on admission, however, no drainage noted on further exams. D/W wound care, does not appear to be infected, completed about 7 days of IV antibiotics -Culture results from [facility] as per HPI -Had been on Augmentin and Flagyl -surgery reports no need for surgical intervention -continue wound care Appreciate input from wound care. Patient does not want to try a wound vac given increased fall risk and needing to carry around pump. Patient will continue conservative wound care management at this time. (4) PAM (acute kidney injury): Plan: -Cr today is 1.58, baseline appears near 1.1-1.2 -Likely due to dehydration, infections, and possibly chemotherapy -Continue to hold Telmisartan/Torsemide (5) UTI (urinary tract infection): Plan: Possible sepsis in the setting of sacral decubitus and possible UTI in immunocompromised patient -Patient was being treated for possible UTI at [facility], no UA or urine cultures available at this time -repeat UA and urine culture on admission - stop antibiotics on AM of 06/08 Completed 7 days of inpatient antibiotics (6) Breast cancer: Plan: -S/P left total mastectomy in January of this year -Follows with Dr. Escoto -Had been on weekly Paclitaxel and trastuzumab therapy but has been on a 3 week break due to clinical decline -Patient will stop Paclitaxel but continue trastuzumab per her discussions with Dr. Escoto by previous provider -If she has a prolonged admission would consult Dr. Escoto to follow to help with coordination of care on discharge as next treatment is scheduled for next (7) HTN (hypertension): Plan: -Stable -Can continue amlodipine and carvedilol but will hold Telmisartan and torsemide Plan -SQ heparin for DVT PPX -DMII diet, No free water due to hyponatremia Plan was to discharge back to [facility] on 06/07, however patient was positive for COVID 19. Discharge held, patient is asymptomatic. Admission and Anticipated Discharge Date Admission Date: June 01, 2023 Subjective pt is doing well, no symptoms from COVID with exception of some soft stools Physical Exam Physical Exam: Pt is awake and alert no cough or sob, lungs are clear cardiac is regular Results & Data Results & Data Vital Signs (Past 12 Hours) Vital Signs Temp Pulse Pulse Resp BP Pulse Ox O2 Del Method 06/10/23 16:35 98.2 F 66 18 119/71 95 Room Air 06/10/23 15:49 59 L 06/10/23 11:58 98.2 F 56 L 20 101/67 98 Room Air 06/10/23 09:00 97.3 F L 64 18 105/67 99 Room Air 06/10/23 07:18 63 PG Care Time/CCT Total # of Minutes Spent Total Time Spent with Patient: Total time spent is greater than 50% in coordination of care (as documented) at patient's floor/unit and/or counseling patient: Coding Level of Care Code 23938 SUB INP/OBS CARE 1/25MIN Diagnoses Hyperkalemia E87.5 Diabetes type 2, controlled E11.9 Sacral decubitus ulcer L89.159 PAM (acute kidney injury) N17.9 UTI (urinary tract infection) N39.0 Breast cancer C50.919 HTN (hypertension) I10
[2023-06-10] MEDS: ATORVASTATIN 10 MG TAB PO SCH (21:37)
[2023-06-11] MEDS: LEVOTHYROXINE SODIUM 150 MCG TABLET PO SCH (05:46)
[2023-06-11 06:23] LABS: Hematocrit (blood only) 22.4 % (37.0-47.0); Hemoglobin 7.4 g/dl (12.0-16.0); Mean Corpuscular Hemoglobin 30.7 pg (25.0-34.0); Mean Corpuscular Volume 92.9 fL (80.0-100.0); Mean Platelet Volume 11.5 fL (9.4-12.4); Platelet Count 231 K/uL (130-400); RDW Standard Deviation 61.1 fL (36.4-46.3); Red Blood Count 2.41 M/uL (4.20-5.40); White Blood Count 7.07 K/ul (4.8-10.8)
[2023-06-11] MEDS: INSULIN ASPART PER UNIT CHARGE SC SCH ×4 (09:33→20:12)
[2023-06-11] MEDS: LANTUS PER UNIT CHARGE SC SCH (09:34)
[2023-06-11] MEDS: ACETAMINOPHEN 325 MG TAB PO PRN (09:39)
[2023-06-11] MEDS: carvediloL 12.5 MG TAB PO SCH ×2 (09:40→20:05)
[2023-06-11] MEDS: amLODIPine BESYLATE 5 MG TAB PO SCH ×2 (09:40→20:04)
[2023-06-11] MEDS: PANTOprazole 40 MG TAB PO SCH (09:40)
[2023-06-11] MEDS: HEPARIN SOD 5,000 UNIT/0.5 ML VIAL SQ SCH ×2 (09:41→20:06)
[2023-06-11] MEDS: CYANOCOBALAMIN (B-12) 500 MCG TABLET PO SCH (09:41)
--- NOTE | 2023-06-11 16:47 | Hospitalist Progress Note ---
Date of Service June 11, 2023 Assessment & Plan (1) Hyperkalemia: Plan: -Found to be hyperkalemic at 5.9 in the ED -Now improved -Likely multifactorial including mild PAM and continued KCL ER supplementation at [facility] with last dose day of admission question if diarrhea from COVID could have precipitated dehydration - hypomagnesemia is improved -hyponatremia improved -Free water restriction added to diet order and explained to nursing staff and patient. She can have liquids with electrolytes Anemia: transfused 1 unit of PRBC on 06/04 Hemoglobin appears stable but low Iron checked and found to be stable as well as B12 and folic acid, Pantoprazole transition to oral (2) Diabetes type 2, controlled: Plan: -Noted to be hyperglycemic at 375 on arrival -Per [facility] JAN, metformin had been held since last week due to Diarrhea, patient was still on Jardiance -S/P 5 units IV insulin for hyperkalemia on admission -Will hold oral agents -Monitor BSg q4h until glucose and electrolytes are stable -Start 5 units lantus BID and CF of 50 q4h for now -Pharmacy glycemic consult placed -DMII diet (3) Sacral decubitus ulcer: Plan: Sacral decubitusStage III poa -Patient with large and deep sacral decubitus ulcer which has been present for the past month -Ulcer is draining purulnece on admission, however, no drainage noted on further exams. D/W wound care, does not appear to be infected, completed about 7 days of IV antibiotics -Culture results from [facility] as per HPI -Had been on Augmentin and Flagyl -surgery reports no need for surgical intervention -continue wound care Appreciate input from wound care. Patient does not want to try a wound vac given increased fall risk and needing to carry around pump. Patient will continue conservative wound care management at this time. (4) PAM (acute kidney injury): Plan: -Cr today is 1.58, baseline appears near 1.1-1.2 -Likely due to dehydration, infections, and possibly chemotherapy -Continue to hold Telmisartan/Torsemide blood pressures have been stable (5) UTI (urinary tract infection): Plan: Possible sepsis in the setting of sacral decubitus and possible UTI in immunocompromised patient -Patient was being treated for possible UTI at [facility], no UA or urine cultures available at this time -repeat UA and urine culture on admission - stop antibiotics on AM of 8/3 Completed 7 days of inpatient antibiotics (6) Breast cancer: Plan: -S/P left total mastectomy in January of this year -Follows with Dr. Escoto -Had been on weekly Paclitaxel and trastuzumab therapy but has been on a 3 week break due to clinical decline -Patient will stop Paclitaxel but continue trastuzumab per her discussions with Dr. Escoto by previous provider -If she has a prolonged admission would consult Dr. Escoto to follow to help with coordination of care on discharge as next treatment is scheduled for next (7) HTN (hypertension): Plan: -Stable -Can continue amlodipine and carvedilol but will hold Telmisartan and torsemide Plan -SQ heparin for DVT PPX -DMII diet, No free water due to hyponatremia Plan was to discharge back to [facility] on 06/07, however patient was positive for COVID 19. Discharge held, patient is asymptomatic. Admission and Anticipated Discharge Date Admission Date: June 01, 2023 Subjective Attempts to get out of bed today were met with severe weakness. PT OT is or dered patient is scheduled to go to subacute rehab at shelter facility. Patient has absolutely 0 pulmonary effects from her recent diagnosis of COVID and her diarrhea has resolved Physical Exam Physical Exam: Awake alert and present more vibrant today cardiac exam remains regular lungs are clear extremities have 1 to trace edema bilaterally Results & Data Results & Data Vital Signs (Past 12 Hours) Vital Signs Temp Pulse Pulse Resp BP Pulse Ox O2 Del Method 06/11/23 15:22 98.2 F 70 16 121/72 95 Room Air 06/11/23 08:00 Room Air 06/11/23 07:17 72 Laboratory Results Reviewed CBC reviewed [id number] glucose PG Care Time/CCT Total # of Minutes Spent Total Time Spent with Patient: Total time spent is greater than 50% in coordination of care (as documented) at patient's floor/unit and/or counseling patient: Coding Level of Care Code 74694 SUB INP/OBS CARE 1/25MIN Diagnoses Hyperkalemia E87.5 Diabetes type 2, controlled E11.9 Sacral decubitus ulcer L89.159 PAM (acute kidney injury) N17.9 UTI (urinary tract infection) N39.0 Breast cancer C50.919 HTN (hypertension) I10
[2023-06-11] MEDS: ATORVASTATIN 10 MG TAB PO SCH (20:05)
[2023-06-12] MEDS: LEVOTHYROXINE SODIUM 150 MCG TABLET PO SCH (06:13)
[2023-06-12 06:22] LABS: Hematocrit (blood only) 22.6 % (37.0-47.0); Hemoglobin 7.4 g/dl (12.0-16.0); Mean Corpuscular Hemoglobin 30.8 pg (25.0-34.0); Mean Corpuscular Hgb Conc 32.7 g/dL (32.0-36.0); Mean Corpuscular Volume 94.2 fL (80.0-100.0); Mean Platelet Volume 11.4 fL (9.4-12.4); Platelet Count 245 K/uL (130-400); RDW Coefficient of Variation 18.3 % (11.5-14.5); RDW Standard Deviation 62.8 fL (36.4-46.3); White Blood Count 6.72 K/ul (4.8-10.8)
[2023-06-12] MEDS: amLODIPine BESYLATE 5 MG TAB PO SCH (08:06)
[2023-06-12] MEDS: PANTOprazole 40 MG TAB PO SCH (08:06)
[2023-06-12] MEDS: carvediloL 12.5 MG TAB PO SCH (08:06)
[2023-06-12] MEDS: CYANOCOBALAMIN (B-12) 500 MCG TABLET PO SCH (08:07)
[2023-06-12] MEDS: INSULIN ASPART PER UNIT CHARGE SC SCH ×2 (08:21→12:33)
[2023-06-12] MEDS: LANTUS PER UNIT CHARGE SC SCH (08:21)
[2023-06-12] MEDS: HEPARIN SOD 5,000 UNIT/0.5 ML VIAL SQ SCH (08:24)
--- NOTE | 2023-06-12 09:36 | Pharmacy Report ---
Pharmacy Glycemic Short Note 2 - Date of Service June 12, 2023 - Glycemic Short BSG Results (Last 24 hours): 06/11/23 06/11/23 06/11/23 11:26 11:46 16:58 POC Glucose 153 H 134 H 124 H 06/11/23 06/12/23 20:12 07:56 POC Glucose 132 H 172 H OUTPATIENT ANTIDIABETIC REGIMEN: * Metformin 1g PO BID * Jardiance 10mg PO daily * HbA1c: 5.8% (01/25/23) ASSESSMENT: 06/12: * Patient received 23 and 19 units of insulin on Monday and Monday, respectively. 8 units basal plus average of 13 units bolus. BSGs were controlled: 125-896-377-111 mg/dL and 295-013-535-132 mg/dL. * Fasting BSG slightly elevated from previous few days at 172 mg/dL this AM. Stable stressors so unsure of etiology for this. Will not make any changes to insulin regimen today; however, if trend continues tomorrow, then change in basal dosing may be necessary. 06/09: * Stressors stable * Severe hypoglycemic event yesterday at dinner - unclear etiology. This same regimen has been controlling BSG's well x5 days prior, and this was a rather unexpected result. However, given severity, to prevent repeat hypoglycemia, will loosen Novolog parameters at lunch * AM fasting BSG in goal range - no change to Lantus 06/06: * Fasting 136 mg/dL this morning, continue 8 units of basal qAM * Prandial BSGs remain within target range, will continue current regimen * Consider signing off tomorrow if BSGs remain stable 06/03: * BSGs well-controlled yesterday, w/ fasting BSG of 143 mg/dL this morning * No basal given yesterday, 10 units of bolus only * Will restart conservative basal dose (~0.1 unit/kg) * Do not anticipate any other changes to glycemic regimen 06/01: * 73 yo female, resident of [facility], H left invasive ductal carcinoma S/P left mastectomy currently on Paclitaxel and trastuzumab therapy, AFib, hyperthyroidism S/P thyroid ablation, hypothyroidism, HTN, and DM II who presented to the [facility] ED via EMS on 06/01 due to abnormal outpatient labs. * BSG 375mg/dl on admission, given 5 units of regular insulin IV, BSG down to 300mg/dl after, starting NovoLog and Lantus in ED. * Pt is maintained on oral antidiabetic agents as an outpatient * Oral agents are not recommended for inpatient use d/t drug interactions, changing PO intake, and difficulty titrating for acute hyper/hypoglycemia. ADA recommends re-initiating outpatient oral agents 1-2 days prior to discharge if/when appropriate if they were held on admission. * Will hold oral agents for admission and utilize SQ basal bolus insulin regimen which is the recommended regimen for inpatient glycemic control. * Will initiate weight based insulin dosing for insulin kamille patient and titrate based on BSG trends. PLAN FOR INPATIENT GLYCEMIC CONTROL: * Hold outpatient diabetes medications * Basal insulin * Lantus 8 units SC daily (~0.1 unit/kg) * Bolus insulin * NovoLog per scale ACHS or Q6hrs while NPO * Goal Range: Low 110 mg/dL - High 140 mg/dL * Correction Factor: 30 mg/dL/unit at breakfast, dinner, bedtime. 35 mg/dL/unit at lunch (goal range 120-160 at lunch) * Carb ratio: 10 g CHO/unit at breakfast, dinner, bedtime. 13 g CHO/unit at lunch (goal range 120-160 at lunch)
--- NOTE | 2023-06-12 15:54 | Discharge Summary ---
Date of Service June 12, 2023 Admission HPI Per Admitting Provider Annmarie is a 73 year old female resident of [facility] with a PMH significant for left invasive ductal carcinoma S/P left mastectomy currently on Paclitaxel and trastuzumab therapy , atrial fibrillation in the setting of hyperthyroidism S/P thyroid ablation, hypothyroidism, HTN, and DM II who presented to the [facility] ED via EMS on 06/01 due to abnormal outpatient labs. In the ED the patient was noted to be hypothermic at 35.8C but otherwise stable. Labs were significant for a leukocytosis of 14 with left shift of 13, hgb of 8.1, lymphopenia of 0.47, cr of 1.58 (baseline is near 1.1-1.2), BUN of 41, glucose of 375, corrected sodium of 128, potassium of 5.9, chloride of 97, mag of 1.2. Chest xray was read as "1. Healing left lateral rib fractures. No pneumothorax. 2. Bibasilar linear densities are nonspecific but favor subsegmental atelectasis or scarring.". Prior to admission the patient was given 1L NSS and a dose of cefepime. At the time of the exam the exam the patient was sitting in bed in no acute distress. She states that she was moved into the custodial facility at [facility] last as she was requiring more assistance than was provided at the assisted living section. Prior to the move she had been dealing with frequent diarrhea due to her chemotherapy, this has resolved since last . She states that she had a visit with Dr. Escoto yesterday to discuss further treatment plans. She will no longer be taking the Paclitaxel as the side effects have been too severe. She will continue taking weekly trastuzumab with her next appointment scheduled for next . She tells me that she was started on antibiotics at [facility] both for her sacral wound and for a possible UTI, she is unsure of the antibiotics she has been on recently. She states that she was sent to the ED both for her worsening sacral wound and for her abnormal labs this am. She wishes to be a full code. Per her transfer documentation from [facility], the patient was given one dose of Ceftriaxone on 05/29, has been on Augmentin and Flagyl since 05/30, the description states that these antibiotics are for UTI and her Sacral wound. Her last dose of torsemide and telmisartan was given on 05/26. The patient has also been on Potassium Chloride ER tabs, 20 mg daily with her last dose being this am. Wound cultures were obtained at [facility], collection date of 05/27 with report date of 05/31. Per the provided records the patient's wound has grown Staph Aureus, Bacteroides Fragilis, and Clostridium Perfringens. Please refer to Dr. Carpio's attestation for any changes to the treatment Principal Diagnosis Acute kidney injury secondary to diarrhea Hyperkalemia hyponatremia COVID testing positive Deconditioning and weakness Sacral decubitus POA Anemia status posttransfusion 1 unit packed red blood cells Discharge Exam Awake alert and present more vibrant today cardiac exam remains regular lungs are clear extremities have 1 to trace edema bilaterally Discharge Data Allergies Allergy/AdvReac Type Severity Reaction Status Date / Time No Known Drug Allergies Allergy Unknown Verified 03/17/23 11:02 lactose AdvReac Verified 06/01/23 12:15 Consultations 06/01/23 12:36 ED Decision to Admit Stat 06/01/23 13:31 Consult General Surgery Routine Ordered Studies 06/01/23 13:29 CT Abd and Pelvis [CT abd pelvis IV con only] Stat Hospital Course (1) Hyperkalemia: -Found to be hyperkalemic at 5.9 in the ED -Now improved -Likely multifactorial including mild KLAUDIA and continued KCL ER supplementation at [facility] with last dose day of admission question if diarrhea from COVID could have precipitated dehydration - hypomagnesemia is improved -hyponatremia improved -Free water restriction improved hyponatremia surveillance of low sodium would be advised at times Anemia: transfused 1 unit of PRBC on 06/04 Hemoglobin appears stable but low Iron checked and found to be stable as well as B12 and folic acid, Pantoprazole transition to oral (2) Diabetes type 2, controlled: -Noted to be hyperglycemic at 375 on arrival -Per [facility] JAN, metformin had been held due to Diarrhea, patient was still on Jardiance Patient will be on sliding scale may consider returning to metformin and Jardiance once fully recovered (3) Sacral decubitus ulcer: Sacral decubitusStage III poa -Patient with large and deep sacral decubitus ulcer which has been present for the past month -Ulcer is draining purulence on admission, however, no drainage noted on further exams. D/W wound care, does not appear to be infected, completed about 7 days of IV antibiotics - -surgery reports no need for surgical intervention -continue local wound care we will keep López catheter at time of discharge to avoid having the area become wet Appreciate input from wound care. Patient does not want to try a wound vac given increased fall risk and needing to carry around pump. Patient will continue conservative wound care management at this time. (4) KLAUDIA (acute kidney injury): -Cr today is 1.58, baseline appears near 1.1-1.2 -Likely due to dehydration, infections, and possibly chemotherapy -Continue to hold Telmisartan/Torsemide blood pressures have been stable (5) UTI (urinary tract infection): Possible sepsis in the setting of sacral decubitus and possible UTI in immunocompromised patient -Patient was being treated for possible UTI at [facility], no UA or urine cultures available at this time -repeat UA and urine culture on admission - stop antibiotics on AM of 8 Completed 7 days of inpatient antibiotics (6) Breast cancer: -S/P left total mastectomy in January of this year -Follows with Dr. Escoto -Had been on weekly Paclitaxel and trastuzumab therapy but has been on a 3 week break due to clinical decline -Patient will stop Paclitaxel but continue trastuzumab per her discussions with Dr. Escoto by previous provider -If she has a prolonged admission would consult Dr. Escoto to follow to help with coordination of care on discharge as next treatment is scheduled for next (7) HTN (hypertension): -Stable -Can continue amlodipine and carvedilol but will hold Telmisartan and torsemide Plan - Patient is currently asymptomatic from a COVID unless her diarrhea which initially caused her presentation was part of her COVID as her initial COVID test was PCR on her subsequent COVID test was PCR Total Time Total Time Spent Total Time Spent (In Minutes): It required greater than 30 minutes to prepare this patient for discharge Discharge Plan Discharge Items Patient Disposition: Transfer Correction Fac Reason For Visit: HYPERKALEMIA, HYPONATREMIA, SACRAL WOUND Discharge Diagnosis: klaudia with hyperkalemia hyponatremia anemia s/p transfusion 1 u prbc Covid test positive sacral decubitus ulcer, poa, lópez in place at dc Activity: Per Instructions section Activity Comment: per PT OT Non-emergency contact: Primary Care Provider Call non-emergency contact if: your symptoms worsen Follow-up/Referrals: Luna Adamson PA-C [Primary Care Provider] - Diet: Regular Addtl Attending Provider Instructions: Pt was diagnosed with incidental covid by PCR on 06/06/23, this maybe what was causing her diarrhea but she tested negative on admission although this was not pcr. by our hospital isolation she should be in isolation until 06/17/23 but you may follow your facility regulations patient did receive 1 unit packed red blood cells for anemia her hemoglobin augmented from 6 g in the mid 7 g range and we recommended to continue to follow this she has no evidence of worsening or blood loss however nutritional supplementation and vitamins could be helpful to replete the patient's due to acute kidney injury her telmisartan and torsemide have been held and will be held at discharge if blood pressure becomes a challenge consider carefully restarting the 10 losartan and watching her renal function sacral decubitus ulcer ulcer present on admission López catheter is going to be in place at time of discharge to help reduce maceration of the tissue this can be remove once her wound heals patient has a history of breast cancer status post total mastectomy January [address] Brooks he is recommending her medications to be modified to just trastuzumab but would recommend coordinating follow-up with his care Pending Studies at Discharge: No Stand-Alone Forms: My [facility] Skilled Items Patient informed of condition?: No DNR: No Discharge Level of Care: Skilled Communicable Disease: Yes Discharge Prognosis: Stable Lines: None Urinary Catheter: Yes Medications and DC Order Prescriptions: New pantoprazole 40 mg Tablet,Delayed Release (Dr/Ec) 40 mg PO QAM Qty: 30 0RF Continued cholecalciferol (vitamin D3) 2,000 unit tablet 2,000 units PO .COMPLEX Qty: 1 0RF Rx Instructions: Take 1 tablet by mouth during the summer and 2 tablets in the winter cyanocobalamin (vitamin B-12) 1,000 mcg capsule 1,000 mcg PO DAILY Qty: 30 0RF carvedilol 12.5 mg tablet 12.5 mg PO BID Qty: 180 3RF Rx Instructions: must administer with a meal/food (DME) lancets [Accu-Chek Fastclix Lancet Drum] Misc See Rx Instructions .ROUTE .MEDSUPPLY Qty: 100 3RF Rx Instructions: Test blood sugars once daily levothyroxine 150 mcg tablet 150 mcg PO DAILY Qty: 90 3RF amlodipine 5 mg tablet 5 mg PO BID Qty: 60 5RF metformin 500 mg tablet extended release 24 hr 1,000 mg PO BID Qty: 360 3RF alendronate 70 mg tablet See Rx Instructions .ROUTE .COMPLEX Qty: 12 3RF Rx Instructions: TAKE 1 TAB ONCE WEEKLY 30 MINUTES PRIOR TO BREAKFAST WITH FULL GLASS OF WATER. STAY UPRIGHT 30 MINUTES. Monday Jardiance 10 mg tablet 10 mg PO DAILY Qty: 90 3RF (DME) blood-glucose meter [Accu-Chek Guide Glucose Meter] Misc See Rx Instructions .Route Qty: 1 0RF Rx Instructions: As directed (DME) Accu-Chek Guide test strips Strip See Rx Instructions .ROUTE .MEDSUPPLY Qty: 100 0RF Rx Instructions: Test blood sugars once daily atorvastatin 10 mg tablet 10 mg PO HS diphenoxylate-atropine [Lomotil] 2.5-0.025 mg tablet 2 tab PO QID PRN (Reason: diarrhea) Qty: 60 0RF Rx Instructions: 2 tabs QID until control achieved, then reduce dose to maintain control Discontinued torsemide 10 mg tablet 10 mg PO DAILY Qty: 30 5RF telmisartan 80 mg tablet 80 mg PO DAILY Discharge Orders: Discharge Order (Routine); Ordered 06/12/23 Ordered By: Isra Mora Admission Data Admit Date/Time: 06/01/23 12:54 Attending Provider: Isra Mora Admit Provider: Yo Carpio Primary Care Provider: Luna Adamson Other Providers: Mallory Jones ; Yo Carpio Other Interventions: Discharge Summary Assessment (RN) Last Done: 06/12/23 13:00 Coding Level of Care Code 22582 INP/OBS DISCH >30 MIN Diagnoses Hyperkalemia E87.5 Diabetes type 2, controlled E11.9 Sacral decubitus ulcer L89.159 KLAUDIA (acute kidney injury) N17.9 UTI (urinary tract infection) N39.0 Breast cancer C50.919 HTN (hypertension) I10
== END 2023-06-12 15:32 | DRG 871 ==
LOC: ED 10:21 → EDINP 12:54 → SUATTDRO 12:54 → 2S 15:11 → 3E 06-11 11:39